=== PATIENT | male | born 1970 | race Caucasian/White ===

== ENCOUNTER 2018-01-16 14:44 | Inpatient (IN) | payer MEDICARE, OTHER ==
[~2018-01-16] VITALS: Ht 170.2 cm; Wt 56.7 kg
--- NOTE | 2018-01-16 14:47 | Emergency Room Report ---
History of Present Illness General Chief Complaint: Fever Source: EMS Present Illness HPI Patient is a 47-year-old male brought in by EMS after increased fever and generalized weakness. Patient had gradual onset of symptoms. Patient had diminished oral intake. Patient prior history of COPD as well as [place]'s chorea and paranoid schizophrenia. The patient was noted a temperature up to 101. History is markedly limited by patient's mental status. Patient is nonverbal at baseline per EMS Allergies: Coded Allergies: No Known Allergies (Unverified , 01/16/18) Patient History Past Medical History: see triage record Reviewed Nursing Documentation: PMH: Agreed; PSxH: Agreed Review of Systems All Other Systems: limited - by mental status Physical Exam Vital Signs Date Time Temp Pulse Resp B/P (MAP) Pulse Ox O2 Delivery O2 Flow Rate FiO2 01/16/18 14:38 101.0 106 16 163/84 96 Room Air 100.9 Sp02 EP Interpretation: reviewed, normal General Appearance: normal inspection, alert, Chronically Ill Head: atraumatic ENT: normal ENT inspection, hearing grossly normal, normal voice Neck: normal inspection, full range of motion, supple, no bony tend Respiratory: normal inspection, lungs clear, normal breath sounds, no respiratory distress, no retraction, no wheezing Cardiovascular #1: regular rate, rhythm, no edema Gastrointestinal: normal inspection, normal bowel sounds, non tender, soft, no guarding, no hernia Genitourinary: no CVA tenderness Musculoskeletal: normal inspection, back normal, normal range of motion Neurologic: normal inspection, alert, responsive, motor weakness, other - choreaform movements Psychiatric: normal inspection, judgement/insight normal, mood/affect normal Skin: normal inspection, normal color, no rash Medical Decision Making Diagnostic Impression: Primary Impression: Sepsis Additional Impression: Rhabdomyolysis ER Course Patient presented for fever. Differential diagnosis included wasn't limited to pneumonia, urinary tract infection, drug fever, allergic reaction, sepsis, cholecystitis, among others.Because of complexity of patient's case laboratory testing and imaging studies were ordered.The white blood count was noted be mildly elevated. Patient was noted to be febrile with temperature greater than 101. A coud catheter was placed.Dr. Shaheed Vazquez was contacted for inpatient management due to complexity of medical condition. Labs Test 01/16/18 15:15 01/16/18 16:00 01/16/18 16:45 White Blood Count 12.6 K/UL (4.8-10.8) Red Blood Count 4.87 M/UL (4.70-6.10) Hemoglobin 14.6 G/DL (14.2-18.0) Hematocrit 43.7 % (42.0-52.0) Mean Corpuscular Volume 90 FL (80-99) Mean Corpuscular Hemoglobin 29.9 PG (27.0-31.0) Mean Corpuscular Hemoglobin Concent 33.4 G/DL (32.0-36.0) Red Cell Distribution Width 11.0 % (11.6-14.8) Platelet Count 181 K/UL (150-450) Mean Platelet Volume 7.4 FL (6.5-10.1) Neutrophils (%) (Auto) % (45.0-75.0) Lymphocytes (%) (Auto) % (20.0-45.0) Monocytes (%) (Auto) % (1.0-10.0) Eosinophils (%) (Auto) % (0.0-3.0) Basophils (%) (Auto) % (0.0-2.0) Differential Total Cells Counted 100 Neutrophils % (Manual) 77 % (45-75) Lymphocytes % (Manual) 4 % (20-45) Monocytes % (Manual) 3 % (1-10) Eosinophils % (Manual) 0 % (0-3) Basophils % (Manual) 0 % (0-2) Band Neutrophils 16 % (0-8) Platelet Estimate Adequate Platelet Morphology Normal Red Blood Cell Morphology Normal Sodium Level 143 MMOL/L (136-145) Potassium Level 3.7 MMOL/L (3.5-5.1) Chloride Level 107 MMOL/L (98-107) Carbon Dioxide Level 27 MMOL/L (21-32) Anion Gap 10 mmol/L (5-15) Blood Urea Nitrogen 23 mg/dL (7-18) Creatinine 1.0 MG/DL (0.55-1.30) Estimat Glomerular Filtration Rate > 60 mL/min (>60) Glucose Level 183 MG/DL (74-106) Calcium Level 9.2 MG/DL (8.5-10.1) Phosphorus Level 2.4 MG/DL (2.5-4.9) Magnesium Level 1.9 MG/DL (1.8-2.4) Total Bilirubin 1.5 MG/DL (0.2-1.0) Direct Bilirubin 0.3 MG/DL (0.0-0.3) Aspartate Amino Transf (AST/SGOT) 345 U/L (15-37) Alanine Aminotransferase (ALT/SGPT) 141 U/L (12-78) Alkaline Phosphatase 80 U/L (46-116) Total Creatine Kinase 57880 U/L (26-308) Creatine Kinase MB 79.9 NG/ML (0.0-3.6) Creatine Kinase MB Relative Index 0.6 Troponin I 0.014 ng/mL (0.000-0.056) Total Protein 8.0 G/DL (6.4-8.2) Albumin 3.8 G/DL (3.4-5.0) Globulin 4.2 g/dL Albumin/Globulin Ratio 0.9 (1.0-2.7) Urine Color Yellow Urine Appearance Clear Urine pH 5 (4.5-8.0) Urine Specific [place] 1.025 (1.005-1.035) Urine Protein 3+ (NEGATIVE) Urine Glucose (UA) 2+ (NEGATIVE) Urine Ketones 1+ (NEGATIVE) Urine Occult Blood 5+ (NEGATIVE) Urine Nitrite Negative (NEGATIVE) Urine Bilirubin Negative (NEGATIVE) Urine Urobilinogen 4 MG/DL (0.0-1.0) Urine Leukocyte Esterase 1+ (NEGATIVE) Urine RBC 5-10 /HPF (0 - 0) Urine WBC 2-4 /HPF (0 - 0) Urine Squamous Epithelial Cells None /LPF (NONE/OCC) Urine Amorphous Sediment Few /LPF (NONE) Urine Bacteria Few /HPF (NONE) Lactic Acid Level 1.50 mmol/L (0.66-2.22) EKG Diagnostic Results Rate: normal - 99 Rhythm: NSR ST Segments: no acute changes Last Vital Signs Date Time Temp Pulse Resp B/P (MAP) Pulse Ox O2 Delivery O2 Flow Rate FiO2 01/16/18 14:38 101.0 106 16 163/84 96 Room Air 100.9 Status: unchanged Disposition: ADMITTED INPATIENT Condition: Serious Gautam Monzon MD January 16, 2018 14:47
[2018-01-16 14:48] VITALS: BP 163/84
[2018-01-16] MEDS ORDERED: Ampicillin/Sulbactam Sod 3 GM in NS 110 ML IV SCH (15:00)
[2018-01-16 15:52] LABS: HEMATOCRIT 43.7 % (42.0-52.0); HEMOGLOBIN 14.6 G/DL (14.2-18.0); MEAN CORPUSCULAR VOLUME 90 FL (80-99); PLATELET COUNT 181 K/UL (150-450); RED BLOOD COUNT 4.87 M/UL (4.70-6.10); WHITE BLOOD COUNT 12.6 K/UL (4.8-10.8)
[2018-01-16] MEDS ORDERED: mylanta (15:56)
[2018-01-16] MEDS ORDERED: NOVOLOG100 UNITS1 (15:56)
[2018-01-16] MEDS ORDERED: MILK OF MA400 MG/51 ORAL (15:56)
[2018-01-16] MEDS ORDERED: LAMICTAL150 MG ORAL (15:56)
[2018-01-16] MEDS ORDERED: SEROQUEL25 MG ORAL (15:56)
[2018-01-16] MEDS ORDERED: KLONOPIN1 MG ORAL (15:56)
[2018-01-16] MEDS ORDERED: AMANTADINE100 MG ORAL (15:56)
[2018-01-16] MEDS ORDERED: ACETAMINOPHEN120 MG PO (15:56)
[2018-01-16 16:03] LABS: ANION GAP 10 mmol/L (5-15); BLOOD UREA NITROGEN 23 mg/dL (7-18); CALCIUM 9.2 MG/DL (8.5-10.1); CARBON DIOXIDE 27 MMOL/L (21-32); CHLORIDE 107 MMOL/L (98-107); POTASSIUM 3.7 MMOL/L (3.5-5.1); SODIUM 143 MMOL/L (136-145)
[2018-01-16] MEDS ORDERED: Acetaminophen 650 MG SUPP RECTAL ONE (16:15)
[2018-01-16 16:20] LABS: ALANINE AMINOTRANSFERASE 141 U/L (12-78); ALBUMIN 3.8 G/DL (3.4-5.0); ALBUMIN/GLOBULIN RATIO 0.9 (1.0-2.7); ALKALINE PHOSPHATASE 80 U/L (46-116); ASPARTATE AMINO TRANSFERASE 345 U/L (15-37); BILIRUBIN,TOTAL 1.5 MG/DL (0.2-1.0); CKMB 79.9 NG/ML (0.0-3.6); CREATINE KINASE 11712 U/L (26-308); PHOSPHORUS 2.4 MG/DL (2.5-4.9)
[2018-01-16 16:25] LABS: BILIRUBIN,DIRECT 0.3 MG/DL (0.0-0.3)
--- NOTE | 2018-01-16 16:36 | Diagnostic Imaging Report ---
Indication: Dyspnea Technique: XRAY Chest 1v Comparison: None Findings: Rotated to the left. Heart size and mediastinal contours are within normal limits given technique. There is no focal consolidation, pneumothorax or pleural effusion. Osseous structures demonstrate no acute abnormality. Prominent nonspecific colonic gas. IMPRESSION: No radiographic evidence of acute cardiopulmonary disease. Prominent nonspecific colonic gas.
[2018-01-16 16:51] LABS: APPEARANCE,URINE CLEAR; BILIRUBIN, URINE NEGATIVE (NEGATIVE); GLUCOSE, URINE (UA) 2+ (NEGATIVE); KETONES,URINE 1+ (NEGATIVE); LEUKOCYTE ESTERASE ,URINE 1+ (NEGATIVE); NITRITE,URINE NEGATIVE (NEGATIVE); PH,URINE 5 (4.5-8.0); PROTEIN,URINE 3+ (NEGATIVE); UROBILINOGEN,URINE 4 MG/DL (0.0-1.0)
[2018-01-16 16:56] LABS: COLOR,URINE YELLOW
[2018-01-16 16:58] VITALS: BP 110/66
[2018-01-16 19:04] VITALS: BP 124/108
[2018-01-16 19:45] VITALS: BP 107/69
[2018-01-16] MEDS ORDERED: CLONAZEPAM1 MG PO (20:40)
[2018-01-16] MEDS ORDERED: [UNRECOGNIZED DRUG - OTHER] PO (20:40)
[2018-01-16] MEDS ORDERED: mylanta PO (20:42)
[2018-01-16] MEDS ORDERED: MOM30 ML ORAL (20:43)
[2018-01-17] VITALS (8 sets, daily range): BP systolic 97–156; BP diastolic 52–73
[2018-01-17] MEDS ORDERED: Nitroglycerin Subl 0.4mg tab SL PRN ×2 (01:30→13:30)
[2018-01-17] MEDS ORDERED: Albuterol/Ipratropium 3ml neb HHN PRN ×2 (01:30→13:30)
[2018-01-17] MEDS ORDERED: Miralax 17gm pkt ORAL PRN ×2 (01:30→13:30)
[2018-01-17] MEDS ORDERED: Vancomycin 1 GM in D5W 275 ML IVPB SCH (02:00)
[2018-01-17] MEDS ORDERED: Acetaminophen 650 MG SUPP RECTAL PRN ×2 (06:45→14:00)
--- NOTE | 2018-01-17 08:12 | General Progress Note ---
Progress Note Progress Note [id number] full consult dictated Sary Acuña MD January 17, 2018 08:11
[2018-01-17] MEDS ORDERED: Heparin 5000 units/ml inj SUBQ SCH (09:00)
[2018-01-17] MEDS ORDERED: Cefepime HCl 2 GM in D5W 110 ML IV SCH ×2 (09:00→21:00)
[2018-01-17] MEDS ORDERED: Amantadine 100mg cap ORAL SCH (09:00)
--- NOTE | 2018-01-17 09:13 | Diagnostic Imaging Report ---
Indication: Cough Technique: One view of the chest Comparison: 01/16/2018 Findings: Lungs and pleural spaces are clear. Heart size is normal. No significant interim change Impression: No acute process
--- NOTE | 2018-01-17 10:00 | Consultation ---
DATE OF CONSULTATION: 01/17/2018 NEPHROLOGY CONSULTATION CONSULTING PHYSICIAN: Sary Acuña M.D. REFERRING PHYSICIAN: Shaheed Vazquez D.O. REASON FOR CONSULTATION: Acute rhabdomyolysis. HISTORY OF PRESENT ILLNESS: The patient is a 47-year-old unfortunate male with multiple medical history including chronic obstructive pulmonary disease, [place] chorea, and history of paranoid schizophrenia, apparently was found to have failure to thrive and decreased oral intake and also [facility], the patient was found to have a temperature of 101. The patient's mental status was changed and consequently was brought in to [facility]. Upon arrival in the ER, the patient was found to have a temperature of 101, although his blood pressure was maintaining at 163/84. The patient was started on boluses of intravenous fluids. Upon initial workup in the ER, the patient was found to have a rhabdomyolysis and found to be severely dehydrated and was started on broad-spectrum antibiotic and admitted in the hospital. I was called for management of renal disease and electrolyte imbalance. Unfortunately, the patient is not able to provide meaningful history for me. Most of my history is obtained through the information obtained from the chart and emergency room. The patient currently is in his bed and seems to be confused. PAST MEDICAL HISTORY: 1. History of schizophrenia. 2. [place] chorea. 3. Chronic obstructive pulmonary disease. 4. Failure to thrive. PAST SURGICAL HISTORY: None. MEDICATIONS: 1. Tylenol 120 suppository p.r.n. fever. 2. Amantadine 100 mg p.o. daily. 3. Clonazepam mg daily. 4. Lamictal 150 mg p.o. b.i.d. 5. Milk of magnesia 400 mg p.r.n. 6. Seroquel 25 mg p.o. daily. 7. Benztropine 1 mg p.o. q.i.d. 8. Mylanta p.r.n. ALLERGIES: He has no known drug allergies. FAMILY HISTORY: Noncontributory. REVIEW OF SYSTEMS: Unable to obtain due to the patient's condition and mental status. PHYSICAL EXAMINATION: VITAL SIGNS: The patient has a temperature of a 100.6, dropped down from 103, blood pressure is 121/52, pulse rate of 84, and respiratory rate of 18. HEAD AND NECK: He has multiple lesions on his forehead on the right side, which seems to be scratches, but also may represent possible herpes infection. Mucous membrane are dry. The patient has bitemporal wasting. Sclerae are icteric. Head is normocephalic and atraumatic. LUNGS: Clear to auscultation. CARDIAC: Regular rate and rhythm. S1 and S2. No murmur. No rub. ABDOMEN: Soft, nontender, and nondistended. EXTREMITIES: Has on his right knee. Otherwise, no edema, no clubbing, and no cyanosis. GENITOURINARY: Mckeon catheter is draining a dark color urine, otherwise negative. LABORATORY AND DIAGNOSTIC DATA: Based on the labs from last night, the patient has sodium of 143, potassium 3.7, chloride 107, bicarb 27, BUN is 23, creatinine is 1, and glucose of 183. Calcium of 9.2, phosphorus 2.4, and magnesium 1.9. Total bilirubin of 1.7. AST of 345 and ALT of 141. CPK is 11,712. CK-MB is 79. CBC revealed WBC count of 12.6, hemoglobin of 14.6, hematocrit of 43, and platelet count of 181,000 . UA revealed specific gravity of 1.025, protein 3+, glucose 2+, ketones 1+, blood 5+, and rbc of 5 to 10 . The patient had a chest x-ray, which revealed no evidence of cardiopulmonary disease. ASSESSMENT: 1. Acute rhabdomyolysis based on the elevated CK-MB and urine studies. 2. Possible diabetes with elevated blood sugar and ketone and glucose in the urine. 3. Proteinuria with 3+ and need to rule out causes of nephrotic range proteinuria. 4. Fever. 5. Altered mental status. PLAN: Check the random urine protein-creatinine ratio to calculate the proteinuria based on the 4+ protein in the urine. Check the urine sodium and creatinine to calculate fractional excretion of sodium. I agree with the half normal saline at 100 mL/hour. I would start the patient on broad-spectrum antibiotics for possible urinary tract infection. I would also ultrasound the kidney to evaluate for possible pyelonephritis. I would check the pre-albumin level for evaluation of nutritional status. Again, I would like to thank, Dr. Shaheed Vazquez, for allowing me to participate in the care of this patient. [facility] Serina Acuña DR: KARRIE JOB#: [id number] CC:
--- NOTE | 2018-01-17 10:59 | Consultation ---
History of Present Illness General Date patient seen: January 17, 2018 Chief Complaint: Fever Reason for Consultation: COPD Present Illness HPI 47-year-old male with hx of [place] chorea disease, COPD, cachexia, paranoid schizophrenia brought in by EMS after increased fever and generalized weakness with gradual onset of symptoms. Patient had diminished oral intake. The patient was noted a temperature up to 101. He is admitted for further evaluation. Allergies: Coded Allergies: No Known Allergies (Unverified , 01/16/18) Medication History Scheduled Amantadine Hcl* (Symmetrel*), 100 MG ORAL TWICE A DAY, (Reported) Clonazepam (Clonazepam), 1 MG PO DAILY, (Reported) Lamotrigine* (Lamictal*), 100 MG ORAL TWICE A DAY, (Reported) Magnesium Hydroxide* (Milk Of Magnesia*), 30 ML ORAL DAILY, (Reported) Quetiapine Fumarate* (Seroquel*), 50 MG ORAL TWICE A DAY, (Reported) [benzotropics], 1 MG PO QID, (Reported) Scheduled PRN Acetaminophen* (Tylenol*), 650 MG PO Q4H PRN for Mild Pain/Temp > 100.5, ( Reported) Magnesium Hydroxide (Milk of Magnesia), 30 ML ORAL Q6HR PRN for Constipation, ( Reported) [mylanta], 30 ML PO Q4HR PRN for To Patient Comfort, (Reported) Miscellaneous Medications Insulin Aspart (Novolog Flexpen), (Reported) Discontinued Medications Clonazepam* (Klonopin*), 1 MG ORAL Q6H, (Reported) Discontinued Reason: discontinued med [mylanta], 30, (Reported) Discontinued Reason: Medication dose changed Patient History Healthcare decision maker N Resuscitation status Full Code Advanced Directive on File Past Medical/Surgical History Past Medical/Surgical History: (1) [place] chorea (2) COPD (chronic obstructive pulmonary disease) (3) Schizophrenia Review of Systems All Other Systems: negative except mentioned in HPI Physical Exam General Appearance: cachetic Lines, tubes and drains: peripheral HEENT: normocephalic, atraumatic Neck: non-tender, normal alignment Respiratory/Chest: chest wall non-tender, lungs clear Breasts: no masses Cardiovascular/Chest: normal peripheral pulses Abdomen: normal bowel sounds Genitourinary/Rectal: normal genital exam Extremities: normal range of motion Skin Exam: normal pigmentation Last 24 Hour Vital Signs Date Time Temp Pulse Resp B/P (MAP) Pulse Ox O2 Delivery O2 Flow Rate FiO2 01/17/18 08:00 97.7 86 20 123/57 95 97.7 01/17/18 08:00 93 01/17/18 07:19 97.9 01/17/18 06:49 100.8 01/17/18 04:00 88 01/17/18 04:00 100.6 84 22 121/52 96 Room Air 100.6 01/17/18 00:00 97.7 96 20 97/57 94 Room Air 97.7 01/17/18 00:00 108 01/16/18 21:10 108 01/16/18 20:04 103.3 107 24 124/108 96 Room Air 103.3 01/16/18 19:45 101.1 106 22 107/69 94 Room Air 101.1 01/16/18 19:04 103.3 107 24 124/108 96 Room Air 103.3 01/16/18 17:54 103.3 01/16/18 17:24 102.7 01/16/18 16:58 102.7 106 25 110/66 96 Room Air 102.7 01/16/18 14:48 103.1 105 16 163/84 96 Room Air 103.1 01/16/18 14:38 101.0 106 16 163/84 96 Room Air 100.9 Intake and Output 01/16/18 01/17/18 19:00 07:00 Intake Total 1100 ml 725.0 ml Output Total 1000 ml Balance 1100 ml -275.0 ml Intake IV Total 1100 ml 725.0 ml Output Urine Total 1000 ml # Voids 1 # Bowel Movements 1 Laboratory Tests Test 01/16/18 15:15 01/16/18 16:00 01/16/18 16:45 White Blood Count 12.6 K/UL (4.8-10.8) H Red Blood Count 4.87 M/UL (4.70-6.10) Hemoglobin 14.6 G/DL (14.2-18.0) Hematocrit 43.7 % (42.0-52.0) Mean Corpuscular Volume 90 FL (80-99) Mean Corpuscular Hemoglobin 29.9 PG (27.0-31.0) Mean Corpuscular Hemoglobin Concent 33.4 G/DL (32.0-36.0) Red Cell Distribution Width 11.0 % (11.6-14.8) L Platelet Count 181 K/UL (150-450) Mean Platelet Volume 7.4 FL (6.5-10.1) Neutrophils (%) (Auto) % (45.0-75.0) Lymphocytes (%) (Auto) % (20.0-45.0) Monocytes (%) (Auto) % (1.0-10.0) Eosinophils (%) (Auto) % (0.0-3.0) Basophils (%) (Auto) % (0.0-2.0) Differential Total Cells Counted 100 Neutrophils % (Manual) 77 % (45-75) H Lymphocytes % (Manual) 4 % (20-45) L Monocytes % (Manual) 3 % (1-10) Eosinophils % (Manual) 0 % (0-3) Basophils % (Manual) 0 % (0-2) Band Neutrophils 16 % (0-8) H Platelet Estimate Adequate Platelet Morphology Normal Red Blood Cell Morphology Normal Sodium Level 143 MMOL/L (136-145) Potassium Level 3.7 MMOL/L (3.5-5.1) Chloride Level 107 MMOL/L (98-107) Carbon Dioxide Level 27 MMOL/L (21-32) Anion Gap 10 mmol/L (5-15) Blood Urea Nitrogen 23 mg/dL (7-18) H Creatinine 1.0 MG/DL (0.55-1.30) Estimat Glomerular Filtration Rate > 60 mL/min (>60) Glucose Level 183 MG/DL (74-106) H Lactic Acid Level 2.50 mmol/L (0.66-2.22) H 1.50 mmol/L (0.66-2.22) Calcium Level 9.2 MG/DL (8.5-10.1) Phosphorus Level 2.4 MG/DL (2.5-4.9) L Magnesium Level 1.9 MG/DL (1.8-2.4) Total Bilirubin 1.5 MG/DL (0.2-1.0) H Direct Bilirubin 0.3 MG/DL (0.0-0.3) Aspartate Amino Transf (AST/SGOT) 345 U/L (15-37) H Alanine Aminotransferase (ALT/SGPT) 141 U/L (12-78) H Alkaline Phosphatase 80 U/L (46-116) Total Creatine Kinase 58034 U/L (26-308) H Creatine Kinase MB 79.9 NG/ML (0.0-3.6) H Creatine Kinase MB Relative Index 0.6 Troponin I 0.014 ng/mL (0.000-0.056) Total Protein 8.0 G/DL (6.4-8.2) Albumin 3.8 G/DL (3.4-5.0) Globulin 4.2 g/dL Albumin/Globulin Ratio 0.9 (1.0-2.7) L Urine Color Yellow Urine Appearance Clear Urine pH 5 (4.5-8.0) Urine Specific [place] 1.025 (1.005-1.035) Urine Protein 3+ (NEGATIVE) H Urine Glucose (UA) 2+ (NEGATIVE) H Urine Ketones 1+ (NEGATIVE) H Urine Occult Blood 5+ (NEGATIVE) H Urine Nitrite Negative (NEGATIVE) Urine Bilirubin Negative (NEGATIVE) Urine Urobilinogen 4 MG/DL (0.0-1.0) H Urine Leukocyte Esterase 1+ (NEGATIVE) H Urine RBC 5-10 /HPF (0 - 0) H Urine WBC 2-4 /HPF (0 - 0) Urine Squamous Epithelial Cells None /LPF (NONE/OCC) Urine Amorphous Sediment Few /LPF (NONE) H Urine Bacteria Few /HPF (NONE) Height (Feet): 5 Height (Inches): 7.00 Weight (Pounds): 123 Medications Current Medications Medications (Trade) Dose Ordered Sig/Javi Route PRN Reason Start Time Stop Time Status Last Admin Dose Admin Acetaminophen (Tylenol) 650 mg Q4H PRN RECTAL Mild Pain/Temp > 100.5 01/17/18 06:45 02/16/18 06:44 01/17/18 06:49 Albuterol/ Ipratropium (Albuterol/ Ipratropium) 3 ml Q4H PRN HHN Shortness of Breath 01/17/18 01:30 01/22/18 01:29 Amantadine HCl (Symmetrel) 100 mg TWICE A DAY ORAL 01/17/18 09:00 02/16/18 08:59 Cefepime HCl 2 gm/ Dextrose 110 ml @ 220 mls/hr EVERY 12 HOURS IV 01/17/18 09:00 01/24/18 08:59 01/17/18 09:45 Clonazepam (KlonoPIN) 1 mg DAILY ORAL 01/17/18 09:00 01/24/18 08:59 Dextrose (Dextrose 50%) 25 ml STAT PRN IV Hypoglycemia 01/17/18 07:45 02/16/18 07:44 Dextrose (Dextrose 50%) 50 ml STAT PRN IV Hypoglycemia 01/17/18 07:45 02/16/18 07:44 Heparin Sodium (Porcine) (Heparin 5000 units/ml) 5,000 units EVERY 12 HOURS SUBQ 01/17/18 09:00 02/16/18 08:59 Insulin Aspart (NovoLOG) BEFORE MEALS AND HS SUBQ 01/17/18 11:30 02/16/18 11:29 Lamotrigine (LaMICtal) 100 mg TWICE A DAY ORAL 01/17/18 09:00 02/16/18 08:59 Nitroglycerin (Ntg) 0.4 mg Q5M PRN SL Prn Chest Pain 01/17/18 01:30 02/16/18 01:29 Ondansetron HCl (Zofran) 4 mg Q6H PRN IVP Nausea & Vomiting 01/17/18 01:30 02/16/18 01:29 Polyethylene Glycol (Miralax) 17 gm DAILYPRN PRN ORAL Constipation 01/17/18 01:30 02/16/18 01:29 Quetiapine Fumarate (SEROquel) 50 mg TWICE A DAY ORAL 01/17/18 09:00 02/16/18 08:59 Sodium Chloride 1,000 ml @ 150 mls/hr Q6H40M IV 01/17/18 01:21 02/16/18 01:20 01/17/18 08:01 Temazepam (Restoril) 15 mg HSPRN PRN ORAL Insomnia 01/17/18 01:30 01/24/18 01:29 Vancomycin HCl 1 gm/Dextrose 275 ml @ 183.3 mls/ hr Q12H IVPB 01/17/18 02:00 01/22/18 01:59 01/17/18 02:16 Assessment/Plan Problem List: (1) Sepsis ICD Codes: A41.9 - Sepsis, unspecified organism SNOMED: 85342946 (2) COPD (chronic obstructive pulmonary disease) ICD Codes: J44.9 - Chronic obstructive pulmonary disease, unspecified SNOMED: 60130955 (3) [place] chorea ICD Codes: G10 - [place]'s disease SNOMED: 18857674 (4) Schizophrenia ICD Codes: F20.9 - Schizophrenia, unspecified SNOMED: 68259003 (5) Protein-calorie malnutrition, severe ICD Codes: E43 - Unspecified severe protein-calorie malnutrition SNOMED: 739467995 (6) Failure to thrive SNOMED: 86396588 Assessment/Plan martel cultures iv abx check wbc psychiatry evaluation calorie count swallow evaluation. Annie Bryant MD January 17, 2018 10:59
[2018-01-17] MEDS ORDERED: NovoLOG Insulin Flexpen SUBQ SCH (11:30)
[2018-01-17 11:33] LABS: APPEARANCE,URINE SLIGHTLY CLOUDY; BILIRUBIN, URINE 1+ (NEGATIVE); GLUCOSE, URINE (UA) NEGATIVE (NEGATIVE); KETONES,URINE 1+ (NEGATIVE); LEUKOCYTE ESTERASE ,URINE 2+ (NEGATIVE); NITRITE,URINE NEGATIVE (NEGATIVE); PH,URINE 5 (4.5-8.0); PROTEIN,URINE 3+ (NEGATIVE); UROBILINOGEN,URINE 1 MG/DL (0.0-1.0)
[2018-01-17 11:56] LABS: COLOR,URINE YELLOW
[2018-01-17] MEDS ORDERED: Haloperidol 5mg/ml Inj IM PRN (13:00)
--- NOTE | 2018-01-17 13:45 | Consultation ---
History of Present Illness General Date patient seen: January 17, 2018 Chief Complaint: Fever Reason for Consultation: COPD Present Illness HPI 47-year-old male with hx of MDD, Betzy chorea disease, COPD, cachexia, paranoid schizophrenia brought in by EMS after increased fever and generalized weakness and decrease po intake. The pt has been combative and agitated during the admission. the pt was calm without behavior. No si/hi. Sitter next to bed Allergies: Coded Allergies: No Known Allergies (Unverified , 01/16/18) Medication History Scheduled Amantadine Hcl* (Symmetrel*), 100 MG ORAL TWICE A DAY, (Reported) Clonazepam (Clonazepam), 1 MG PO DAILY, (Reported) Lamotrigine* (Lamictal*), 100 MG ORAL TWICE A DAY, (Reported) Magnesium Hydroxide* (Milk Of Magnesia*), 30 ML ORAL DAILY, (Reported) Quetiapine Fumarate* (Seroquel*), 50 MG ORAL TWICE A DAY, (Reported) [benzotropics], 1 MG PO QID, (Reported) Scheduled PRN Acetaminophen* (Tylenol*), 650 MG PO Q4H PRN for Mild Pain/Temp > 100.5, ( Reported) Magnesium Hydroxide (Milk of Magnesia), 30 ML ORAL Q6HR PRN for Constipation, ( Reported) [mylanta], 30 ML PO Q4HR PRN for To Patient Comfort, (Reported) Miscellaneous Medications Insulin Aspart (Novolog Flexpen), (Reported) Discontinued Medications Clonazepam* (Klonopin*), 1 MG ORAL Q6H, (Reported) Discontinued Reason: discontinued med [mylanta], 30, (Reported) Discontinued Reason: Medication dose changed Patient History History Provided By: Patient, Medical Record, PMD Healthcare decision maker N Resuscitation status Full Code Advanced Directive on File Past Medical/Surgical History Past Medical/Surgical History: (1) Rhabdomyolysis (2) COPD (chronic obstructive pulmonary disease) (3) Crandall chorea (4) Schizophrenia (5) Failure to thrive (6) Sepsis (7) Protein-calorie malnutrition, severe Review of Systems Psychiatric: Reports: prior hx, anxiety, depressed feelings, emotional problems Physical Exam General Appearance: WD/WN, no apparent distress, lethargic, confused Last 24 Hour Vital Signs Date Time Temp Pulse Resp B/P (MAP) Pulse Ox O2 Delivery O2 Flow Rate FiO2 01/17/18 12:10 97.3 79 20 156/73 95 97.3 01/17/18 12:00 81 01/17/18 12:00 97.3 79 20 156/73 95 97.3 01/17/18 08:00 97.7 86 20 123/57 95 97.7 01/17/18 08:00 93 01/17/18 07:19 97.9 01/17/18 06:49 100.8 01/17/18 04:00 88 01/17/18 04:00 100.6 84 22 121/52 96 Room Air 100.6 01/17/18 00:00 97.7 96 20 97/57 94 Room Air 97.7 01/17/18 00:00 108 01/16/18 21:10 108 01/16/18 20:04 103.3 107 24 124/108 96 Room Air 103.3 01/16/18 19:45 101.1 106 22 107/69 94 Room Air 101.1 01/16/18 19:04 103.3 107 24 124/108 96 Room Air 103.3 01/16/18 17:54 103.3 01/16/18 17:24 102.7 01/16/18 16:58 102.7 106 25 110/66 96 Room Air 102.7 01/16/18 14:48 103.1 105 16 163/84 96 Room Air 103.1 01/16/18 14:38 101.0 106 16 163/84 96 Room Air 100.9 Intake and Output 01/16/18 01/17/18 19:00 07:00 Intake Total 1100 ml 725.0 ml Output Total 1000 ml Balance 1100 ml -275.0 ml Intake IV Total 1100 ml 725.0 ml Output Urine Total 1000 ml # Voids 1 # Bowel Movements 1 Laboratory Tests Test 01/16/18 15:15 01/16/18 16:00 01/16/18 16:45 01/17/18 11:00 White Blood Count 12.6 K/UL (4.8-10.8) H Red Blood Count 4.87 M/UL (4.70-6.10) Hemoglobin 14.6 G/DL (14.2-18.0) Hematocrit 43.7 % (42.0-52.0) Mean Corpuscular Volume 90 FL (80-99) Mean Corpuscular Hemoglobin 29.9 PG (27.0-31.0) Mean Corpuscular Hemoglobin Concent 33.4 G/DL (32.0-36.0) Red Cell Distribution Width 11.0 % (11.6-14.8) L Platelet Count 181 K/UL (150-450) Mean Platelet Volume 7.4 FL (6.5-10.1) Neutrophils (%) (Auto) % (45.0-75.0) Lymphocytes (%) (Auto) % (20.0-45.0) Monocytes (%) (Auto) % (1.0-10.0) Eosinophils (%) (Auto) % (0.0-3.0) Basophils (%) (Auto) % (0.0-2.0) Differential Total Cells Counted 100 Neutrophils % (Manual) 77 % (45-75) H Lymphocytes % (Manual) 4 % (20-45) L Monocytes % (Manual) 3 % (1-10) Eosinophils % (Manual) 0 % (0-3) Basophils % (Manual) 0 % (0-2) Band Neutrophils 16 % (0-8) H Platelet Estimate Adequate Platelet Morphology Normal Red Blood Cell Morphology Normal Sodium Level 143 MMOL/L (136-145) Potassium Level 3.7 MMOL/L (3.5-5.1) Chloride Level 107 MMOL/L (98-107) Carbon Dioxide Level 27 MMOL/L (21-32) Anion Gap 10 mmol/L (5-15) Blood Urea Nitrogen 23 mg/dL (7-18) H Creatinine 1.0 MG/DL (0.55-1.30) Estimat Glomerular Filtration Rate > 60 mL/min (>60) Glucose Level 183 MG/DL (74-106) H Lactic Acid Level 2.50 mmol/L (0.66-2.22) H 1.50 mmol/L (0.66-2.22) Calcium Level 9.2 MG/DL (8.5-10.1) Phosphorus Level 2.4 MG/DL (2.5-4.9) L Magnesium Level 1.9 MG/DL (1.8-2.4) Total Bilirubin 1.5 MG/DL (0.2-1.0) H Direct Bilirubin 0.3 MG/DL (0.0-0.3) Aspartate Amino Transf (AST/SGOT) 345 U/L (15-37) H Alanine Aminotransferase (ALT/SGPT) 141 U/L (12-78) H Alkaline Phosphatase 80 U/L (46-116) Total Creatine Kinase 93707 U/L (26-308) H Creatine Kinase MB 79.9 NG/ML (0.0-3.6) H Creatine Kinase MB Relative Index 0.6 Troponin I 0.014 ng/mL (0.000-0.056) Total Protein 8.0 G/DL (6.4-8.2) Albumin 3.8 G/DL (3.4-5.0) Globulin 4.2 g/dL Albumin/Globulin Ratio 0.9 (1.0-2.7) L Urine Color Yellow Yellow Urine Appearance Clear Slightly cloudy Urine pH 5 (4.5-8.0) 5 (4.5-8.0) Urine Specific [place] 1.025 (1.005-1.035) 1.025 (1.005-1.035) Urine Protein 3+ (NEGATIVE) H 3+ (NEGATIVE) H Urine Glucose (UA) 2+ (NEGATIVE) H Negative (NEGATIVE) Urine Ketones 1+ (NEGATIVE) H 1+ (NEGATIVE) H Urine Occult Blood 5+ (NEGATIVE) H 5+ (NEGATIVE) H Urine Nitrite Negative (NEGATIVE) Negative (NEGATIVE) Urine Bilirubin Negative (NEGATIVE) 1+ (NEGATIVE) H Urine Urobilinogen 4 MG/DL (0.0-1.0) H 1 MG/DL (0.0-1.0) H Urine Leukocyte Esterase 1+ (NEGATIVE) H 2+ (NEGATIVE) H Urine RBC 5-10 /HPF (0 - 0) H 60-80 /HPF (0 - 0) H Urine WBC 2-4 /HPF (0 - 0) 5-10 /HPF (0 - 0) H Urine Squamous Epithelial Cells None /LPF (NONE/OCC) Occasional /LPF Urine Amorphous Sediment Few /LPF (NONE) H Few /LPF (NONE) H Urine Bacteria Few /HPF (NONE) Few /HPF (NONE) Urine Ictotest Negative Urine Random Total Protein 151 MG/DL (< 11.9) H Urine Random Sodium 20 mmol/L (20-110) Urine Creatinine 213.0 MG/DL (30.0-125.0) H Microbiology Date/Time Source Procedure Growth Status 01/16/18 15:20 Blood Blood Culture - Preliminary Resulted 01/16/18 15:15 Blood Blood Culture - Preliminary Resulted Height (Feet): 5 Height (Inches): 7.00 Weight (Pounds): 123 Medications Current Medications Medications (Trade) Dose Ordered Sig/Javi Route PRN Reason Start Time Stop Time Status Last Admin Dose Admin Acetaminophen (Tylenol) 650 mg Q4H PRN RECTAL Mild Pain/Temp > 100.5 01/17/18 14:00 02/16/18 13:59 Albuterol/ Ipratropium (Albuterol/ Ipratropium) 3 ml Q4H PRN HHN Shortness of Breath 01/17/18 13:30 01/22/18 13:29 Amantadine HCl (Symmetrel) 100 mg TWICE A DAY ORAL 01/17/18 18:00 02/16/18 08:59 Cefepime HCl 2 gm/ Dextrose 110 ml @ 220 mls/hr EVERY 12 HOURS IV 01/17/18 21:00 01/24/18 08:59 Clonazepam (KlonoPIN) 1 mg DAILY ORAL 01/18/18 09:00 01/24/18 08:59 Dextrose (Dextrose 50%) 25 ml STAT PRN IV Hypoglycemia 01/17/18 14:30 02/16/18 14:29 Dextrose (Dextrose 50%) 50 ml STAT PRN IV Hypoglycemia 01/17/18 14:30 02/16/18 14:29 Haloperidol Lactate (Haldol) 5 mg Q6H PRN IM Agitation 01/17/18 14:30 02/16/18 14:29 Heparin Sodium (Porcine) (Heparin 5000 units/ml) 5,000 units EVERY 12 HOURS SUBQ 01/17/18 21:00 02/16/18 08:59 Insulin Aspart (NovoLOG) BEFORE MEALS AND HS SUBQ 01/17/18 16:30 02/16/18 11:29 Lamotrigine (LaMICtal) 100 mg TWICE A DAY ORAL 01/17/18 18:00 02/16/18 08:59 Nitroglycerin (Ntg) 0.4 mg Q5M PRN SL Prn Chest Pain 01/17/18 13:30 02/16/18 01:29 Ondansetron HCl (Zofran) 4 mg Q6H PRN IVP Nausea & Vomiting 01/17/18 13:30 02/16/18 01:29 Polyethylene Glycol (Miralax) 17 gm DAILYPRN PRN ORAL Constipation 01/17/18 13:30 02/16/18 13:29 Quetiapine Fumarate (SEROquel) 50 mg TWICE A DAY ORAL 01/17/18 18:00 02/16/18 08:59 Sodium Chloride 1,000 ml @ 150 mls/hr Q6H40M IV 01/17/18 13:30 02/16/18 01:20 Temazepam (Restoril) 15 mg HSPRN PRN ORAL Insomnia 01/17/18 21:00 01/24/18 20:59 Vancomycin HCl (Vanco rx to dose) 1 ea DAILY PRN MISC . 01/17/18 13:45 02/16/18 13:44 Vancomycin HCl 1 gm/Dextrose 275 ml @ 183.3 mls/ hr Q12H IVPB 01/17/18 14:00 01/22/18 01:59 Assessment/Plan Status: stable Assessment/Plan Chiara dx mdd psychosis -haldol im -seroquel po he refused -Rosalinda Vasquez M.D. January 17, 2018 13:45
--- NOTE | 2018-01-17 14:16 | Consultation ---
Consult Note Consult Note v [id number] Jamal Mcghee MD January 17, 2018 14:16
--- NOTE | 2018-01-17 14:36 | Cardiology Report ---
APPROVED REPORT EKG Measurement Heart [id number] Normal sinus rhythm Abnormal ECG
[2018-01-17] MEDS: Vancomycin 1 GM in D5W 275 ML IVPB SCH (14:44)
--- NOTE | 2018-01-17 15:42 | GI Initial Consult Note ---
History of Present Illness General Date patient seen: January 17, 2018 Time patient seen: 16:47 Reason for Hospitalization: Fever Referring physician: FERNANDA Reason for Consultation: FTT Present Illness HPI Patient is a 47-year-old male brought in by EMS after increased fever and generalized weakness. Patient had gradual onset of symptoms. Patient had diminished oral intake. Patient prior history of COPD as well as Ely's chorea and paranoid schizophrenia. The patient was noted a temperature up to 101. History is markedly limited by patient's mental status. Patient is nonverbal at baseline per EMS GI consulted for diminished oral intake, FTT. ROS limited, hx of Betzy disease. Pt seen, awake NAD with no active s/sx of N/V/D with mild agitation. Labs reviewed show mild leukocytosis and transaminitis. No anemia. Unknown history of endoscopy / colonoscopies. Home Meds Reported Medications Magnesium Hydroxide (Milk of Magnesia) 400 Mg/5 Ml Oral.susp, 30 ML ORAL Q6HR PRN for Constipation, ML 01/16/18 [mylanta] No Conflict Check, 30 ML PO Q4HR PRN for To Patient Comfort 01/16/18 [benzotropics] No Conflict Check, 1 MG PO QID 01/16/18 Clonazepam (CLONAZEPAM) 1 Mg Tablet, 1 MG PO DAILY, TAB 01/16/18 Insulin Aspart (Novolog Flexpen) 100 Unit/1 Ml Insuln.pen 01/16/18 Magnesium Hydroxide* (MILK OF MAGNESIA*) 400 Mg/5 Ml Oral.susp, 30 ML ORAL DAILY , ML 01/16/18 Acetaminophen* (TYLENOL*) 120 Mg Supp.rect, 650 MG PO Q4H PRN for Mild Pain/ Temp > 100.5, SUPP 01/16/18 Amantadine Hcl* (SYMMETREL*) 100 Mg Capsule, 100 MG ORAL TWICE A DAY, CAP 01/16/18 Lamotrigine* (LAMICTAL*) 150 Mg Tablet, 100 MG ORAL TWICE A DAY, #60 TAB 0 Refills 01/16/18 Quetiapine Fumarate* (SEROQUEL*) 25 Mg Tablet, 50 MG ORAL TWICE A DAY, TAB 01/16/18 Discontinued Reported Medications [mylanta] No Conflict Check, 30 01/16/18 Clonazepam* (KLONOPIN*) 1 Mg Tablet, 1 MG ORAL Q6H, #15 TAB 0 Refills 01/16/18 Med list reviewed/reconciled: Yes Allergies: Coded Allergies: No Known Allergies (Unverified , 01/16/18) Patient History Limited by: medical condition History Provided By: Medical Record PMH Narrative Past Medical History: see triage record Reviewed Nursing Documentation: PMH: Agreed; PSxH: Agreed Review of Systems All Other Systems: limited Physical Exam Vital Signs Date Time Temp Pulse Resp B/P (MAP) Pulse Ox O2 Delivery O2 Flow Rate FiO2 01/16/18 14:38 101.0 106 16 163/84 96 Room Air 100.9 Sp02 EP Interpretation: reviewed, normal Labs Laboratory Tests Test 01/16/18 16:00 01/16/18 16:45 01/17/18 11:00 Urine Color Yellow Yellow Urine Appearance Clear Slightly cloudy Urine pH 5 (4.5-8.0) 5 (4.5-8.0) Urine Specific [place] 1.025 (1.005-1.035) 1.025 (1.005-1.035) Urine Protein 3+ (NEGATIVE) H 3+ (NEGATIVE) H Urine Glucose (UA) 2+ (NEGATIVE) H Negative (NEGATIVE) Urine Ketones 1+ (NEGATIVE) H 1+ (NEGATIVE) H Urine Occult Blood 5+ (NEGATIVE) H 5+ (NEGATIVE) H Urine Nitrite Negative (NEGATIVE) Negative (NEGATIVE) Urine Bilirubin Negative (NEGATIVE) 1+ (NEGATIVE) H Urine Urobilinogen 4 MG/DL (0.0-1.0) H 1 MG/DL (0.0-1.0) H Urine Leukocyte Esterase 1+ (NEGATIVE) H 2+ (NEGATIVE) H Urine RBC 5-10 /HPF (0 - 0) H 60-80 /HPF (0 - 0) H Urine WBC 2-4 /HPF (0 - 0) 5-10 /HPF (0 - 0) H Urine Squamous Epithelial Cells None /LPF (NONE/OCC) Occasional /LPF Urine Amorphous Sediment Few /LPF (NONE) H Few /LPF (NONE) H Urine Bacteria Few /HPF (NONE) Few /HPF (NONE) Lactic Acid Level 1.50 mmol/L (0.66-2.22) Urine Ictotest Negative Urine Random Total Protein 151 MG/DL (< 11.9) H Urine Random Sodium 20 mmol/L (20-110) Urine Creatinine 213.0 MG/DL (30.0-125.0) H General Appearance: well appearing, no apparent distress, alert, thin Head: normocephalic EENT: PERRL/EOMI, normal ENT inspection Neck: supple Respiratory: normal breath sounds, no respiratory distress Cardiovascular: normal rate Gastrointestinal: normal inspection, non tender, soft, normal bowel sounds, non -distended Rectal: deferred Genitourinary: deferred Psychiatric: normal inspection, judgement/insight normal, memory normal Skin: normal inspection, normal color, no rash, warm/dry, palpation normal, well hydrated Lymphatic: normal inspection, no adenopathy Current Medications Current Medications Medications (Trade) Dose Ordered Sig/Javi Route PRN Reason Start Time Stop Time Status Last Admin Dose Admin Acetaminophen (Tylenol) 650 mg Q4H PRN RECTAL Mild Pain/Temp > 100.5 01/17/18 14:00 02/16/18 13:59 Albuterol/ Ipratropium (Albuterol/ Ipratropium) 3 ml Q4H PRN HHN Shortness of Breath 01/17/18 13:30 01/22/18 13:29 Amantadine HCl (Symmetrel) 100 mg TWICE A DAY ORAL 01/17/18 18:00 02/16/18 08:59 Clonazepam (KlonoPIN) 1 mg DAILY ORAL 01/18/18 09:00 01/24/18 08:59 Dextrose (Dextrose 50%) 25 ml STAT PRN IV Hypoglycemia 01/17/18 14:30 02/16/18 14:29 Dextrose (Dextrose 50%) 50 ml STAT PRN IV Hypoglycemia 01/17/18 14:30 02/16/18 14:29 Haloperidol Lactate (Haldol) 5 mg Q6H PRN IM Agitation 01/17/18 14:30 02/16/18 14:29 Heparin Sodium (Porcine) (Heparin 5000 units/ml) 5,000 units EVERY 12 HOURS SUBQ 01/17/18 21:00 02/16/18 08:59 Insulin Aspart (NovoLOG) BEFORE MEALS AND HS SUBQ 01/17/18 16:30 02/16/18 11:29 Lamotrigine (LaMICtal) 100 mg TWICE A DAY ORAL 01/17/18 18:00 02/16/18 08:59 Nitroglycerin (Ntg) 0.4 mg Q5M PRN SL Prn Chest Pain 01/17/18 13:30 02/16/18 01:29 Ondansetron HCl (Zofran) 4 mg Q6H PRN IVP Nausea & Vomiting 01/17/18 13:30 02/16/18 01:29 Polyethylene Glycol (Miralax) 17 gm DAILYPRN PRN ORAL Constipation 01/17/18 13:30 02/16/18 13:29 Quetiapine Fumarate (SEROquel) 50 mg TWICE A DAY ORAL 01/17/18 18:00 02/16/18 08:59 Sodium Chloride 1,000 ml @ 150 mls/hr Q6H40M IV 01/17/18 13:30 02/16/18 01:20 01/17/18 14:35 Temazepam (Restoril) 15 mg HSPRN PRN ORAL Insomnia 01/17/18 21:00 01/24/18 20:59 Vancomycin HCl (Vanco rx to dose) 1 ea DAILY PRN MISC . 01/17/18 13:45 02/16/18 13:44 Vancomycin HCl 1 gm/Dextrose 275 ml @ 183.3 mls/ hr Q12H IVPB 01/17/18 14:00 01/22/18 01:59 01/17/18 14:44 GI: Plan Problems: (1) Protein-calorie malnutrition, severe (2) Sepsis (3) Failure to thrive (4) Schizophrenia (5) Ely chorea Plan FTT transaminitis on diet ST evaluation >> PEG if needed calorie count avoid statins hepatitis panel fu abdominal U/S fu labs, trend LFTs Discussed with Dr. Rodriguez. Thank you for this patient referral, we will follow. The patient was seen and examined at bedside and all new and available data was reviewed in the patients chart. I agree with the above findings, impression and plan. (Patient seen earlier today. Signature stamp does not reflect patient encounter time.). - MD Indira Shoemaker,[facility] January 17, 2018 15:42
[2018-01-17] MEDS: NovoLOG Insulin Flexpen SUBQ SCH ×2 (16:30→21:00)
[2018-01-17] MEDS ORDERED: Tubing IV Secondary IV ONE (17:37)
[2018-01-17] MEDS ORDERED: D5W 275ml ONE (17:37)
[2018-01-17] MEDS ORDERED: 1/2 NS 1000ml IV ONE (17:37)
[2018-01-17] MEDS: Amantadine 100mg cap ORAL SCH (18:00)
--- NOTE | 2018-01-17 19:45 | History and Physical Report ---
DATE OF ADMISSION: 01/16/2018 CONSULTANTS: 1. Annie Bryant M.D. 2. Sary Acuña M.D. 3. Jamal Mcghee M.D. 4. Rosalinda Chew M.D. 5. Joe Jarvis M.D. 6. Jabier Rodriguez M.D. CHIEF COMPLAINT: Failure to thrive, weakness, lethargy, and also agitation. BRIEF HISTORY: This is a 47-year-old male from [facility], presents to [place] ER last night with history of increased alternating lethargy and agitation, was very weak, not eating well. The patient came to [place], diagnosed with the above, also rhabdomyolysis, COPD, and Bradford's chorea, failure to thrive, and sepsis and admitted to medical floor for further treatment. Currently, confused in bed, not responding to questions. PAST MEDICAL HISTORY: COPD, Bradford's chorea, schizophrenia, failure to thrive, and protein malnutrition. PAST SURGICAL HISTORY: Unknown. MEDICATIONS: Klonopin, heparin, Restoril, Symmetrel, Lamictal, vancomycin, Tylenol, nitroglycerin, and Zofran. ALLERGIES: Denies. SOCIAL HISTORY: Unable to obtain secondary to the patient's condition. REVIEW OF SYSTEMS: Unavailable. PHYSICAL EXAMINATION: GENERAL: The patient is lethargic in bed, refusing to answer questions. VITAL SIGNS: Temperature is 97 degrees, pulse 89, respirations 20, and blood pressure 156/73. CARDIOVASCULAR: No murmur. LUNGS: Poor air exchange. ABDOMEN: Bowel sounds positive. Nontender. Nondistended. EXTREMITIES: No cyanosis, clubbing, or edema. NEUROLOGIC: The patient moves all extremities, some writhing movement, not following directions. LABORATORY AND DIAGNOSTIC DATA: Labs at this time show white count of 12.6, otherwise CBC is normal. BMP shows BUN 23 and glucose 183. Lactic acid 2.5. Alkaline phosphatase is 2.4. AST and ALT 345/141. Troponin 0.014. Urinalysis, 2+ leukocyte esterase. ASSESSMENT: 1. Urinary tract infection. 2. Sepsis. 3. Rhabdomyolysis. 4. Malnutrition. 5. Schizophrenia. 6. Diabetes. 7. Chronic obstructive pulmonary disease. 8. Betzy's chorea. 9. Failure to thrive. PLAN: 1. Continue previous medications. 2. Antibiotics per Infectious Disease. 3. OT, PT, and dietary evaluation. 4. Blood pressure and blood sugar control. 5. CBC and BMP in the morning. 6. Dr. Bryant, Dr. Acuña, Dr. Mcghee, Dr. Chew, Dr. Jarvis, Dr. Rodriguez, and Dr. Costa to consult. We will continue to follow this patient. Shaheed Vazquez D.O. DR: ANIKA JOB#: [id number] CC:
--- NOTE | 2018-01-17 20:02 | Cardiology Progress Note ---
Assessment/Plan Assessment/Plan The patient is seen and examined, full consult note is dictated. Objective Last 24 Hour Vital Signs Date Time Temp Pulse Resp B/P (MAP) Pulse Ox O2 Delivery O2 Flow Rate FiO2 01/17/18 16:00 97.6 71 20 128/71 96 97.6 01/17/18 13:30 97.8 83 20 106/61 95 97.8 01/17/18 12:10 97.3 79 20 156/73 95 97.3 01/17/18 12:00 81 01/17/18 12:00 97.3 79 20 156/73 95 97.3 01/17/18 08:00 97.7 86 20 123/57 95 97.7 01/17/18 08:00 93 01/17/18 07:19 97.9 01/17/18 06:49 100.8 01/17/18 04:00 88 01/17/18 04:00 100.6 84 22 121/52 96 Room Air 100.6 01/17/18 00:00 97.7 96 20 97/57 94 Room Air 97.7 01/17/18 00:00 108 01/16/18 21:10 108 01/16/18 20:04 103.3 107 24 124/108 96 Room Air 103.3 Intake and Output 01/16/18 01/17/18 19:00 07:00 Intake Total 1100 ml 725.0 ml Output Total 1000 ml Balance 1100 ml -275.0 ml IV Total 1100 ml 725.0 ml Output Urine Total 1000 ml # Voids 1 # Bowel Movements 1 Laboratory Tests Test 01/17/18 11:00 01/17/18 16:45 Urine Color Yellow Urine Appearance Slightly cloudy Urine pH 5 (4.5-8.0) Urine Specific [place] 1.025 (1.005-1.035) Urine Protein 3+ (NEGATIVE) H Urine Glucose (UA) Negative (NEGATIVE) Urine Ketones 1+ (NEGATIVE) H Urine Occult Blood 5+ (NEGATIVE) H Urine Nitrite Negative (NEGATIVE) Urine Bilirubin 1+ (NEGATIVE) H Urine Ictotest Negative Urine Urobilinogen 1 MG/DL (0.0-1.0) H Urine Leukocyte Esterase 2+ (NEGATIVE) H Urine RBC 60-80 /HPF (0 - 0) H Urine WBC 5-10 /HPF (0 - 0) H Urine Squamous Epithelial Cells Occasional /LPF Urine Amorphous Sediment Few /LPF (NONE) H Urine Bacteria Few /HPF (NONE) Urine Random Total Protein 151 MG/DL (< 11.9) H Urine Random Sodium 20 mmol/L (20-110) Urine Creatinine 213.0 MG/DL (30.0-125.0) H Hepatitis A IgM Antibody Pending Hepatitis B Surface Antigen Pending Hepatitis B Core IgM Antibody Pending Hepatitis C Antibody Pending Microbiology Date/Time Source Procedure Growth Status 01/16/18 15:20 Blood Blood Culture - Preliminary Resulted 01/16/18 15:15 Blood Blood Culture - Preliminary Resulted José Luis Costa MD January 17, 2018 20:02
--- NOTE | 2018-01-17 20:45 | Consultation ---
DATE OF CONSULTATION: 01/17/2018 INFECTIOUS DISEASE CONSULTATION CONSULTING PHYSICIAN: Jamal Mcghee M.D. REFERRING PHYSICIAN: Shaheed Root D.O. REASON FOR CONSULTATION: Evaluation of the patient for bacteremia, fever, leukocytosis, antibiotic management. HISTORY OF PRESENT ILLNESS: The patient is a 47-year-old male with multiple medical problems as listed below, who was brought to this hospital because of increasing weakness and fever. The patient was found to have positive blood culture for gram-positive cocci in pair and chain. The patient is unable to provide detailed information due to the patient's mental status. Infectious Disease consultation has been requested for further evaluation of the patient and antibiotic management. PAST MEDICAL HISTORY: 1. Divide disease. 2. Schizophrenia. 3. Diabetes. 4. COPD. 5. Failure to thrive. 6. Anxiety. 7. Anemia. ALLERGIES: No known drug allergies. MEDICATIONS: Cefepime and vancomycin. SOCIAL HISTORY: The patient lives in a skilled nursing. FAMILY HISTORY: Not available. REVIEW OF SYSTEMS: Unobtainable. PHYSICAL EXAMINATION: VITAL SIGNS: Temperature 97, blood pressure 136/73, pulse 86, respiratory rate 18. T-max 103.1. HEENT: Poor oral hygiene and dental condition. CHEST: Coarse breathing sounds. HEART: S1, S2. ABDOMEN: Soft. Nontender. EXTREMITIES: No cyanosis at this time. NEUROLOGIC: Awake and not following commands. SKIN: No rash. LABORATORY AND DIAGNOSTIC DATA: White blood cells 12, hemoglobin 14, platelets 181,000. UA unremarkable. BUN 23, creatinine 1. AST 345, ALT 141, alkaline phosphatase 80. Blood culture 2/2 is growing gram-positive cocci in chains. Chest x-ray, no acute process. ASSESSMENT: The patient is a 47-year-old male with: 1. Fever. 2. Leukocytosis. 3. Positive blood culture, gram-positive cocci (rule out endocarditis possibly due to poor oral hygiene). 4. Transaminitis, rule out hepatitis B/C. PLAN: 1. We will continue the patient on IV vancomycin. Hold IV cefepime. 2. Monitor CBC. 3. Monitor BMP. 4. Hepatitis panel. 5. Ultrasound of the liver. 6. A 2D echo. 7. Monitor chest x-ray. 8. Based on the patient's clinical course and labs, we will do further recommendations. Thank you, Dr. Shaheed Vazquez, for allowing me to participate in the care of this patient. I will follow this patient with you during this hospitalization. Jamal Mcghee M.D. DR: Isael JOB#: [id number] CC:
[2018-01-17] MEDS: Heparin 5000 units/ml inj SUBQ SCH (21:04)
[2018-01-18 00:02] VITALS: BP 109/59
--- NOTE | 2018-01-18 01:30 | Consultation ---
DATE OF CONSULTATION: 01/17/2018 CARDIOLOGY CONSULTATION CONSULTING PHYSICIAN: José Luis Costa M.D. REFERRING PHYSICIAN: Shaheed Vazquez D.O. REASON FOR CONSULTATION: Management of tachycardia. HISTORY OF PRESENT ILLNESS: The patient is a very unfortunate 47-year-old gentleman, who brought in by EMS after fever, generalized weakness and diminished oral intake. The patient has history of Betzy chorea and paranoid schizophrenia and is currently nonverbal and not capable of providing any history. At the time of arrival to the hospital, he was noted to have a temperature 101 degrees Fahrenheit. He was admitted to Medical/Surgical for further evaluation and management. Cardiology consultation was made at the request of Dr. Vazquez for evaluation and management of tachycardia. His vital signs at the time of arrival to the hospital was 163/84 mmHg and heart rate of 106. A 12-lead electrocardiogram done in the emergency department showed heart rate of 99, no acute ST and T-wave abnormalities. PAST MEDICAL HISTORY: 1. Schizophrenia. 2. Bryan chorea. 3. Chronic obstructive pulmonary disease. 4. Failure to thrive. PAST SURGICAL HISTORY: None. MEDICATIONS: List of medications at the nursing facility include acetaminophen 650 mg p.o. q.4 h. p.r.n. pain and temperature over 100.5 degrees Fahrenheit, amantadine, hydrochloride 100 mg p.o. twice daily, clonazepam 1 mg p.o. daily, insulin Aspart sliding scale, Lamictal 100 mg p.o. twice daily, magnesium hydroxide 30 mL p.o. q.6 h. p.r.n. constipation, Seroquel 50 mg p.o. twice daily, benztropine 1 mg p.o. q.i.d., and Mylanta 30 mL p.o. q.4 h. p.r.n. constipation. ALLERGIES: No known drug allergies. FAMILY HISTORY: No premature coronary artery disease or in the first-degree relatives according to the records. REVIEW OF SYSTEMS: Unable to obtain as the patient is nonverbal. PHYSICAL EXAMINATION: GENERAL: The patient is a very unfortunate 47-year-old gentleman, in no apparent respiratory distress. Appears to be lethargic, chronically ill, not verbally communicating. VITAL SIGNS: Blood pressure was 163/84, pulse of 106, respiration of 16, temperature 101.0 degrees Fahrenheit, and O2 saturation 96% on room air. HEENT: Atraumatic and normocephalic. Anicteric. Bitemporal wasting. There is dry mucosal membrane. Pupils are equal, round, and reactive to light and accommodation. Extraocular muscles intact. NECK: JVP less than 5 cm. No carotid bruit. Carotid upstrokes 2+ bilaterally. CARDIOVASCULAR: Normal S1 and S2. Regular rate and rhythm. Tachycardic. No murmurs, gallops, or rubs. PMI is at fourth intercostal space in the midclavicular line. LUNGS: Clear to auscultation bilaterally. ABDOMEN: Soft, nontender, and nondistended. No hepatosplenomegaly. Positive bowel sounds. EXTREMITIES: No evidence of edema, clubbing, or cyanosis. LABORATORY AND DIAGNOSTIC DATA: WBC is 12.6, hemoglobin 14.6, hematocrit of 43.7, and platelet count is 181. Sodium is 143, potassium is 3.7, chloride is 107, bicarbonate 27, BUN of 23, creatinine 1.0 and glucose is 183. Calcium is 9.2. Magnesium is 1.9. AST was 345 and ALT of 141. Total CK was 11,712. CK-MB was 79.9. Troponin I was 0.014. Chest x-ray shows no acute cardiopulmonary disease with normal cardiac silhouette. ASSESSMENT AND PLAN: The patient is a very unfortunate 47-year-old gentleman, who was seen in Cardiology consultation at the request of Dr. Vazquez. 1. Sinus tachycardia, likely secondary to severe hypovolemia, as the patient has acute rhabdomyolysis with severely elevated CK level. The patient is currently receiving IV hydration with bicarbonate drip for alkalinization of urine. Treatment of the sinus tachycardia is the treatment of underlying disorder. At this time, he does not require any AV chastity agents. 2. History of COPD. Chest x-ray shows normal cardiac silhouette with no acute cardiopulmonary disease. 3. History of paranoid schizophrenia. 4. History of Betzy chorea. 5. Prerenal azotemia with contraction alkalosis likely due to intravascular volume depletion. 6. Acute transaminitis. I would like to thank, Dr. Vazquez, for allowing me to participate in care of this patient. José Luis Costa M.D. DR: ALICIA JOB#: [id number] CC:
[2018-01-18] MEDS: Vancomycin 1 GM in D5W 275 ML IVPB SCH ×2 (02:00→14:00)
[2018-01-18 03:49] VITALS: BP 101/62
[2018-01-18] MEDS: NovoLOG Insulin Flexpen SUBQ SCH ×4 (06:30→21:23)
[2018-01-18 07:28] LABS: HEMATOCRIT 36.1 % (42.0-52.0); HEMOGLOBIN 12.7 G/DL (14.2-18.0); MEAN CORPUSCULAR VOLUME 87 FL (80-99); PLATELET COUNT 92 K/UL (150-450); RED BLOOD COUNT 4.14 M/UL (4.70-6.10); RED CELL DISTRIBUTION WIDTH 10.8 % (11.6-14.8); WHITE BLOOD COUNT 9.7 K/UL (4.8-10.8)
[2018-01-18 07:51] LABS: ALANINE AMINOTRANSFERASE 158 U/L (12-78); ALBUMIN 2.9 G/DL (3.4-5.0); ALBUMIN/GLOBULIN RATIO 0.8 (1.0-2.7); ALKALINE PHOSPHATASE 54 U/L (46-116); ANION GAP 8 mmol/L (5-15); ASPARTATE AMINO TRANSFERASE 271 U/L (15-37); BILIRUBIN,TOTAL 0.9 MG/DL (0.2-1.0); BLOOD UREA NITROGEN 21 mg/dL (7-18); CALCIUM 8.8 MG/DL (8.5-10.1); CARBON DIOXIDE 26 MMOL/L (21-32); CHLORIDE 108 MMOL/L (98-107); CREATININE 0.6 MG/DL (0.55-1.30); POTASSIUM 3.9 MMOL/L (3.5-5.1); SODIUM 142 MMOL/L (136-145)
[2018-01-18 08:00] VITALS: BP 100/64
[2018-01-18 08:10] LABS: PHOSPHORUS 1.5 MG/DL (2.5-4.9)
[2018-01-18] MEDS: Heparin 5000 units/ml inj SUBQ SCH ×2 (09:00→21:00)
[2018-01-18] MEDS: Amantadine 100mg cap ORAL SCH ×2 (10:05→17:18)
--- NOTE | 2018-01-18 11:41 | GI Progress Note ---
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 Rodriguez. Assessment/Plan patient passed ST evaluation, now on diet fu calorie count to see if nutritional needs are met >> PEG if necessary avoid statins hepatitis panel fu abdominal U/S fu labs, trend LFTs The patient was seen and examined at bedside and all new and available data was reviewed in the patients chart. I agree with the above findings, impression and plan. (Patient seen earlier today. Signature stamp does not reflect patient encounter time.). - Jabier Rodriguez MD Subjective Subjective limited Objective Last 24 Hour Vital Signs Date Time Temp Pulse Resp B/P (MAP) Pulse Ox O2 Delivery O2 Flow Rate FiO2 01/18/18 08:05 92 20 Room Air 01/18/18 08:00 97.0 78 16 100/64 97 97.0 01/18/18 03:49 98.2 71 17 101/62 97 98.2 01/18/18 00:02 98.4 76 18 109/59 97 98.4 01/17/18 20:00 98.6 81 19 134/66 100 98.6 01/17/18 16:00 97.6 71 20 128/71 96 97.6 01/17/18 13:30 97.8 83 20 106/61 95 97.8 01/17/18 12:10 97.3 79 20 156/73 95 97.3 01/17/18 12:00 81 01/17/18 12:00 97.3 79 20 156/73 95 97.3 Intake and Output 01/17/18 01/18/18 19:00 07:00 Intake Total 1135.0 ml 1650 ml Output Total 100 ml 400 ml Balance 1035.0 ml 1250 ml Intake Oral 0 ml IV Total 1135.0 ml 1650 ml Output Urine Total 100 ml 400 ml # Voids 1 Laboratory Tests Test 01/17/18 16:45 01/18/18 06:10 Hepatitis A IgM Antibody Pending Hepatitis B Surface Antigen Pending Hepatitis B Core IgM Antibody Pending Hepatitis C Antibody Pending White Blood Count 9.7 K/UL (4.8-10.8) Red Blood Count 4.14 M/UL (4.70-6.10) L Hemoglobin 12.7 G/DL (14.2-18.0) L Hematocrit 36.1 % (42.0-52.0) L Mean Corpuscular Volume 87 FL (80-99) Mean Corpuscular Hemoglobin 30.7 PG (27.0-31.0) Mean Corpuscular Hemoglobin Concent 35.1 G/DL (32.0-36.0) Red Cell Distribution Width 10.8 % (11.6-14.8) L Platelet Count 92 K/UL (150-450) L Mean Platelet Volume 9.2 FL (6.5-10.1) Neutrophils (%) (Auto) % (45.0-75.0) Lymphocytes (%) (Auto) % (20.0-45.0) Monocytes (%) (Auto) % (1.0-10.0) Eosinophils (%) (Auto) % (0.0-3.0) Basophils (%) (Auto) % (0.0-2.0) Differential Total Cells Counted 100 Neutrophils % (Manual) 84 % (45-75) H Lymphocytes % (Manual) 3 % (20-45) L Monocytes % (Manual) 3 % (1-10) Eosinophils % (Manual) 0 % (0-3) Basophils % (Manual) 0 % (0-2) Band Neutrophils 10 % (0-8) H Platelet Estimate Decreased L Platelet Morphology Normal Red Blood Cell Morphology Normal Sodium Level 142 MMOL/L (136-145) Potassium Level 3.9 MMOL/L (3.5-5.1) Chloride Level 108 MMOL/L (98-107) H Carbon Dioxide Level 26 MMOL/L (21-32) Anion Gap 8 mmol/L (5-15) Blood Urea Nitrogen 21 mg/dL (7-18) H Creatinine 0.6 MG/DL (0.55-1.30) Estimat Glomerular Filtration Rate > 60 mL/min (>60) Glucose Level 86 MG/DL (74-106) Calcium Level 8.8 MG/DL (8.5-10.1) Phosphorus Level 1.5 MG/DL (2.5-4.9) L Magnesium Level 2.0 MG/DL (1.8-2.4) Total Bilirubin 0.9 MG/DL (0.2-1.0) Aspartate Amino Transf (AST/SGOT) 271 U/L (15-37) H Alanine Aminotransferase (ALT/SGPT) 158 U/L (12-78) H Alkaline Phosphatase 54 U/L (46-116) Total Protein 6.6 G/DL (6.4-8.2) Albumin 2.9 G/DL (3.4-5.0) L Globulin 3.7 g/dL Albumin/Globulin Ratio 0.8 (1.0-2.7) L Height (Feet): 5 Height (Inches): 7.00 Weight (Pounds): 132 General Appearance: WD/WN, no apparent distress, alert Cardiovascular: normal rate Respiratory/Chest: normal breath sounds, no respiratory distress Abdominal Exam: normal bowel sounds, non tender, soft Extremities: non-tender Nicol Jacobson NP January 18, 2018 11:41
[2018-01-18 12:00] VITALS: BP 100/65
--- NOTE | 2018-01-18 14:28 | General Progress Note ---
Assessment/Plan Problem List: (1) Diabetes ICD Codes: E11.9 - Type 2 diabetes mellitus without complications SNOMED: 27429522 (2) Rhabdomyolysis ICD Codes: M62.82 - Rhabdomyolysis SNOMED: 125570067 (3) COPD (chronic obstructive pulmonary disease) ICD Codes: J44.9 - Chronic obstructive pulmonary disease, unspecified SNOMED: 10942377 (4) Betzy chorea ICD Codes: G10 - Cidra's disease SNOMED: 83971096 (5) Sepsis ICD Codes: A41.9 - Sepsis, unspecified organism SNOMED: 15478584 (6) Failure to thrive SNOMED: 47686649 (7) Schizophrenia ICD Codes: F20.9 - Schizophrenia, unspecified SNOMED: 20088812 (8) Protein-calorie malnutrition, severe ICD Codes: E43 - Unspecified severe protein-calorie malnutrition SNOMED: 821897631 Status: unchanged Assessment/Plan otpt diet abx heme eval cbc bmp am Subjective Constitutional: Reports: weakness Allergies: Coded Allergies: No Known Allergies (Unverified , 01/16/18) Subjective confused in bed Objective Last 24 Hour Vital Signs Date Time Temp Pulse Resp B/P (MAP) Pulse Ox O2 Delivery O2 Flow Rate FiO2 01/18/18 12:00 97.5 74 18 100/65 96 97.5 01/18/18 08:05 92 20 Room Air 01/18/18 08:00 97.0 78 16 100/64 97 97.0 01/18/18 03:49 98.2 71 17 101/62 97 98.2 01/18/18 00:02 98.4 76 18 109/59 97 98.4 01/17/18 20:00 98.6 81 19 134/66 100 98.6 01/17/18 16:00 97.6 71 20 128/71 96 97.6 Intake and Output 01/17/18 01/18/18 19:00 07:00 Intake Total 1135.0 ml 1650 ml Output Total 100 ml 400 ml Balance 1035.0 ml 1250 ml Intake Oral 0 ml IV Total 1135.0 ml 1650 ml Output Urine Total 100 ml 400 ml # Voids 1 Laboratory Tests 01/17/18 16:45: Hepatitis A IgM Antibody [Pending], Hepatitis B Surface Antigen [Pending], Hepatitis B Core IgM Antibody [Pending], Hepatitis C Antibody [Pending] 01/18/18 06:10: White Blood Count 9.7, Red Blood Count 4.14L, Hemoglobin 12.7L, Hematocrit 36.1L , Mean Corpuscular Volume 87, Mean Corpuscular Hemoglobin 30.7, Mean Corpuscular Hemoglobin Concent 35.1, Red Cell Distribution Width 10.8L, Platelet Count 92L, Mean Platelet Volume 9.2, Neutrophils (%) (Auto) , Lymphocytes (%) (Auto) , Monocytes (%) (Auto) , Eosinophils (%) (Auto) , Basophils (%) (Auto) , Differential Total Cells Counted 100, Neutrophils % ( Manual) 84H, Lymphocytes % (Manual) 3L, Monocytes % (Manual) 3, Eosinophils % ( Manual) 0, Basophils % (Manual) 0, Band Neutrophils 10H, Platelet Estimate DecreasedL, Platelet Morphology Normal, Red Blood Cell Morphology Normal, Sodium Level 142, Potassium Level 3.9, Chloride Level 108H, Carbon Dioxide Level 26, Anion Gap 8, Blood Urea Nitrogen 21H, Creatinine 0.6, Estimat Glomerular Filtration Rate > 60, Glucose Level 86, Calcium Level 8.8, Phosphorus Level 1.5L, Magnesium Level 2.0, Total Bilirubin 0.9, Aspartate Amino Transf (AST/SGOT) 271H, Alanine Aminotransferase (ALT/SGPT) 158H, Alkaline Phosphatase 54, Total Protein 6.6, Albumin 2.9L, Globulin 3.7, Albumin/ Globulin Ratio 0.8L 01/18/18 14:15: Vancomycin Level Trough [Pending] Height (Feet): 5 Height (Inches): 7.00 Weight (Pounds): 132 General Appearance: lethargic, confused EENT: normal ENT inspection Neck: normal alignment Cardiovascular: normal peripheral pulses, normal rate, regular rhythm Respiratory/Chest: chest wall non-tender, lungs clear, normal breath sounds Abdomen: normal bowel sounds, soft Extremities: normal inspection Edema: no edema noted Arm (L), no edema noted Arm (R), no edema noted Leg (L), no edema noted Leg (R), no edema noted Pedal (L), no edema noted Pedal (R), no edema noted Generalized Neurologic: motor weakness Skin: normal pigmentation, warm/dry Shaheed Vazquez ChiKeith DO January 18, 2018 14:28
[2018-01-18] MEDS: Haloperidol 5mg/ml Inj IM PRN (15:16)
--- NOTE | 2018-01-18 15:18 | Pulmonology Progress Note ---
Assessment/Plan Problems: (1) Sepsis (2) COPD (chronic obstructive pulmonary disease) (3) Betzy chorea (4) Schizophrenia (5) Protein-calorie malnutrition, severe (6) Failure to thrive Assessment/Plan continue abx check cultures titrate fio2 to sat or 92% f/u with social workers effort to locate family Subjective ROS Limited/Unobtainable: No Constitutional: Reports: no symptoms HEENT: Repors: no symptoms Allergies: Coded Allergies: No Known Allergies (Unverified , 01/16/18) Objective Last 24 Hour Vital Signs Date Time Temp Pulse Resp B/P (MAP) Pulse Ox O2 Delivery O2 Flow Rate FiO2 01/18/18 12:00 97.5 74 18 100/65 96 97.5 01/18/18 08:05 92 20 Room Air 01/18/18 08:00 97.0 78 16 100/64 97 97.0 01/18/18 03:49 98.2 71 17 101/62 97 98.2 01/18/18 00:02 98.4 76 18 109/59 97 98.4 01/17/18 20:00 98.6 81 19 134/66 100 98.6 01/17/18 16:00 97.6 71 20 128/71 96 97.6 Intake and Output 01/17/18 01/18/18 19:00 07:00 Intake Total 1135.0 ml 1650 ml Output Total 100 ml 400 ml Balance 1035.0 ml 1250 ml Intake Oral 0 ml IV Total 1135.0 ml 1650 ml Output Urine Total 100 ml 400 ml # Voids 1 General Appearance: cachetic HEENT: normocephalic, atraumatic Respiratory/Chest: chest wall non-tender, lungs clear Cardiovascular: normal peripheral pulses, normal rate Abdomen: normal bowel sounds, no organomegaly Extremities: no cyanosis Microbiology Date/Time Source Procedure Growth Status 01/16/18 15:20 Blood Blood Culture - Preliminary Streptococcus Species Resulted 01/16/18 15:15 Blood Blood Culture - Preliminary Streptococcus Species Resulted 01/16/18 16:45 Nasal Nares MRSA Culture - Final Staphylococcus Aureus - Mrsa Complete 01/17/18 05:00 Back Gram Stain - Final Resulted 01/17/18 05:00 Wound Culture - Preliminary Staphylococcus Aureus Resulted 01/16/18 16:30 Rectum VRE Culture - Final NO VANCOMYCIN RESISTANT ENTEROCOCCUS ... Complete Laboratory Tests 01/17/18 16:45: Hepatitis A IgM Antibody [Pending], Hepatitis B Surface Antigen [Pending], Hepatitis B Core IgM Antibody [Pending], Hepatitis C Antibody [Pending] 01/18/18 06:10: White Blood Count 9.7, Red Blood Count 4.14L, Hemoglobin 12.7L, Hematocrit 36.1L , Mean Corpuscular Volume 87, Mean Corpuscular Hemoglobin 30.7, Mean Corpuscular Hemoglobin Concent 35.1, Red Cell Distribution Width 10.8L, Platelet Count 92L, Mean Platelet Volume 9.2, Neutrophils (%) (Auto) , Lymphocytes (%) (Auto) , Monocytes (%) (Auto) , Eosinophils (%) (Auto) , Basophils (%) (Auto) , Differential Total Cells Counted 100, Neutrophils % ( Manual) 84H, Lymphocytes % (Manual) 3L, Monocytes % (Manual) 3, Eosinophils % ( Manual) 0, Basophils % (Manual) 0, Band Neutrophils 10H, Platelet Estimate DecreasedL, Platelet Morphology Normal, Red Blood Cell Morphology Normal, Sodium Level 142, Potassium Level 3.9, Chloride Level 108H, Carbon Dioxide Level 26, Anion Gap 8, Blood Urea Nitrogen 21H, Creatinine 0.6, Estimat Glomerular Filtration Rate > 60, Glucose Level 86, Calcium Level 8.8, Phosphorus Level 1.5L, Magnesium Level 2.0, Total Bilirubin 0.9, Aspartate Amino Transf (AST/SGOT) 271H, Alanine Aminotransferase (ALT/SGPT) 158H, Alkaline Phosphatase 54, Total Protein 6.6, Albumin 2.9L, Globulin 3.7, Albumin/ Globulin Ratio 0.8L 01/18/18 14:15: Vancomycin Level Trough < 2.0L Current Medications Medications (Trade) Dose Ordered Sig/Javi Route PRN Reason Start Time Stop Time Status Last Admin Dose Admin Acetaminophen (Tylenol) 650 mg Q4H PRN RECTAL Mild Pain/Temp > 100.5 01/17/18 14:00 02/16/18 13:59 Albuterol/ Ipratropium (Albuterol/ Ipratropium) 3 ml Q4H PRN HHN Shortness of Breath 01/17/18 13:30 01/22/18 13:29 Amantadine HCl (Symmetrel) 100 mg TWICE A DAY ORAL 01/17/18 18:00 02/16/18 08:59 01/18/18 10:05 Clonazepam (KlonoPIN) 1 mg DAILY ORAL 01/18/18 09:00 01/24/18 08:59 01/18/18 10:06 Dextrose (Dextrose 50%) 25 ml STAT PRN IV Hypoglycemia 01/17/18 14:30 02/16/18 14:29 Dextrose (Dextrose 50%) 50 ml STAT PRN IV Hypoglycemia 01/17/18 14:30 02/16/18 14:29 Haloperidol Lactate (Haldol) 5 mg Q6H PRN IM Agitation 01/17/18 14:30 02/16/18 14:29 Heparin Sodium (Porcine) (Heparin 5000 units/ml) 5,000 units EVERY 12 HOURS SUBQ 01/17/18 21:00 02/16/18 08:59 01/17/18 21:04 Insulin Aspart (NovoLOG) BEFORE MEALS AND HS SUBQ 01/17/18 16:30 02/16/18 11:29 Lamotrigine (LaMICtal) 100 mg TWICE A DAY ORAL 01/17/18 18:00 02/16/18 08:59 01/18/18 10:05 Nitroglycerin (Ntg) 0.4 mg Q5M PRN SL Prn Chest Pain 01/17/18 13:30 02/16/18 01:29 Ondansetron HCl (Zofran) 4 mg Q6H PRN IVP Nausea & Vomiting 01/17/18 13:30 02/16/18 01:29 Polyethylene Glycol (Miralax) 17 gm DAILYPRN PRN ORAL Constipation 01/17/18 13:30 02/16/18 13:29 Quetiapine Fumarate (SEROquel) 50 mg TWICE A DAY ORAL 01/17/18 18:00 02/16/18 08:59 01/18/18 10:05 Sodium Chloride 1,000 ml @ 150 mls/hr Q6H40M IV 01/17/18 13:30 02/16/18 01:20 01/18/18 10:05 Temazepam (Restoril) 15 mg HSPRN PRN ORAL Insomnia 01/17/18 21:00 01/24/18 20:59 Vancomycin HCl (Vanco rx to dose) 1 ea DAILY PRN MISC . 01/17/18 13:45 6/14/18 13:44 Vancomycin HCl/ Dextrose 250 ml @ 166.667 mls/hr Q8HR@0000,0800,1600 IVPB 01/18/18 16:00 01/23/18 15:59 Annie Bryant MD January 18, 2018 15:17
[2018-01-18 16:00] VITALS: BP 110/70
--- NOTE | 2018-01-18 16:03 | General Progress Note ---
Subjective Date patient seen: January 18, 2018 Neurologic/Psychiatric: Reports: anxiety, depressed, emotional problems Allergies: Coded Allergies: No Known Allergies (Unverified , 01/16/18) Objective Last 24 Hour Vital Signs Date Time Temp Pulse Resp B/P (MAP) Pulse Ox O2 Delivery O2 Flow Rate FiO2 01/18/18 12:00 97.5 74 18 100/65 96 97.5 01/18/18 08:05 92 20 Room Air 01/18/18 08:00 97.0 78 16 100/64 97 97.0 01/18/18 03:49 98.2 71 17 101/62 97 98.2 01/18/18 00:02 98.4 76 18 109/59 97 98.4 01/17/18 20:00 98.6 81 19 134/66 100 98.6 Intake and Output 01/17/18 01/18/18 19:00 07:00 Intake Total 1135.0 ml 1650 ml Output Total 100 ml 400 ml Balance 1035.0 ml 1250 ml Intake Oral 0 ml IV Total 1135.0 ml 1650 ml Output Urine Total 100 ml 400 ml # Voids 1 Laboratory Tests 01/17/18 16:45: Hepatitis A IgM Antibody [Pending], Hepatitis B Surface Antigen [Pending], Hepatitis B Core IgM Antibody [Pending], Hepatitis C Antibody [Pending] 01/18/18 06:10: White Blood Count 9.7, Red Blood Count 4.14L, Hemoglobin 12.7L, Hematocrit 36.1L , Mean Corpuscular Volume 87, Mean Corpuscular Hemoglobin 30.7, Mean Corpuscular Hemoglobin Concent 35.1, Red Cell Distribution Width 10.8L, Platelet Count 92L, Mean Platelet Volume 9.2, Neutrophils (%) (Auto) , Lymphocytes (%) (Auto) , Monocytes (%) (Auto) , Eosinophils (%) (Auto) , Basophils (%) (Auto) , Differential Total Cells Counted 100, Neutrophils % ( Manual) 84H, Lymphocytes % (Manual) 3L, Monocytes % (Manual) 3, Eosinophils % ( Manual) 0, Basophils % (Manual) 0, Band Neutrophils 10H, Platelet Estimate DecreasedL, Platelet Morphology Normal, Red Blood Cell Morphology Normal, Sodium Level 142, Potassium Level 3.9, Chloride Level 108H, Carbon Dioxide Level 26, Anion Gap 8, Blood Urea Nitrogen 21H, Creatinine 0.6, Estimat Glomerular Filtration Rate > 60, Glucose Level 86, Calcium Level 8.8, Phosphorus Level 1.5L, Magnesium Level 2.0, Total Bilirubin 0.9, Aspartate Amino Transf (AST/SGOT) 271H, Alanine Aminotransferase (ALT/SGPT) 158H, Alkaline Phosphatase 54, Total Protein 6.6, Albumin 2.9L, Globulin 3.7, Albumin/ Globulin Ratio 0.8L, HIV (1&2) Antibody Rapid [Pending] 01/18/18 14:15: Vancomycin Level Trough < 2.0L Height (Feet): 5 Height (Inches): 7.00 Weight (Pounds): 132 General Appearance: WD/WN, no apparent distress, alert, confused, agitated Rosalinda Chew M.D. January 18, 2018 16:03
[2018-01-18] MEDS: Vancomycin 1250mg/D5W 250ml IVPB SCH ×2 (16:10→23:13)
--- NOTE | 2018-01-18 16:30 | Diagnostic Imaging Report ---
Indication: Abdominal pain, abnormal liver function tests, abnormal renal function tests Technique: Schroeder-scale and duplex images of the upper abdomen were obtained. Grayscale and duplex images of the kidneys, retroperitoneum, and bladder Comparison: none Findings: Gallbladder demonstrates sludge. No definite stones, wall thickening, nor pericholecystic fluid . Sonographic Biggs's sign could not be assessed Common bile duct measures 5 mm in diameter. No intrahepatic biliary ductal dilatation. Liver demonstrates normal echogenicity, no focal abnormality. Note, however, that the left lobe could not be well demonstrated, as liver is well above the costal margin Portal vein and hepatic veins are patent. Pancreas is unremarkable. The spleen is borderline enlarged, measuring 14.3 cm long axis dimension Left kidney measures 12 cm in length. Right kidney measures 12 cm length. Both kidneys demonstrate normal echogenicity. There is no hydronephrosis. A small amount of perinephric fluid is seen on the left. Echogenic focus in the left renal lower pole parenchyma could represent a small calyceal calculus versus artifact . The bladder wall is somewhat thickened. The calculated bladder volume is 127 mL, despite the presence of a Mckeon catheter within the bladder lumen.. Non-aneurysmal abdominal aorta . Impression: Gallbladder sludge. No definite stones. Negative for dilated ducts Borderline splenomegaly Somewhat limited exam, with nonvisualization of portions of the left hepatic lobe 120 mL of retained urine despite apparent adequate position of Mckeon catheter. Patient's nurse is been notified of this Equivocal bladder wall thickening, probably an artifact of under distention but cystitis also a possibility Possible small left renal calyceal calculus, versus artifact
--- NOTE | 2018-01-18 18:36 | Infectious Diseases Prog Note ---
Assessment/Plan Assessment/Plan ASSESSMENT: The patient is a 47-year-old male with: Fever. Leukocytosis. Bacteremia Strp (rule out endocarditis , pt has poor oral hygiene). Transaminitis, rule out hepatitis B/C US : Gallbladder sludge. No definite stones. Negative for dilated ducts, Borderline splenomegaly Chest x-ray, no acute process. [place] disease. Schizophrenia. Diabetes. COPD. Failure to thrive. Anxiety. Anemia. PLAN: continue the patient on IV vancomycin d# 2 Monitor CBC. Monitor BMP. Hepatitis panel. 2D echo. Monitor chest x-ray. Subjective Allergies: Coded Allergies: No Known Allergies (Unverified , 01/16/18) Subjective Afebrile Objective Vital Signs Last 24 Hour Vital Signs Date Time Temp Pulse Resp B/P (MAP) Pulse Ox O2 Delivery O2 Flow Rate FiO2 01/18/18 16:00 97.8 70 19 110/70 98 97.8 01/18/18 12:00 97.5 74 18 100/65 96 97.5 01/18/18 08:05 92 20 Room Air 01/18/18 08:00 97.0 78 16 100/64 97 97.0 01/18/18 03:49 98.2 71 17 101/62 97 98.2 01/18/18 00:02 98.4 76 18 109/59 97 98.4 01/17/18 20:00 98.6 81 19 134/66 100 98.6 Height (Feet): 5 Height (Inches): 7.00 Weight (Pounds): 132 Respiratory/Chest: no accessory muscle use Cardiovascular: no gallop/murmur Abdomen: no scars Microbiology Date/Time Source Procedure Growth Status 01/16/18 15:20 Blood Blood Culture - Preliminary Streptococcus Species Resulted 01/16/18 15:15 Blood Blood Culture - Preliminary Streptococcus Species Resulted 01/16/18 16:45 Nasal Nares MRSA Culture - Final Staphylococcus Aureus - Mrsa Complete 01/17/18 05:00 Back Gram Stain - Final Resulted 01/17/18 05:00 Wound Culture - Preliminary Staphylococcus Aureus Resulted 01/16/18 16:30 Rectum VRE Culture - Final NO VANCOMYCIN RESISTANT ENTEROCOCCUS ... Complete Laboratory Tests Test 01/18/18 06:10 01/18/18 14:15 White Blood Count 9.7 K/UL (4.8-10.8) Red Blood Count 4.14 M/UL (4.70-6.10) L Hemoglobin 12.7 G/DL (14.2-18.0) L Hematocrit 36.1 % (42.0-52.0) L Mean Corpuscular Volume 87 FL (80-99) Mean Corpuscular Hemoglobin 30.7 PG (27.0-31.0) Mean Corpuscular Hemoglobin Concent 35.1 G/DL (32.0-36.0) Red Cell Distribution Width 10.8 % (11.6-14.8) L Platelet Count 92 K/UL (150-450) L Mean Platelet Volume 9.2 FL (6.5-10.1) Neutrophils (%) (Auto) % (45.0-75.0) Lymphocytes (%) (Auto) % (20.0-45.0) Monocytes (%) (Auto) % (1.0-10.0) Eosinophils (%) (Auto) % (0.0-3.0) Basophils (%) (Auto) % (0.0-2.0) Differential Total Cells Counted 100 Neutrophils % (Manual) 84 % (45-75) H Lymphocytes % (Manual) 3 % (20-45) L Monocytes % (Manual) 3 % (1-10) Eosinophils % (Manual) 0 % (0-3) Basophils % (Manual) 0 % (0-2) Band Neutrophils 10 % (0-8) H Platelet Estimate Decreased L Platelet Morphology Normal Red Blood Cell Morphology Normal Sodium Level 142 MMOL/L (136-145) Potassium Level 3.9 MMOL/L (3.5-5.1) Chloride Level 108 MMOL/L (98-107) H Carbon Dioxide Level 26 MMOL/L (21-32) Anion Gap 8 mmol/L (5-15) Blood Urea Nitrogen 21 mg/dL (7-18) H Creatinine 0.6 MG/DL (0.55-1.30) Estimat Glomerular Filtration Rate > 60 mL/min (>60) Glucose Level 86 MG/DL (74-106) Calcium Level 8.8 MG/DL (8.5-10.1) Phosphorus Level 1.5 MG/DL (2.5-4.9) L Magnesium Level 2.0 MG/DL (1.8-2.4) Total Bilirubin 0.9 MG/DL (0.2-1.0) Aspartate Amino Transf (AST/SGOT) 271 U/L (15-37) H Alanine Aminotransferase (ALT/SGPT) 158 U/L (12-78) H Alkaline Phosphatase 54 U/L (46-116) Total Protein 6.6 G/DL (6.4-8.2) Albumin 2.9 G/DL (3.4-5.0) L Globulin 3.7 g/dL Albumin/Globulin Ratio 0.8 (1.0-2.7) L HIV (1&2) Antibody Rapid Negative (NEGATIVE) Vancomycin Level Trough < 2.0 ug/mL (5.0-12.0) L Current Medications Medications (Trade) Dose Ordered Sig/Javi Route PRN Reason Start Time Stop Time Status Last Admin Dose Admin Acetaminophen (Tylenol) 650 mg Q4H PRN RECTAL Mild Pain/Temp > 100.5 01/17/18 14:00 02/16/18 13:59 Albuterol/ Ipratropium (Albuterol/ Ipratropium) 3 ml Q4H PRN HHN Shortness of Breath 01/17/18 13:30 01/22/18 13:29 Amantadine HCl (Symmetrel) 100 mg TWICE A DAY ORAL 01/17/18 18:00 02/16/18 08:59 01/18/18 17:18 Clonazepam (KlonoPIN) 1 mg DAILY ORAL 01/18/18 09:00 01/24/18 08:59 01/18/18 10:06 Dextrose (Dextrose 50%) 25 ml STAT PRN IV Hypoglycemia 01/17/18 14:30 02/16/18 14:29 Dextrose (Dextrose 50%) 50 ml STAT PRN IV Hypoglycemia 01/17/18 14:30 02/16/18 14:29 Haloperidol Lactate (Haldol) 5 mg Q6H PRN IM Agitation 01/17/18 14:30 02/16/18 14:29 Heparin Sodium (Porcine) (Heparin 5000 units/ml) 5,000 units EVERY 12 HOURS SUBQ 01/17/18 21:00 02/16/18 08:59 01/17/18 21:04 Insulin Aspart (NovoLOG) BEFORE MEALS AND HS SUBQ 01/17/18 16:30 02/16/18 11:29 01/18/18 17:19 Lamotrigine (LaMICtal) 100 mg TWICE A DAY ORAL 01/17/18 18:00 02/16/18 08:59 01/18/18 17:18 Nitroglycerin (Ntg) 0.4 mg Q5M PRN SL Prn Chest Pain 01/17/18 13:30 02/16/18 01:29 Ondansetron HCl (Zofran) 4 mg Q6H PRN IVP Nausea & Vomiting 01/17/18 13:30 02/16/18 01:29 Polyethylene Glycol (Miralax) 17 gm DAILYPRN PRN ORAL Constipation 01/17/18 13:30 02/16/18 13:29 Quetiapine Fumarate (SEROquel) 50 mg TWICE A DAY ORAL 01/17/18 18:00 02/16/18 08:59 01/18/18 17:18 Sodium Chloride 1,000 ml @ 150 mls/hr Q6H40M IV 01/17/18 13:30 02/16/18 01:20 01/18/18 10:05 Temazepam (Restoril) 15 mg HSPRN PRN ORAL Insomnia 01/17/18 21:00 01/24/18 20:59 Vancomycin HCl (Vanco rx to dose) 1 ea DAILY PRN MISC . 01/17/18 13:45 02/16/18 13:44 Vancomycin HCl/ Dextrose 250 ml @ 166.667 mls/hr Q8HR@0000,0800,1600 IVPB 01/18/18 16:00 01/23/18 15:59 01/18/18 16:10 Jamal Mcghee MD January 18, 2018 18:36
[2018-01-18 20:00] VITALS: BP 99/73
--- NOTE | 2018-01-18 20:11 | Consultation ---
Consult Note Consult Note NEUROLOGY CONSULTATION: Full note dictated #[id number] 47 y/o, CM of ?H who has a PH of HD, a psychiatric illness labelled schizophrenia and major depression, and COPD. He was hospitalized for an altered MS which consisted of episodic lethargy and agitation, a fever and inability to eat. He was brought into the [facility] ER and admitted for a UTI, Sepsis, rhabdomyolysis, malnutrition and failure to thrive. ON EXAM: Oriented to self only. Unable to cooperate for further MS tests. Severe dysarthria. Constant choreoathetotic movements. IMPRESSION: Underlying HD. Superimposed encephalopathy due to acute infection, dehydration. REC: Continue present Rx. Tetrabenazine in future if hepatic function improves. Pedro Jarvis M.D., M.S.P.H. PEDRO JARVIS January 18, 2018 20:11
--- NOTE | 2018-01-18 20:20 | Nephrology Progress Note ---
Assessment/Plan Assessment 1. Acute rhabdomyolysis based on the elevated CK-MB and urine studies. 2. Possible diabetes with elevated blood sugar and ketone and glucose in the urine. 3. Proteinuria with 3+ and need to rule out causes of nephrotic range proteinuria. 4. Fever. 5. Altered mental status. Plan plan to continue ivf replace electrolyte as need it oral feeding check pre-albumin Subjective Constitutional: Reports: no symptoms HEENT: Reports: no symptoms Genitourinary: Reports: no symptoms Neurologic/Psychiatric: Reports: no symptoms Subjective more awake today his nurse is on his bedside Objective Objective Last 24 Hour Vital Signs Date Time Temp Pulse Resp B/P (MAP) Pulse Ox O2 Delivery O2 Flow Rate FiO2 01/18/18 20:00 97.7 77 18 99/73 93 97.7 01/18/18 16:00 97.8 70 19 110/70 98 97.8 01/18/18 12:00 97.5 74 18 100/65 96 97.5 01/18/18 08:05 92 20 Room Air 01/18/18 08:00 97.0 78 16 100/64 97 97.0 01/18/18 03:49 98.2 71 17 101/62 97 98.2 01/18/18 00:02 98.4 76 18 109/59 97 98.4 Intake and Output 01/17/18 01/18/18 19:00 07:00 Intake Total 1135.0 ml 1650 ml Output Total 100 ml 400 ml Balance 1035.0 ml 1250 ml Intake Oral 0 ml IV Total 1135.0 ml 1650 ml Output Urine Total 100 ml 400 ml # Voids 1 Laboratory Tests 01/18/18 06:10: White Blood Count 9.7, Red Blood Count 4.14L, Hemoglobin 12.7L, Hematocrit 36.1L , Mean Corpuscular Volume 87, Mean Corpuscular Hemoglobin 30.7, Mean Corpuscular Hemoglobin Concent 35.1, Red Cell Distribution Width 10.8L, Platelet Count 92L, Mean Platelet Volume 9.2, Neutrophils (%) (Auto) , Lymphocytes (%) (Auto) , Monocytes (%) (Auto) , Eosinophils (%) (Auto) , Basophils (%) (Auto) , Differential Total Cells Counted 100, Neutrophils % ( Manual) 84H, Lymphocytes % (Manual) 3L, Monocytes % (Manual) 3, Eosinophils % ( Manual) 0, Basophils % (Manual) 0, Band Neutrophils 10H, Platelet Estimate DecreasedL, Platelet Morphology Normal, Red Blood Cell Morphology Normal, Sodium Level 142, Potassium Level 3.9, Chloride Level 108H, Carbon Dioxide Level 26, Anion Gap 8, Blood Urea Nitrogen 21H, Creatinine 0.6, Estimat Glomerular Filtration Rate > 60, Glucose Level 86, Calcium Level 8.8, Phosphorus Level 1.5L, Magnesium Level 2.0, Total Bilirubin 0.9, Aspartate Amino Transf (AST/SGOT) 271H, Alanine Aminotransferase (ALT/SGPT) 158H, Alkaline Phosphatase 54, Total Protein 6.6, Albumin 2.9L, Globulin 3.7, Albumin/ Globulin Ratio 0.8L, HIV (1&2) Antibody Rapid Negative 01/18/18 14:15: Vancomycin Level Trough < 2.0L Height (Feet): 5 Height (Inches): 7.00 Weight (Pounds): 132 Objective HEAD AND NECK: He has multiple lesions on his forehead on the right side, which seems to be scratches, but also may represent possible herpes infection. Mucous membrane are dry. The patient has bitemporal wasting. Sclerae are icteric. Head is normocephalic and atraumatic. LUNGS: Clear to auscultation. CARDIAC: Regular rate and rhythm. S1 and S2. No murmur. No rub. ABDOMEN: Soft, nontender, and nondistended. EXTREMITIES: Has scratch on his right knee. Otherwise, no edema, no clubbing, and no cyanosis. GENITOURINARY: Mckeon catheter is draining a dark color urine, otherwise negative. Sary Acuña MD January 18, 2018 20:20
[2018-01-18] MEDS ORDERED: 1/2 NS 1000ml IV ONE (20:50)
--- NOTE | 2018-01-18 23:45 | Consultation ---
DATE OF CONSULTATION: 01/18/2018 NEUROLOGY CONSULTATION CONSULTING PHYSICIAN: Joe Jarvis M.D. REQUESTING PHYSICIAN: Shaheed Vazquez D.O. HISTORY: Mr. Alex Barrett is a 47-year-old, gentleman, of unknown handedness, who does have a past history of Quitman's disease, a psychiatric illness labelled schizophrenia and major depression in different parts of his chart and chronic obstructive pulmonary disease. He apparently lives in a assisted where he was noted to have an alteration in his mental state, which consisted of episodic lethargy and agitation. He also had a fever and inability to eat and drink. As a result of these problems, he was brought into the [facility] emergency room and admitted for a urinary tract infection, sepsis, rhabdomyolysis, malnutrition and failure to thrive. At this point in time, the patient is awake, but exhibiting significant choreoathetotic movements and is unable to mentate in normal fashion. Thus further history could not be obtained. 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 FAMILY HISTORY: He tells me that his mother had Betzy's disease. PERSONAL HISTORY: Home: He lives in a assisted. Work: He is unemployed. Habits: None at this point in time. MEDICATIONS: Present medications include vancomycin, clonazepam, heparin for DVT prophylaxis, temazepam, Symmetrel 100 mg twice a day, Lamictal 100 mg twice a day, Seroquel 50 mg twice a day, insulin on a sliding scale, Haldol 5 mg q.6 h. p.r.n., Tylenol p.r.n., vancomycin, DuoNeb p.r.n., nitroglycerin p.r.n., and Zofran p.r.n. PHYSICAL EXAMINATION: GENERAL: He is a well-developed, lean gentleman exhibiting severe choreoathetotic movements, lying in bed. VITAL SIGNS: Pulse 70 per minute, blood pressure 110/70 mmHg, respirations 19 per minute, and temperature 97.8 degrees Fahrenheit. HEAD: Normocephalic with multiple cranial abrasions and in addition, scalp hematomas. EENT: Examination benign. NECK: No neck rigidity was observed. NEUROLOGIC EXAMINATION: MENTAL STATUS EXAMINATION: He was awake, but the level of alertness could not be ascertained. He was oriented to self only. He had significant problems with communicating, making further mental status testing impossible. SPEECH: He had a significant dysarthria. LANGUAGE: He was able to comprehend commands of a simple nature quite well. He however had significant problems expressing himself. CRANIAL NERVE EXAMINATION: II: He was able to count fingers and he did blink to threat in all [place]. III, IV & : The external ocular movements were full and the pupils 3 mm in diameter, equal, round, regular, and reactive to light. V: He had normal facial sensations and the temporales, masseters, and pterygoids functioned normally. VII: He had normal facial expressions and no facial asymmetry. VIII: He was able to hear and had no nystagmus. IX: The palate moved symmetrically on phonation. X: He had no hoarseness of voice. XI: The sternocleidomastoids and trapezii functioned relatively well. XII: The tongue was in the midline. MOTOR SYSTEM: The tone was increased in all four extremities with a mild degree of spasticity. Examination of muscle mass revealed generalized muscle wasting. Examination of power was exceedingly difficult to test, however, he had excellent hand special events director and moved all four extremities with relatively good strength. SENSORY EXAMINATION: He responded appropriately to deep pain. He was unable to cooperate for the sensory modalities. REFLEXES: 1+ and bilaterally symmetrical at the biceps, triceps, brachioradialis, and knees. 0 at both ankles. The plantar responses were flexor bilaterally. COORDINATION, STANCE & GAIT: Could not be tested. ABNORMAL MOVEMENTS: He exhibited constant choreoathetotic movements involving his entire body. DIAGNOSTIC IMPRESSION: 1. Mr. Alex Barrett is a 47-year-old, gentleman, of unknown handedness, who has a past history of Betzy's disease, a psychiatric illness, and chronic obstructive pulmonary disease. He was hospitalized for an alteration in his mental state with episodic lethargy and agitation, a fever and inability to eat and drink. On being evaluated in the emergency room, he was found to have a urinary tract infection, sepsis, rhabdomyolysis, malnutrition and failure to thrive. 2. On neurological examination at this time, he is oriented to self only. He is unable to cooperate for further mental status testing. He is severely dysarthric, has constant choreoathetotic movements and is quite miserable. 3. Laboratory data on admission revealed a white blood cell count elevated to 12,600 with a left-sided shift. His chemistry panel revealed a BUN elevated to 23, glucose elevated to 183, a total bilirubin elevated to 1.5. AST elevated at 345, ALT elevated to 141. The CK was elevated to 11,712 and his urinalysis revealed 2+ leukocyte esterase, 60-80 red blood cells and 5-10 white blood cells per high-power field. 4. 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 He also exhibits a significant elevation in his CK compatible with rhabdomyolysis. RECOMMENDATIONS: 1. Agree with management thus far. 2. Would keep the patient well hydrated. 3. Treatment of acute infectious process in an aggressive manner. 4. In the future if the patient's hepatic function improves, he may respond well to tetrabenazine for his choreoathetotic movements. 5. The patient will be observed closely and depending on how he fares over the next day or so, further recommendations will be given. Thank you for entrusting me with the care of Mr. Barrett. I shall follow him with you. Joe Jarvis M.D., M.S.P.H. DR: MITCH JOB#: [id number] [facility] HOSPITALJewell
[2018-01-19] VITALS: BP 103/69
--- NOTE | 2018-01-19 03:00 | Consultation ---
DATE OF CONSULTATION: 01/18/2018 NOTE: POOR AUDIO HEMATOLOGY/ONCOLOGY CONSULTATION CONSULTING PHYSICIAN: Kirt Aragon M.D. REQUESTING PHYSICIAN: Shaheed Vazquez D.O. REASON FOR CONSULTATION: Evaluation of thrombocytopenia and development of anemia. IDENTIFICATION DATA: Dear Dr. Shaheed Vazquez, The patient is a pleasant 47-year-old male with a past medical history, which is significant for Betzy chorea, schizophrenia, failure to thrive, malnutrition, COPD, hypertension, waxing and waning mental status, and agitation, has been feeling weak and not eating well. The patient was on dialysis in the past. History of COPD. Again noted, the patient is confused upon presentation, has been seen by Cardiology Service as well as ID. Hematology Service was consulted given ongoing thrombocytopenia. The patient was found to have gram-positive cocci in pairs and chains and requires further evaluation and treatment. PAST MEDICAL HISTORY: Weston chorea, schizophrenia, diabetes mellitus, COPD, anxiety, and anemia. MEDICATIONS: Cefepime, . ALLERGIES: No known drug allergies. SOCIAL HISTORY: Lives in a [facility]. FAMILY HISTORY: Noncontributory. REVIEW OF SYSTEMS: Unobtainable. PHYSICAL EXAMINATION: VITAL SIGNS: Reviewed. GENERAL: No acute distress. PULMONARY: Decreased breath sounds. . CARDIOVASCULAR: Regular rate. No S3 or S4. ABDOMEN: Soft, nontender, and nondistended. EXTREMITIES: No cyanosis, swelling, or edema. NEUROLOGIC: Able to move lower extremities. LABORATORY DATA: WBC 9.7, hemoglobin 12.7, hematocrit 36, platelet count 92,000, neutrophils 84%, and band neutrophils 10%. BUN 21 and creatinine 0.6. Phosphorus 1.5. AST of 271 and ALT of 156. ASSESSMENT AND RECOMMENDATIONS: 1. Thrombocytopenia, new onset, potentially secondary to underlying infection, cocci noted. 2. Hepatitis panel and human immunodeficiency virus, potentially DIC was . 3. Anemia due to underlying chronic disease. Continue to closely monitor. 4. Shortness of breath, potentially secondary to chronic obstructive pulmonary disease exacerbation. 5. 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 6. Schizophrenia. Evaluation by Psychiatry team. 7. Protein-calorie malnutrition, which is severe. 8. Failure to thrive. Closely monitor, potentially secondary to mental disorder in addition to chronic medical conditions. I appreciate the consultation. Kirt Aragon M.D. DR: LORNA JOB#: [id number] CC:
[2018-01-19 04:00] VITALS: BP 107/72
[2018-01-19] MEDS: NovoLOG Insulin Flexpen SUBQ SCH ×4 (06:09→21:00)
[2018-01-19 07:46] LABS: HEMATOCRIT 34.2 % (42.0-52.0); HEMOGLOBIN 11.8 G/DL (14.2-18.0); MEAN CORPUSCULAR VOLUME 89 FL (80-99); PLATELET COUNT 70 K/UL (150-450); RED BLOOD COUNT 3.84 M/UL (4.70-6.10); RED CELL DISTRIBUTION WIDTH 11.3 % (11.6-14.8); WHITE BLOOD COUNT 5.8 K/UL (4.8-10.8)
[2018-01-19 08:00] VITALS: BP 110/77
[2018-01-19 08:09] LABS: ALANINE AMINOTRANSFERASE 126 U/L (12-78); ALBUMIN 2.5 G/DL (3.4-5.0); ALBUMIN/GLOBULIN RATIO 0.7 (1.0-2.7); ALKALINE PHOSPHATASE 48 U/L (46-116); ANION GAP 8 mmol/L (5-15); ASPARTATE AMINO TRANSFERASE 135 U/L (15-37); BILIRUBIN,TOTAL 0.8 MG/DL (0.2-1.0); BLOOD UREA NITROGEN 10 mg/dL (7-18); CALCIUM 8.2 MG/DL (8.5-10.1); CARBON DIOXIDE 26 MMOL/L (21-32); CHLORIDE 108 MMOL/L (98-107); CREATININE 0.5 MG/DL (0.55-1.30); PHOSPHORUS 1.5 MG/DL (2.5-4.9); SODIUM 142 MMOL/L (136-145)
--- NOTE | 2018-01-19 08:55 | Nephrology Progress Note ---
Assessment/Plan Assessment 1. Acute rhabdomyolysis based on the elevated CK-MB and urine studies. 2. Possible diabetes with elevated blood sugar and ketone and glucose in the urine. 3. Proteinuria with 3+ and need to rule out causes of nephrotic range proteinuria. 4. Fever. 5. Altered mental status. Plan plan to continue ivf replace electrolyte as need it oral feeding check pre-albumin Subjective ROS Limited/Unobtainable: Yes Constitutional: Reports: no symptoms HEENT: Reports: no symptoms Subjective more awake today tolerated feeding Objective Objective Last 24 Hour Vital Signs Date Time Temp Pulse Resp B/P (MAP) Pulse Ox O2 Delivery O2 Flow Rate FiO2 01/19/18 04:00 97.2 58 18 107/72 92 97.2 01/19/18 00:00 98.0 76 18 103/69 94 98.0 01/18/18 20:00 Room Air 01/18/18 20:00 97.7 77 18 99/73 93 97.7 01/18/18 19:03 88 18 Room Air 01/18/18 16:00 97.8 70 19 110/70 98 97.8 01/18/18 12:00 97.5 74 18 100/65 96 97.5 Intake and Output 01/18/18 01/19/18 19:00 07:00 Intake Total 1200.000 ml 1300.000 ml Output Total 900 ml 750 ml Balance 300.000 ml 550.000 ml IV Total 1200.000 ml 1300.000 ml Output Urine Total 900 ml 750 ml # Bowel Movements 1 Laboratory Tests 01/18/18 14:15: Vancomycin Level Trough < 2.0L 01/19/18 06:15: White Blood Count 5.8, Red Blood Count 3.84L, Hemoglobin 11.8L, Hematocrit 34.2L , Mean Corpuscular Volume 89, Mean Corpuscular Hemoglobin 30.7, Mean Corpuscular Hemoglobin Concent 34.4, Red Cell Distribution Width 11.3L, Platelet Count 70L, Mean Platelet Volume 10.1, Neutrophils (%) (Auto) , Lymphocytes (%) (Auto) , Monocytes (%) (Auto) , Eosinophils (%) (Auto) , Basophils (%) (Auto) , Neutrophils % (Manual) [Pending], Lymphocytes % (Manual) [Pending], Platelet Estimate [Pending], Platelet Morphology [Pending], Sodium Level 142, Potassium Level 4.0, Chloride Level 108H, Carbon Dioxide Level 26, Anion Gap 8, Blood Urea Nitrogen 10, Creatinine 0.5L, Estimat Glomerular Filtration Rate > 60, Glucose Level 97, Calcium Level 8.2L, Phosphorus Level 1.5L, Magnesium Level 1.9, Total Bilirubin 0.8, Aspartate Amino Transf (AST/SGOT ) 135H, Alanine Aminotransferase (ALT/SGPT) 126H, Alkaline Phosphatase 48, Total Protein 5.9L, Albumin 2.5L, Globulin 3.4, Albumin/Globulin Ratio 0.7L Height (Feet): 5 Height (Inches): 7.00 Weight (Pounds): 127 Objective HEAD AND NECK: He has multiple lesions on his forehead on the right side, which seems to be scratches, but also may represent possible herpes infection. Mucous membrane are dry. The patient has bitemporal wasting. Sclerae are icteric. Head is normocephalic and atraumatic. LUNGS: Clear to auscultation. CARDIAC: Regular rate and rhythm. S1 and S2. No murmur. No rub. ABDOMEN: Soft, nontender, and nondistended. EXTREMITIES: Has scratch on his right knee. Otherwise, no edema, no clubbing, and no cyanosis. GENITOURINARY: Mckeon catheter is draining a dark color urine, otherwise negative. Sary Acuña MD January 19, 2018 08:55
[2018-01-19] MEDS: Heparin 5000 units/ml inj SUBQ SCH ×2 (09:00→21:00)
[2018-01-19] MEDS: Amantadine 100mg cap ORAL SCH ×2 (09:07→17:13)
--- NOTE | 2018-01-19 09:40 | General Progress Note ---
Assessment/Plan Assessment/Plan 1. Thrombocytopenia, new onset, potentially secondary to underlying infection, cocci noted. ==> could be also due to antibiotics, vanc, thus closely monitor if worse, consider change abx --> Hepatitis panel and human immunodeficiency virus are negative 3. Anemia due to underlying chronic disease. Continue to closely monitor. 4. Shortness of breath, potentially secondary to chronic obstructive pulmonary disease exacerbation. 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 6. Schizophrenia. Evaluation by Psychiatry team. 7. Protein-calorie malnutrition, which is severe. 8. Failure to thrive. Closely monitor, potentially secondary to mental disorder in addition to chronic medical conditions. Subjective Constitutional: Denies: no symptoms, chills, diaphoresis, fever, malaise, weakness, other HEENT: Denies: no symptoms, eye pain, blurred vision, tearing, double vision, ear pain, ear discharge, nose pain, nose congestion, throat pain, throat swelling, mouth pain, mouth swelling, other Cardiovascular: Denies: no symptoms, chest pain, edema, irregular heart rate, lightheadedness, palpitations, syncope, other Respiratory: Denies: no symptoms, cough, orthopnea, shortness of breath, SOB with excertion, SOB at rest, sputum, stridor, wheezing, other Gastrointestinal/Abdominal: Denies: no symptoms, abdomen distended, abdominal pain, black stools, tarry stools, blood in stool, constipated, diarrhea, difficulty swallowing, nausea, poor appetite, poor fluid intake, rectal bleeding , vomiting, other Neurologic/Psychiatric: Denies: no symptoms, anxiety, depressed, emotional problems, headache, numbness, paresthesia, pre-existing deficit, seizure, tingling, tremors, weakness, other Endocrine: Denies: no symptoms, excessive sweating, flushing, intolerance to cold, intolerance to heat, increased hunger, increased thirst, increased urine, unexplained weight gain, unexplained weight loss, other Hematologic/Lymphatic: Denies: no symptoms, anemia, easy bleeding, easy bruising, other Allergies: Coded Allergies: No Known Allergies (Unverified , 01/16/18) Subjective no events, no f/c, no nights sweats Objective Last 24 Hour Vital Signs Date Time Temp Pulse Resp B/P (MAP) Pulse Ox O2 Delivery O2 Flow Rate FiO2 01/19/18 04:00 97.2 58 18 107/72 92 97.2 01/19/18 00:00 98.0 76 18 103/69 94 98.0 01/18/18 20:00 Room Air 01/18/18 20:00 97.7 77 18 99/73 93 97.7 01/18/18 19:03 88 18 Room Air 01/18/18 16:00 97.8 70 19 110/70 98 97.8 01/18/18 12:00 97.5 74 18 100/65 96 97.5 Intake and Output 01/18/18 01/19/18 19:00 07:00 Intake Total 1200.000 ml 1300.000 ml Output Total 900 ml 750 ml Balance 300.000 ml 550.000 ml IV Total 1200.000 ml 1300.000 ml Output Urine Total 900 ml 750 ml # Bowel Movements 1 Laboratory Tests 01/18/18 14:15: Vancomycin Level Trough < 2.0L 01/19/18 06:15: White Blood Count 5.8, Red Blood Count 3.84L, Hemoglobin 11.8L, Hematocrit 34.2L , Mean Corpuscular Volume 89, Mean Corpuscular Hemoglobin 30.7, Mean Corpuscular Hemoglobin Concent 34.4, Red Cell Distribution Width 11.3L, Platelet Count 70L, Mean Platelet Volume 10.1, Neutrophils (%) (Auto) , Lymphocytes (%) (Auto) , Monocytes (%) (Auto) , Eosinophils (%) (Auto) , Basophils (%) (Auto) , Neutrophils % (Manual) [Pending], Lymphocytes % (Manual) [Pending], Platelet Estimate [Pending], Platelet Morphology [Pending], Sodium Level 142, Potassium Level 4.0, Chloride Level 108H, Carbon Dioxide Level 26, Anion Gap 8, Blood Urea Nitrogen 10, Creatinine 0.5L, Estimat Glomerular Filtration Rate > 60, Glucose Level 97, Calcium Level 8.2L, Phosphorus Level 1.5L, Magnesium Level 1.9, Total Bilirubin 0.8, Aspartate Amino Transf (AST/SGOT ) 135H, Alanine Aminotransferase (ALT/SGPT) 126H, Alkaline Phosphatase 48, Total Protein 5.9L, Albumin 2.5L, Globulin 3.4, Albumin/Globulin Ratio 0.7L Height (Feet): 5 Height (Inches): 7.00 Weight (Pounds): 127 General Appearance: alert EENT: TMs normal Neck: supple Cardiovascular: regular rhythm Respiratory/Chest: normal breath sounds Pelvis: normal rectal exam Extremities: non-tender Edema: 1+ Leg (L), 1+ Leg (R) Neurologic: alert Skin: warm/dry Kirt Aragon MD January 19, 2018 09:40
[2018-01-19] MEDS: Vancomycin 1250mg/D5W 250ml IVPB SCH (09:50)
--- NOTE | 2018-01-19 11:45 | GI Progress Note ---
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 Rodriguez. Assessment/Plan abdominal U/S reviewed, see full report. >> Gallbladder sludge. No definite stones. Negative for dilated ducts hepatitis panel negative patient passed ST evaluation, now on diet fu calorie count to see if nutritional needs are met >> PEG if necessary push PO ppi zofran prn prn transfusions avoid statins fu labs, trend LFTs The patient was seen and examined at bedside and all new and available data was reviewed in the patients chart. I agree with the above findings, impression and plan. (Patient seen earlier today. Signature stamp does not reflect patient encounter time.). - Jabier Rodriguez MD Subjective Subjective limited Objective Last 24 Hour Vital Signs Date Time Temp Pulse Resp B/P (MAP) Pulse Ox O2 Delivery O2 Flow Rate FiO2 01/19/18 04:00 97.2 58 18 107/72 92 97.2 01/19/18 00:00 98.0 76 18 103/69 94 98.0 01/18/18 20:00 Room Air 01/18/18 20:00 97.7 77 18 99/73 93 97.7 01/18/18 19:03 88 18 Room Air 01/18/18 16:00 97.8 70 19 110/70 98 97.8 01/18/18 12:00 97.5 74 18 100/65 96 97.5 Intake and Output 01/18/18 01/19/18 19:00 07:00 Intake Total 1200.000 ml 1300.000 ml Output Total 900 ml 750 ml Balance 300.000 ml 550.000 ml IV Total 1200.000 ml 1300.000 ml Output Urine Total 900 ml 750 ml # Bowel Movements 1 Laboratory Tests Test 5/16/18 14:15 01/19/18 06:15 Vancomycin Level Trough < 2.0 ug/mL (5.0-12.0) L White Blood Count 5.8 K/UL (4.8-10.8) Red Blood Count 3.84 M/UL (4.70-6.10) L Hemoglobin 11.8 G/DL (14.2-18.0) L Hematocrit 34.2 % (42.0-52.0) L Mean Corpuscular Volume 89 FL (80-99) Mean Corpuscular Hemoglobin 30.7 PG (27.0-31.0) Mean Corpuscular Hemoglobin Concent 34.4 G/DL (32.0-36.0) Red Cell Distribution Width 11.3 % (11.6-14.8) L Platelet Count 70 K/UL (150-450) L Mean Platelet Volume 10.1 FL (6.5-10.1) Neutrophils (%) (Auto) % (45.0-75.0) Lymphocytes (%) (Auto) % (20.0-45.0) Monocytes (%) (Auto) % (1.0-10.0) Eosinophils (%) (Auto) % (0.0-3.0) Basophils (%) (Auto) % (0.0-2.0) Differential Total Cells Counted 100 Neutrophils % (Manual) 84 % (45-75) H Lymphocytes % (Manual) 10 % (20-45) L Monocytes % (Manual) 6 % (1-10) Eosinophils % (Manual) 0 % (0-3) Basophils % (Manual) 0 % (0-2) Band Neutrophils 0 % (0-8) Platelet Estimate Decreased L Platelet Morphology Normal Anisocytosis 1+ Sodium Level 142 MMOL/L (136-145) Potassium Level 4.0 MMOL/L (3.5-5.1) Chloride Level 108 MMOL/L (98-107) H Carbon Dioxide Level 26 MMOL/L (21-32) Anion Gap 8 mmol/L (5-15) Blood Urea Nitrogen 10 mg/dL (7-18) Creatinine 0.5 MG/DL (0.55-1.30) L Estimat Glomerular Filtration Rate > 60 mL/min (>60) Glucose Level 97 MG/DL (74-106) Calcium Level 8.2 MG/DL (8.5-10.1) L Phosphorus Level 1.5 MG/DL (2.5-4.9) L Magnesium Level 1.9 MG/DL (1.8-2.4) Total Bilirubin 0.8 MG/DL (0.2-1.0) Aspartate Amino Transf (AST/SGOT) 135 U/L (15-37) H Alanine Aminotransferase (ALT/SGPT) 126 U/L (12-78) H Alkaline Phosphatase 48 U/L (46-116) Total Protein 5.9 G/DL (6.4-8.2) L Albumin 2.5 G/DL (3.4-5.0) L Globulin 3.4 g/dL Albumin/Globulin Ratio 0.7 (1.0-2.7) L Height (Feet): 5 Height (Inches): 7.00 Weight (Pounds): 127 General Appearance: no apparent distress, thin Cardiovascular: normal rate Respiratory/Chest: normal breath sounds, no respiratory distress Abdominal Exam: normal bowel sounds, non tender, soft Extremities: non-tender Nicol Jacobson NP January 19, 2018 11:45
[2018-01-19 12:00] VITALS: BP 114/72
--- NOTE | 2018-01-19 12:40 | Pulmonology Progress Note ---
Assessment/Plan Problems: (1) Sepsis (2) COPD (chronic obstructive pulmonary disease) (3) [place] chorea (4) Schizophrenia (5) Protein-calorie malnutrition, severe (6) Failure to thrive Assessment/Plan looks comfortable all labs and meds reviewed continue abx check cultures titrate fio2 to sat or 92% f/u with social workers effort to locate family Subjective ROS Limited/Unobtainable: No Constitutional: Reports: no symptoms HEENT: Repors: no symptoms Respiratory: Reports: no symptoms Allergies: Coded Allergies: No Known Allergies (Unverified , 01/16/18) Objective Last 24 Hour Vital Signs Date Time Temp Pulse Resp B/P (MAP) Pulse Ox O2 Delivery O2 Flow Rate FiO2 01/19/18 12:00 98.0 68 18 114/72 95 Room Air 98.0 01/19/18 08:00 97.8 63 18 110/77 94 Room Air 97.8 01/19/18 04:00 97.2 58 18 107/72 92 97.2 01/19/18 00:00 98.0 76 18 103/69 94 98.0 01/18/18 20:00 Room Air 01/18/18 20:00 97.7 77 18 99/73 93 97.7 01/18/18 19:03 88 18 Room Air 01/18/18 16:00 97.8 70 19 110/70 98 97.8 Intake and Output 01/18/18 01/19/18 19:00 07:00 Intake Total 1200.000 ml 1300.000 ml Output Total 900 ml 750 ml Balance 300.000 ml 550.000 ml IV Total 1200.000 ml 1300.000 ml Output Urine Total 900 ml 750 ml # Bowel Movements 1 General Appearance: WD/WN HEENT: normocephalic, atraumatic Respiratory/Chest: chest wall non-tender, lungs clear Cardiovascular: normal peripheral pulses, normal rate Abdomen: normal bowel sounds, soft, non tender Genitourinary: normal external genitalia Skin: no rash, no ulcers Microbiology Date/Time Source Procedure Growth Status 01/17/18 12:30 Blood Blood Culture - Preliminary NO GROWTH AFTER 24 HOURS Resulted 01/17/18 12:10 Blood Blood Culture - Preliminary NO GROWTH AFTER 24 HOURS Resulted 01/16/18 15:20 Blood Blood Culture - Final Streptococcus Pyogenes Grp A Complete 01/16/18 15:15 Blood Blood Culture - Final Streptococcus Pyogenes Grp A Complete 01/16/18 16:45 Nasal Nares MRSA Culture - Final Staphylococcus Aureus - Mrsa Complete 01/17/18 05:00 Back Gram Stain - Final Resulted 01/17/18 05:00 Wound Culture - Preliminary Staphylococcus Aureus - Mrsa Resulted 01/16/18 16:30 Rectum VRE Culture - Final NO VANCOMYCIN RESISTANT ENTEROCOCCUS ... Complete Laboratory Tests 01/18/18 14:15: Vancomycin Level Trough < 2.0L 01/19/18 06:15: White Blood Count 5.8, Red Blood Count 3.84L, Hemoglobin 11.8L, Hematocrit 34.2L , Mean Corpuscular Volume 89, Mean Corpuscular Hemoglobin 30.7, Mean Corpuscular Hemoglobin Concent 34.4, Red Cell Distribution Width 11.3L, Platelet Count 70L, Mean Platelet Volume 10.1, Neutrophils (%) (Auto) , Lymphocytes (%) (Auto) , Monocytes (%) (Auto) , Eosinophils (%) (Auto) , Basophils (%) (Auto) , Differential Total Cells Counted 100, Neutrophils % ( Manual) 84H, Lymphocytes % (Manual) 10L, Monocytes % (Manual) 6, Eosinophils % ( Manual) 0, Basophils % (Manual) 0, Band Neutrophils 0, Platelet Estimate DecreasedL, Platelet Morphology Normal, Anisocytosis 1+, Sodium Level 142, Potassium Level 4.0, Chloride Level 108H, Carbon Dioxide Level 26, Anion Gap 8, Blood Urea Nitrogen 10, Creatinine 0.5L, Estimat Glomerular Filtration Rate > 60 , Glucose Level 97, Calcium Level 8.2L, Phosphorus Level 1.5L, Magnesium Level 1.9, Total Bilirubin 0.8, Aspartate Amino Transf (AST/SGOT) 135H, Alanine Aminotransferase (ALT/SGPT) 126H, Alkaline Phosphatase 48, Total Protein 5.9L, Albumin 2.5L, Globulin 3.4, Albumin/Globulin Ratio 0.7L Current Medications Medications (Trade) Dose Ordered Sig/Javi Route PRN Reason Start Time Stop Time Status Last Admin Dose Admin Acetaminophen (Tylenol) 650 mg Q4H PRN RECTAL Mild Pain/Temp > 100.5 01/17/18 14:00 02/16/18 13:59 Albuterol/ Ipratropium (Albuterol/ Ipratropium) 3 ml Q4H PRN HHN Shortness of Breath 01/17/18 13:30 01/22/18 13:29 Amantadine HCl (Symmetrel) 100 mg TWICE A DAY ORAL 01/17/18 18:00 02/16/18 08:59 01/19/18 09:07 Clonazepam (KlonoPIN) 1 mg DAILY ORAL 01/18/18 09:00 01/24/18 08:59 01/19/18 09:07 Dextrose (Dextrose 50%) 25 ml STAT PRN IV Hypoglycemia 01/17/18 14:30 02/16/18 14:29 Dextrose (Dextrose 50%) 50 ml STAT PRN IV Hypoglycemia 01/17/18 14:30 02/16/18 14:29 Haloperidol Lactate (Haldol) 5 mg Q6H PRN IM Agitation 01/17/18 14:30 02/16/18 14:29 Heparin Sodium (Porcine) (Heparin 5000 units/ml) 5,000 units EVERY 12 HOURS SUBQ 01/17/18 21:00 02/16/18 08:59 01/17/18 21:04 Insulin Aspart (NovoLOG) BEFORE MEALS AND HS SUBQ 01/17/18 16:30 02/16/18 11:29 01/19/18 12:21 Lamotrigine (LaMICtal) 100 mg TWICE A DAY ORAL 01/17/18 18:00 02/16/18 08:59 01/19/18 09:07 Nitroglycerin (Ntg) 0.4 mg Q5M PRN SL Prn Chest Pain 01/17/18 13:30 02/16/18 01:29 Ondansetron HCl (Zofran) 4 mg Q6H PRN IVP Nausea & Vomiting 01/17/18 13:30 02/16/18 01:29 Polyethylene Glycol (Miralax) 17 gm DAILYPRN PRN ORAL Constipation 01/17/18 13:30 02/16/18 13:29 Quetiapine Fumarate (SEROquel) 50 mg TWICE A DAY ORAL 01/17/18 18:00 02/16/18 08:59 01/19/18 09:07 Sodium Chloride 1,000 ml @ 150 mls/hr Q6H40M IV 01/17/18 13:30 02/16/18 01:20 01/19/18 12:23 Temazepam (Restoril) 15 mg HSPRN PRN ORAL Insomnia 01/17/18 21:00 01/24/18 20:59 Vancomycin HCl (Vanco rx to dose) 1 ea DAILY PRN MISC . 01/17/18 13:45 02/16/18 13:44 Vancomycin HCl/ Dextrose 250 ml @ 166.667 mls/hr Q8HR@0000,0800,1600 IVPB 01/18/18 16:00 01/23/18 15:59 01/19/18 09:50 Annie Bryant MD January 19, 2018 12:40
--- NOTE | 2018-01-19 13:35 | Infectious Diseases Prog Note ---
Assessment/Plan Assessment/Plan ASSESSMENT: The patient is a 47-year-old male with: Fever, SP Leukocytosis, SP Bacteremia StrpGrA (rule out endocarditis ) 2DEcho : no Veg Transaminitis, improving Hepatitis panel : Neg US : Gallbladder sludge. No definite stones. Negative for dilated ducts, Borderline splenomegaly Chest x-ray, no acute process. HIV neg Betzy disease. Schizophrenia. Diabetes. COPD. Failure to thrive. Anxiety. Anemia. PLAN: on IV vancomycin d# 3 , change to PCN/G and Clinda d# 1 / ( upon improvment will change to Rocephin to complete the course ) Monitor CBC. Monitor BMP. Rec JERRY ( as there is no source for bacteremia ) Monitor chest x-ray. Subjective Allergies: Coded Allergies: No Known Allergies (Unverified , 01/16/18) Subjective StrpGrp A bactremia Objective Vital Signs Last 24 Hour Vital Signs Date Time Temp Pulse Resp B/P (MAP) Pulse Ox O2 Delivery O2 Flow Rate FiO2 01/19/18 12:00 98.0 68 18 114/72 95 Room Air 98.0 01/19/18 08:00 97.8 63 18 110/77 94 Room Air 97.8 01/19/18 04:00 97.2 58 18 107/72 92 97.2 01/19/18 00:00 98.0 76 18 103/69 94 98.0 01/18/18 20:00 Room Air 01/18/18 20:00 97.7 77 18 99/73 93 97.7 01/18/18 19:03 88 18 Room Air 01/18/18 16:00 97.8 70 19 110/70 98 97.8 Height (Feet): 5 Height (Inches): 7.00 Weight (Pounds): 127 HEENT: anicteric Respiratory/Chest: normal breath sounds Cardiovascular: regularly irregular Abdomen: non distended Microbiology Date/Time Source Procedure Growth Status 01/17/18 12:30 Blood Blood Culture - Preliminary NO GROWTH AFTER 24 HOURS Resulted 01/17/18 12:10 Blood Blood Culture - Preliminary NO GROWTH AFTER 24 HOURS Resulted 01/16/18 15:20 Blood Blood Culture - Final Streptococcus Pyogenes Grp A Complete 01/16/18 15:15 Blood Blood Culture - Final Streptococcus Pyogenes Grp A Complete 01/16/18 16:45 Nasal Nares MRSA Culture - Final Staphylococcus Aureus - Mrsa Complete 01/17/18 05:00 Back Gram Stain - Final Resulted 01/17/18 05:00 Wound Culture - Preliminary Staphylococcus Aureus - Mrsa Resulted 01/16/18 16:30 Rectum VRE Culture - Final NO VANCOMYCIN RESISTANT ENTEROCOCCUS ... Complete Laboratory Tests Test 01/18/18 14:15 01/19/18 06:15 Vancomycin Level Trough < 2.0 ug/mL (5.0-12.0) L White Blood Count 5.8 K/UL (4.8-10.8) Red Blood Count 3.84 M/UL (4.70-6.10) L Hemoglobin 11.8 G/DL (14.2-18.0) L Hematocrit 34.2 % (42.0-52.0) L Mean Corpuscular Volume 89 FL (80-99) Mean Corpuscular Hemoglobin 30.7 PG (27.0-31.0) Mean Corpuscular Hemoglobin Concent 34.4 G/DL (32.0-36.0) Red Cell Distribution Width 11.3 % (11.6-14.8) L Platelet Count 70 K/UL (150-450) L Mean Platelet Volume 10.1 FL (6.5-10.1) Neutrophils (%) (Auto) % (45.0-75.0) Lymphocytes (%) (Auto) % (20.0-45.0) Monocytes (%) (Auto) % (1.0-10.0) Eosinophils (%) (Auto) % (0.0-3.0) Basophils (%) (Auto) % (0.0-2.0) Differential Total Cells Counted 100 Neutrophils % (Manual) 84 % (45-75) H Lymphocytes % (Manual) 10 % (20-45) L Monocytes % (Manual) 6 % (1-10) Eosinophils % (Manual) 0 % (0-3) Basophils % (Manual) 0 % (0-2) Band Neutrophils 0 % (0-8) Platelet Estimate Decreased L Platelet Morphology Normal Anisocytosis 1+ Sodium Level 142 MMOL/L (136-145) Potassium Level 4.0 MMOL/L (3.5-5.1) Chloride Level 108 MMOL/L (98-107) H Carbon Dioxide Level 26 MMOL/L (21-32) Anion Gap 8 mmol/L (5-15) Blood Urea Nitrogen 10 mg/dL (7-18) Creatinine 0.5 MG/DL (0.55-1.30) L Estimat Glomerular Filtration Rate > 60 mL/min (>60) Glucose Level 97 MG/DL (74-106) Calcium Level 8.2 MG/DL (8.5-10.1) L Phosphorus Level 1.5 MG/DL (2.5-4.9) L Magnesium Level 1.9 MG/DL (1.8-2.4) Total Bilirubin 0.8 MG/DL (0.2-1.0) Aspartate Amino Transf (AST/SGOT) 135 U/L (15-37) H Alanine Aminotransferase (ALT/SGPT) 126 U/L (12-78) H Alkaline Phosphatase 48 U/L (46-116) Total Protein 5.9 G/DL (6.4-8.2) L Albumin 2.5 G/DL (3.4-5.0) L Globulin 3.4 g/dL Albumin/Globulin Ratio 0.7 (1.0-2.7) L Current Medications Medications (Trade) Dose Ordered Sig/Javi Route PRN Reason Start Time Stop Time Status Last Admin Dose Admin Acetaminophen (Tylenol) 650 mg Q4H PRN RECTAL Mild Pain/Temp > 100.5 01/17/18 14:00 02/16/18 13:59 Albuterol/ Ipratropium (Albuterol/ Ipratropium) 3 ml Q4H PRN HHN Shortness of Breath 01/17/18 13:30 01/22/18 13:29 Amantadine HCl (Symmetrel) 100 mg TWICE A DAY ORAL 01/17/18 18:00 02/16/18 08:59 01/19/18 09:07 Clonazepam (KlonoPIN) 1 mg DAILY ORAL 01/18/18 09:00 01/24/18 08:59 01/19/18 09:07 Dextrose (Dextrose 50%) 25 ml STAT PRN IV Hypoglycemia 01/17/18 14:30 02/16/18 14:29 Dextrose (Dextrose 50%) 50 ml STAT PRN IV Hypoglycemia 01/17/18 14:30 02/16/18 14:29 Haloperidol Lactate (Haldol) 5 mg Q6H PRN IM Agitation 01/17/18 14:30 02/16/18 14:29 Heparin Sodium (Porcine) (Heparin 5000 units/ml) 5,000 units EVERY 12 HOURS SUBQ 01/17/18 21:00 02/16/18 08:59 01/17/18 21:04 Insulin Aspart (NovoLOG) BEFORE MEALS AND HS SUBQ 01/17/18 16:30 02/16/18 11:29 01/19/18 12:21 Lamotrigine (LaMICtal) 100 mg TWICE A DAY ORAL 01/17/18 18:00 02/16/18 08:59 01/19/18 09:07 Nitroglycerin (Ntg) 0.4 mg Q5M PRN SL Prn Chest Pain 01/17/18 13:30 02/16/18 01:29 Ondansetron HCl (Zofran) 4 mg Q6H PRN IVP Nausea & Vomiting 01/17/18 13:30 02/16/18 01:29 Polyethylene Glycol (Miralax) 17 gm DAILYPRN PRN ORAL Constipation 01/17/18 13:30 02/16/18 13:29 Quetiapine Fumarate (SEROquel) 50 mg TWICE A DAY ORAL 01/17/18 18:00 02/16/18 08:59 01/19/18 09:07 Sodium Chloride 1,000 ml @ 150 mls/hr Q6H40M IV 01/17/18 13:30 02/16/18 01:20 01/19/18 12:23 Temazepam (Restoril) 15 mg HSPRN PRN ORAL Insomnia 01/17/18 21:00 01/24/18 20:59 Vancomycin HCl (Vanco rx to dose) 1 ea DAILY PRN MISC . 01/17/18 13:45 02/16/18 13:44 Vancomycin HCl/ Dextrose 250 ml @ 166.667 mls/hr Q8HR@0000,0800,1600 IVPB 01/18/18 16:00 01/23/18 15:59 01/19/18 09:50 Jamal Mcghee MD January 19, 2018 13:35
--- NOTE | 2018-01-19 15:28 | General Progress Note ---
Assessment/Plan Problem List: (1) Diabetes ICD Codes: E11.9 - Type 2 diabetes mellitus without complications SNOMED: 63606190 (2) Rhabdomyolysis ICD Codes: M62.82 - Rhabdomyolysis SNOMED: 406147814 (3) COPD (chronic obstructive pulmonary disease) ICD Codes: J44.9 - Chronic obstructive pulmonary disease, unspecified SNOMED: 58633168 (4) Betzy chorea ICD Codes: G10 - Mccracken's disease SNOMED: 84273985 (5) Sepsis ICD Codes: A41.9 - Sepsis, unspecified organism SNOMED: 47747637 (6) Failure to thrive SNOMED: 67974783 (7) Schizophrenia ICD Codes: F20.9 - Schizophrenia, unspecified SNOMED: 14469884 (8) Protein-calorie malnutrition, severe ICD Codes: E43 - Unspecified severe protein-calorie malnutrition SNOMED: 571826258 Status: unchanged Assessment/Plan otpt diet abx heme eval cbc bmp am psyc transfer Subjective Constitutional: Reports: weakness Allergies: Coded Allergies: No Known Allergies (Unverified , 01/16/18) All Systems: reviewed and negative except above Subjective confused in bed Objective Last 24 Hour Vital Signs Date Time Temp Pulse Resp B/P (MAP) Pulse Ox O2 Delivery O2 Flow Rate FiO2 01/19/18 12:00 98.0 68 18 114/72 95 Room Air 98.0 01/19/18 08:00 97.8 63 18 110/77 94 Room Air 97.8 01/19/18 04:00 97.2 58 18 107/72 92 97.2 01/19/18 00:00 98.0 76 18 103/69 94 98.0 01/18/18 20:00 Room Air 01/18/18 20:00 97.7 77 18 99/73 93 97.7 01/18/18 19:03 88 18 Room Air 01/18/18 16:00 97.8 70 19 110/70 98 97.8 Intake and Output 01/18/18 01/19/18 19:00 07:00 Intake Total 1200.000 ml 1300.000 ml Output Total 900 ml 750 ml Balance 300.000 ml 550.000 ml IV Total 1200.000 ml 1300.000 ml Output Urine Total 900 ml 750 ml # Bowel Movements 1 Laboratory Tests 01/19/18 06:15: White Blood Count 5.8, Red Blood Count 3.84L, Hemoglobin 11.8L, Hematocrit 34.2L , Mean Corpuscular Volume 89, Mean Corpuscular Hemoglobin 30.7, Mean Corpuscular Hemoglobin Concent 34.4, Red Cell Distribution Width 11.3L, Platelet Count 70L, Mean Platelet Volume 10.1, Neutrophils (%) (Auto) , Lymphocytes (%) (Auto) , Monocytes (%) (Auto) , Eosinophils (%) (Auto) , Basophils (%) (Auto) , Differential Total Cells Counted 100, Neutrophils % ( Manual) 84H, Lymphocytes % (Manual) 10L, Monocytes % (Manual) 6, Eosinophils % ( Manual) 0, Basophils % (Manual) 0, Band Neutrophils 0, Platelet Estimate DecreasedL, Platelet Morphology Normal, Anisocytosis 1+, Sodium Level 142, Potassium Level 4.0, Chloride Level 108H, Carbon Dioxide Level 26, Anion Gap 8, Blood Urea Nitrogen 10, Creatinine 0.5L, Estimat Glomerular Filtration Rate > 60 , Glucose Level 97, Calcium Level 8.2L, Phosphorus Level 1.5L, Magnesium Level 1.9, Total Bilirubin 0.8, Aspartate Amino Transf (AST/SGOT) 135H, Alanine Aminotransferase (ALT/SGPT) 126H, Alkaline Phosphatase 48, Total Protein 5.9L, Albumin 2.5L, Globulin 3.4, Albumin/Globulin Ratio 0.7L Height (Feet): 5 Height (Inches): 7.00 Weight (Pounds): 127 General Appearance: lethargic, confused EENT: normal ENT inspection Neck: normal alignment Cardiovascular: normal peripheral pulses, normal rate, regular rhythm Respiratory/Chest: chest wall non-tender, lungs clear, normal breath sounds Abdomen: normal bowel sounds, non tender, soft Extremities: normal inspection Edema: no edema noted Arm (L), no edema noted Arm (R), no edema noted Leg (L), no edema noted Leg (R), no edema noted Pedal (L), no edema noted Pedal (R), no edema noted Generalized Neurologic: motor weakness Skin: normal pigmentation, warm/dry Shaheed Vazquez Blue JUNG January 19, 2018 15:28
--- NOTE | 2018-01-19 15:59 | General Progress Note ---
Assessment/Plan Status: stable Subjective Date patient seen: January 19, 2018 Neurologic/Psychiatric: Reports: anxiety, depressed, emotional problems Allergies: Coded Allergies: No Known Allergies (Unverified , 01/16/18) Objective Last 24 Hour Vital Signs Date Time Temp Pulse Resp B/P (MAP) Pulse Ox O2 Delivery O2 Flow Rate FiO2 01/19/18 12:00 98.0 68 18 114/72 95 Room Air 98.0 01/19/18 08:00 97.8 63 18 110/77 94 Room Air 97.8 01/19/18 04:00 97.2 58 18 107/72 92 97.2 01/19/18 00:00 98.0 76 18 103/69 94 98.0 01/18/18 20:00 Room Air 01/18/18 20:00 97.7 77 18 99/73 93 97.7 01/18/18 19:03 88 18 Room Air 01/18/18 16:00 97.8 70 19 110/70 98 97.8 Intake and Output 01/18/18 01/19/18 19:00 07:00 Intake Total 1200.000 ml 1300.000 ml Output Total 900 ml 750 ml Balance 300.000 ml 550.000 ml IV Total 1200.000 ml 1300.000 ml Output Urine Total 900 ml 750 ml # Bowel Movements 1 Laboratory Tests 01/19/18 06:15: White Blood Count 5.8, Red Blood Count 3.84L, Hemoglobin 11.8L, Hematocrit 34.2L , Mean Corpuscular Volume 89, Mean Corpuscular Hemoglobin 30.7, Mean Corpuscular Hemoglobin Concent 34.4, Red Cell Distribution Width 11.3L, Platelet Count 70L, Mean Platelet Volume 10.1, Neutrophils (%) (Auto) , Lymphocytes (%) (Auto) , Monocytes (%) (Auto) , Eosinophils (%) (Auto) , Basophils (%) (Auto) , Differential Total Cells Counted 100, Neutrophils % ( Manual) 84H, Lymphocytes % (Manual) 10L, Monocytes % (Manual) 6, Eosinophils % ( Manual) 0, Basophils % (Manual) 0, Band Neutrophils 0, Platelet Estimate DecreasedL, Platelet Morphology Normal, Anisocytosis 1+, Sodium Level 142, Potassium Level 4.0, Chloride Level 108H, Carbon Dioxide Level 26, Anion Gap 8, Blood Urea Nitrogen 10, Creatinine 0.5L, Estimat Glomerular Filtration Rate > 60 , Glucose Level 97, Calcium Level 8.2L, Phosphorus Level 1.5L, Magnesium Level 1.9, Total Bilirubin 0.8, Aspartate Amino Transf (AST/SGOT) 135H, Alanine Aminotransferase (ALT/SGPT) 126H, Alkaline Phosphatase 48, Total Protein 5.9L, Albumin 2.5L, Globulin 3.4, Albumin/Globulin Ratio 0.7L Height (Feet): 5 Height (Inches): 7.00 Weight (Pounds): 127 General Appearance: no apparent distress, alert, confused, agitated Rosalinda Chew M.D. January 19, 2018 15:59
[2018-01-19 16:00] VITALS: BP 115/72
[2018-01-19] MEDS: SODIUM CHLORIDE IVPB SCH ×6 (16:40→23:26)
[2018-01-19] MEDS: [UNRECOGNIZED DRUG - OTHER] IVPB SCH ×6 (16:40→23:26)
[2018-01-19 20:00] VITALS: BP 92/61
--- NOTE | 2018-01-19 20:04 | Neurology Progress Note ---
Interim History Interim History Interim History Mr. Barrett is very sleepy today. As per his nurse he was given Seroquel recently. He can be aroused but rapidly goes back to sleep. When aroused he starts having choreoathetotic movements. He is unable to tell me where he is. He says he is comfortable. Review of Systems Neuro Review of Systems Unable to obtain. Objective Physical Exam Last Vital Signs Date Time Temp Pulse Resp B/P (MAP) Pulse Ox O2 Delivery O2 Flow Rate FiO2 01/19/18 16:00 98.0 68 18 115/72 97 Room Air 98.0 Laboratory Tests Test 01/19/18 06:15 White Blood Count 5.8 K/UL (4.8-10.8) Red Blood Count 3.84 M/UL (4.70-6.10) L Hemoglobin 11.8 G/DL (14.2-18.0) L Hematocrit 34.2 % (42.0-52.0) L Mean Corpuscular Volume 89 FL (80-99) Mean Corpuscular Hemoglobin 30.7 PG (27.0-31.0) Mean Corpuscular Hemoglobin Concent 34.4 G/DL (32.0-36.0) Red Cell Distribution Width 11.3 % (11.6-14.8) L Platelet Count 70 K/UL (150-450) L Mean Platelet Volume 10.1 FL (6.5-10.1) Neutrophils (%) (Auto) % (45.0-75.0) Lymphocytes (%) (Auto) % (20.0-45.0) Monocytes (%) (Auto) % (1.0-10.0) Eosinophils (%) (Auto) % (0.0-3.0) Basophils (%) (Auto) % (0.0-2.0) Differential Total Cells Counted 100 Neutrophils % (Manual) 84 % (45-75) H Lymphocytes % (Manual) 10 % (20-45) L Monocytes % (Manual) 6 % (1-10) Eosinophils % (Manual) 0 % (0-3) Basophils % (Manual) 0 % (0-2) Band Neutrophils 0 % (0-8) Platelet Estimate Decreased L Platelet Morphology Normal Anisocytosis 1+ Sodium Level 142 MMOL/L (136-145) Potassium Level 4.0 MMOL/L (3.5-5.1) Chloride Level 108 MMOL/L (98-107) H Carbon Dioxide Level 26 MMOL/L (21-32) Anion Gap 8 mmol/L (5-15) Blood Urea Nitrogen 10 mg/dL (7-18) Creatinine 0.5 MG/DL (0.55-1.30) L Estimat Glomerular Filtration Rate > 60 mL/min (>60) Glucose Level 97 MG/DL (74-106) Calcium Level 8.2 MG/DL (8.5-10.1) L Phosphorus Level 1.5 MG/DL (2.5-4.9) L Magnesium Level 1.9 MG/DL (1.8-2.4) Total Bilirubin 0.8 MG/DL (0.2-1.0) Aspartate Amino Transf (AST/SGOT) 135 U/L (15-37) H Alanine Aminotransferase (ALT/SGPT) 126 U/L (12-78) H Alkaline Phosphatase 48 U/L (46-116) Total Protein 5.9 G/DL (6.4-8.2) L Albumin 2.5 G/DL (3.4-5.0) L Globulin 3.4 g/dL Albumin/Globulin Ratio 0.7 (1.0-2.7) L Neurologic Exam Objective PHYSICAL EXAMINATION: GENERAL: He is a well-developed, lean gentleman, lying motionlessly when he sleeps but exhibiting severe choreoathetotic movements when aroused. HEAD: Normocephalic with multiple cranial abrasions and in addition, scalp hematomas. EENT: Examination benign. NECK: No neck rigidity was observed. NEUROLOGIC EXAMINATION: MENTAL STATUS EXAMINATION: He was drowsy but could be aroused briefly. He was oriented to self only. He had significant problems with communicating, making further mental status testing impossible. SPEECH: He had a significant dysarthria. LANGUAGE: He was able to comprehend commands of a simple nature quite well. He however had significant problems expressing himself. CRANIAL NERVE EXAMINATION: II: He was able to count fingers and he did blink to threat in all [place]. III, IV & : The external ocular movements were full and the pupils 3 mm in diameter, equal, round, regular, and reactive to light. V: He had normal facial sensations and the temporales, masseters, and pterygoids functioned normally. VII: He had normal facial expressions and no facial asymmetry. VIII: He was able to hear and had no nystagmus. IX: The palate moved symmetrically on phonation. X: He had no hoarseness of voice. XI: The sternocleidomastoids and trapezii functioned relatively well. XII: The tongue was in the midline. MOTOR SYSTEM: The tone was increased in all four extremities with a mild degree of spasticity. Examination of muscle mass revealed generalized muscle wasting. Examination of power was exceedingly difficult to test, however, he had excellent hand security dispatcher and moved all four extremities with relatively good strength. SENSORY EXAMINATION: He responded appropriately to deep pain. He was unable to cooperate for the sensory modalities. REFLEXES: 1+ and bilaterally symmetrical at the biceps, triceps, brachioradialis , and knees. 0 at both ankles. The plantar responses were flexor bilaterally. COORDINATION, STANCE & GAIT: Could not be tested. ABNORMAL MOVEMENTS: He exhibited constant choreoathetotic movements involving his entire body when awake. Impression/Recommendations Diagnostic Impression 1. Mr. Alex Barrett is a 47-year-old, gentleman, of unknown handedness , who has a past history of [place]'s disease, a psychiatric illness, and chronic obstructive pulmonary disease. He was hospitalized for an alteration in his mental state with episodic lethargy and agitation, a fever and inability to eat and drink. On being evaluated in the emergency room, he was found to have a urinary tract infection, sepsis, rhabdomyolysis, malnutrition and failure to thrive. 2. He is very sleepy today. As per his nurse he was given Seroquel recently. He can be aroused but rapidly goes back to sleep. When aroused he starts having choreoathetotic movements. He is unable to tell me where he is. He says he is comfortable. 3. On neurological examination at this time, he is oriented to self only. He is unable to cooperate for further mental status testing. He is severely dysarthric and has constant choreoathetotic movements when aroused 4. Laboratory data on admission revealed a white blood cell count elevated to 12 ,600 with a left-sided shift. His chemistry panel revealed a BUN elevated to 23 , glucose elevated to 183, a total bilirubin elevated to 1.5. AST elevated at 345, ALT elevated to 141. The CK was elevated to 11,712 and his urinalysis revealed 2+ leukocyte esterase, 60-80 red blood cells and 5-10 white blood cells per high-power field. 5. 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 He also exhibits a significant elevation in his CK compatible with rhabdomyolysis. Recommendations 1. Continue present management. 2. Keep the patient well hydrated. 3. Treatment of acute infectious process in an aggressive manner. 4. In the future if the patient's hepatic function improves, he may respond well to tetrabenazine for his choreoathetotic movements. 5. Observe closely. Joe Jarvis M.D., M.S.P.H. JOE JARVIS January 19, 2018 20:04
--- NOTE | 2018-01-19 22:54 | Cardiology Progress Note ---
Assessment/Plan Status: ambulating well Assessment/Plan 1. Sinus tachycardia, likely secondary to severe hypovolemia and sepsis, responding well to ABx and hydration. 2. History of COPD. Chest x-ray shows normal cardiac silhouette with no acute cardiopulmonary disease. 3. History of paranoid schizophrenia. 4. History of [place] chorea. 5. Prerenal azotemia with contraction alkalosis likely due to intravascular volume depletion. 6. Acute transaminitis, improving. Subjective Subjective Not on the telemetry unit. Not verbally communicating. Objective Last 24 Hour Vital Signs Date Time Temp Pulse Resp B/P (MAP) Pulse Ox O2 Delivery O2 Flow Rate FiO2 01/19/18 20:20 78 18 Room Air 21 01/19/18 20:00 98.1 76 19 92/61 96 98.1 01/19/18 16:00 98.0 68 18 115/72 97 Room Air 98.0 01/19/18 12:00 98.0 68 18 114/72 95 Room Air 98.0 01/19/18 08:00 97.8 63 18 110/77 94 Room Air 97.8 01/19/18 04:00 97.2 58 18 107/72 92 97.2 01/19/18 00:00 98.0 76 18 103/69 94 98.0 Intake and Output 01/18/18 01/19/18 19:00 07:00 Intake Total 1200.000 ml 1300.000 ml Output Total 900 ml 750 ml Balance 300.000 ml 550.000 ml IV Total 1200.000 ml 1300.000 ml Output Urine Total 900 ml 750 ml # Bowel Movements 1 Laboratory Tests Test 01/19/18 06:15 White Blood Count 5.8 K/UL (4.8-10.8) Red Blood Count 3.84 M/UL (4.70-6.10) L Hemoglobin 11.8 G/DL (14.2-18.0) L Hematocrit 34.2 % (42.0-52.0) L Mean Corpuscular Volume 89 FL (80-99) Mean Corpuscular Hemoglobin 30.7 PG (27.0-31.0) Mean Corpuscular Hemoglobin Concent 34.4 G/DL (32.0-36.0) Red Cell Distribution Width 11.3 % (11.6-14.8) L Platelet Count 70 K/UL (150-450) L Mean Platelet Volume 10.1 FL (6.5-10.1) Neutrophils (%) (Auto) % (45.0-75.0) Lymphocytes (%) (Auto) % (20.0-45.0) Monocytes (%) (Auto) % (1.0-10.0) Eosinophils (%) (Auto) % (0.0-3.0) Basophils (%) (Auto) % (0.0-2.0) Differential Total Cells Counted 100 Neutrophils % (Manual) 84 % (45-75) H Lymphocytes % (Manual) 10 % (20-45) L Monocytes % (Manual) 6 % (1-10) Eosinophils % (Manual) 0 % (0-3) Basophils % (Manual) 0 % (0-2) Band Neutrophils 0 % (0-8) Platelet Estimate Decreased L Platelet Morphology Normal Anisocytosis 1+ Sodium Level 142 MMOL/L (136-145) Potassium Level 4.0 MMOL/L (3.5-5.1) Chloride Level 108 MMOL/L (98-107) H Carbon Dioxide Level 26 MMOL/L (21-32) Anion Gap 8 mmol/L (5-15) Blood Urea Nitrogen 10 mg/dL (7-18) Creatinine 0.5 MG/DL (0.55-1.30) L Estimat Glomerular Filtration Rate > 60 mL/min (>60) Glucose Level 97 MG/DL (74-106) Calcium Level 8.2 MG/DL (8.5-10.1) L Phosphorus Level 1.5 MG/DL (2.5-4.9) L Magnesium Level 1.9 MG/DL (1.8-2.4) Total Bilirubin 0.8 MG/DL (0.2-1.0) Aspartate Amino Transf (AST/SGOT) 135 U/L (15-37) H Alanine Aminotransferase (ALT/SGPT) 126 U/L (12-78) H Alkaline Phosphatase 48 U/L (46-116) Total Protein 5.9 G/DL (6.4-8.2) L Albumin 2.5 G/DL (3.4-5.0) L Globulin 3.4 g/dL Albumin/Globulin Ratio 0.7 (1.0-2.7) L Microbiology Date/Time Source Procedure Growth Status 01/17/18 12:30 Blood Blood Culture - Preliminary NO GROWTH AFTER 24 HOURS Resulted 01/17/18 12:10 Blood Blood Culture - Preliminary NO GROWTH AFTER 24 HOURS Resulted 01/17/18 05:00 Back Gram Stain - Final Resulted 01/17/18 05:00 Wound Culture - Preliminary Staphylococcus Aureus - Mrsa Resulted Objective HEENT: Atraumatic and normocephalic. Anicteric. Bitemporal wasting. There is dry mucosal membrane. Pupils are equal, round, and reactive to light and accommodation. Extraocular muscles intact. NECK: JVP less than 5 cm. No carotid bruit. Carotid upstrokes 2+ bilaterally. CARDIOVASCULAR: Normal S1 and S2. Regular rate and rhythm. Tachycardic. No murmurs, gallops, or rubs. PMI is at fourth intercostal space in the midclavicular line. LUNGS: Clear to auscultation bilaterally. ABDOMEN: Soft, nontender, and nondistended. No hepatosplenomegaly. Positive bowel sounds. EXTREMITIES: No evidence of edema, clubbing, or cyanosis. José Luis Costa MD January 19, 2018 22:54
[2018-01-20] VITALS: BP 101/70
[2018-01-20] MEDS: [UNRECOGNIZED DRUG - OTHER] IVPB SCH ×12 (02:41→23:06)
[2018-01-20] MEDS: SODIUM CHLORIDE IVPB SCH ×12 (02:41→23:06)
[2018-01-20 04:00] VITALS: BP 100/70
[2018-01-20] MEDS: NovoLOG Insulin Flexpen SUBQ SCH ×4 (06:07→21:00)
[2018-01-20 08:00] VITALS: BP 127/71
[2018-01-20] MEDS: Amantadine 100mg cap ORAL SCH ×2 (08:39→17:29)
[2018-01-20] MEDS: Heparin 5000 units/ml inj SUBQ SCH ×2 (09:00→21:00)
[2018-01-20 09:08] LABS: HEMATOCRIT 38.1 % (42.0-52.0); HEMOGLOBIN 12.8 G/DL (14.2-18.0); MEAN CORPUSCULAR VOLUME 90 FL (80-99); PLATELET COUNT 62 K/UL (150-450); RED BLOOD COUNT 4.21 M/UL (4.70-6.10); RED CELL DISTRIBUTION WIDTH 11.5 % (11.6-14.8); WHITE BLOOD COUNT 5.5 K/UL (4.8-10.8)
--- NOTE | 2018-01-20 09:19 | Infectious Diseases Prog Note ---
Assessment/Plan Assessment/Plan ASSESSMENT: The patient is a 47-year-old male with: Fever, SP Leukocytosis, SP Bacteremia StrpGrA ? source (rule out endocarditis ) 2DEcho : no Veg Transaminitis, improving Hepatitis panel : Neg US : Gallbladder sludge. No definite stones. Negative for dilated ducts, Borderline splenomegaly Chest x-ray, no acute process. HIV neg [place] disease. Schizophrenia. Diabetes. COPD. Failure to thrive. Anxiety. Anemia. PLAN: on PCN/G and Clinda d# 2 / 14 ( upon improvment will change to Rocephin to complete the course ) 01/19 IV vancomycin d# 3 Monitor CBC. Monitor BMP. Rec JERRY ( as there is no source for bacteremia ) Monitor chest x-ray. Subjective Allergies: Coded Allergies: No Known Allergies (Unverified , 01/16/18) Subjective Afebrile Objective Vital Signs Last 24 Hour Vital Signs Date Time Temp Pulse Resp B/P (MAP) Pulse Ox O2 Delivery O2 Flow Rate FiO2 01/20/18 08:30 82 18 Room Air 21 01/20/18 04:00 97.4 64 19 100/70 97 97.4 01/20/18 00:00 98.0 65 21 101/70 99 98.0 01/19/18 20:20 78 18 Room Air 21 01/19/18 20:00 Room Air 01/19/18 20:00 98.1 76 19 92/61 96 98.1 01/19/18 16:00 98.0 68 18 115/72 97 Room Air 98.0 01/19/18 12:00 98.0 68 18 114/72 95 Room Air 98.0 Height (Feet): 5 Height (Inches): 7.00 Weight (Pounds): 137 HEENT: mucous membranes moist Respiratory/Chest: no respiratory distress Cardiovascular: regular rhythm Abdomen: non distended Microbiology Date/Time Source Procedure Growth Status 01/17/18 12:30 Blood Blood Culture - Preliminary NO GROWTH AFTER 48 HOURS Resulted 01/17/18 12:10 Blood Blood Culture - Preliminary NO GROWTH AFTER 48 HOURS Resulted Laboratory Tests Test 01/20/18 06:35 White Blood Count Pending Red Blood Count Pending Hemoglobin Pending Hematocrit Pending Mean Corpuscular Volume Pending Mean Corpuscular Hemoglobin Pending Mean Corpuscular Hemoglobin Concent Pending Red Cell Distribution Width Pending Platelet Count Pending Mean Platelet Volume Pending Neutrophils (%) (Auto) Pending Lymphocytes (%) (Auto) Pending Monocytes (%) (Auto) Pending Eosinophils (%) (Auto) Pending Basophils (%) (Auto) Pending Sodium Level Pending Potassium Level Pending Chloride Level Pending Carbon Dioxide Level Pending Blood Urea Nitrogen Pending Creatinine Pending Estimat Glomerular Filtration Rate Pending Glucose Level Pending Calcium Level Pending Total Bilirubin Pending Aspartate Amino Transf (AST/SGOT) Pending Alanine Aminotransferase (ALT/SGPT) Pending Alkaline Phosphatase Pending Total Protein Pending Albumin Pending Globulin Pending Current Medications Medications (Trade) Dose Ordered Sig/Javi Route PRN Reason Start Time Stop Time Status Last Admin Dose Admin Acetaminophen (Tylenol) 650 mg Q4H PRN RECTAL Mild Pain/Temp > 100.5 01/17/18 14:00 02/16/18 13:59 Albuterol/ Ipratropium (Albuterol/ Ipratropium) 3 ml Q4H PRN HHN Shortness of Breath 01/17/18 13:30 01/22/18 13:29 Amantadine HCl (Symmetrel) 100 mg TWICE A DAY ORAL 01/17/18 18:00 02/16/18 08:59 01/20/18 08:39 Clindamycin HCl/ Dextrose 50 ml @ 100 mls/hr Q8H IV 01/19/18 15:00 01/26/18 14:59 01/20/18 06:10 Clonazepam (KlonoPIN) 1 mg DAILY ORAL 01/18/18 09:00 01/24/18 08:59 01/20/18 08:39 Dextrose (Dextrose 50%) 25 ml STAT PRN IV Hypoglycemia 01/17/18 14:30 02/16/18 14:29 Dextrose (Dextrose 50%) 50 ml STAT PRN IV Hypoglycemia 01/17/18 14:30 02/16/18 14:29 Haloperidol Lactate (Haldol) 5 mg Q6H PRN IM Agitation 01/17/18 14:30 02/16/18 14:29 Heparin Sodium (Porcine) (Heparin 5000 units/ml) 5,000 units EVERY 12 HOURS SUBQ 01/17/18 21:00 02/16/18 08:59 01/17/18 21:04 Insulin Aspart (NovoLOG) BEFORE MEALS AND HS SUBQ 01/17/18 16:30 02/16/18 11:29 01/19/18 16:38 Lamotrigine (LaMICtal) 100 mg TWICE A DAY ORAL 01/17/18 18:00 02/16/18 08:59 01/20/18 08:39 Nitroglycerin (Ntg) 0.4 mg Q5M PRN SL Prn Chest Pain 01/17/18 13:30 02/16/18 01:29 Ondansetron HCl (Zofran) 4 mg Q6H PRN IVP Nausea & Vomiting 01/17/18 13:30 02/16/18 01:29 Penicillin G Potassium 4 mu/ Sodium Chloride 55 ml @ 110 mls/hr Q4H IVPB 01/19/18 15:30 01/26/18 15:29 01/20/18 09:03 Polyethylene Glycol (Miralax) 17 gm DAILYPRN PRN ORAL Constipation 01/17/18 13:30 02/16/18 13:29 Quetiapine Fumarate (SEROquel) 50 mg TWICE A DAY ORAL 01/17/18 18:00 02/16/18 08:59 01/20/18 08:39 Sodium Chloride 1,000 ml @ 150 mls/hr Q6H40M IV 01/17/18 13:30 02/16/18 01:20 01/20/18 09:04 Temazepam (Restoril) 15 mg HSPRN PRN ORAL Insomnia 01/17/18 21:00 01/24/18 20:59 Jamal Mcghee MD January 20, 2018 09:19
[2018-01-20 09:38] LABS: ALANINE AMINOTRANSFERASE 115 U/L (12-78); ALBUMIN 2.7 G/DL (3.4-5.0); ALBUMIN/GLOBULIN RATIO 0.8 (1.0-2.7); ALKALINE PHOSPHATASE 54 U/L (46-116); ANION GAP 4 mmol/L (5-15); ASPARTATE AMINO TRANSFERASE 80 U/L (15-37); BILIRUBIN,TOTAL 0.7 MG/DL (0.2-1.0); BLOOD UREA NITROGEN 9 mg/dL (7-18); CALCIUM 8.5 MG/DL (8.5-10.1); CARBON DIOXIDE 30 MMOL/L (21-32); CHLORIDE 109 MMOL/L (98-107); CREATININE 0.5 MG/DL (0.55-1.30); POTASSIUM 4.1 MMOL/L (3.5-5.1); SODIUM 143 MMOL/L (136-145)
--- NOTE | 2018-01-20 11:36 | GI Progress Note ---
Assessment/Plan Problems: (1) Protein-calorie malnutrition, severe ICD Codes: E43 - Unspecified severe protein-calorie malnutrition SNOMED: 105141951 (2) Failure to thrive SNOMED: 87118777 (3) Schizophrenia ICD Codes: F20.9 - Schizophrenia, unspecified SNOMED: 63929533 (4) Betzy chorea ICD Codes: G10 - [place]'s disease SNOMED: 69463696 (5) Transaminitis ICD Codes: R74.0 - Nonspecific elevation of levels of transaminase and lactic acid dehydrogenase [LDH] SNOMED: 309892213, 786955674 Status: stable, unchanged Status Narrative Discussed with Dr. Rodriguez. Assessment/Plan abdominal U/S reviewed, see full report. >> Gallbladder sludge. No definite stones. Negative for dilated ducts hepatitis panel negative calorie count >> eating well patient passed ST evaluation, now on diet >> pending video swallow push PO ppi zofran prn prn transfusions fu labs, trend LFTs The patient was seen and examined at bedside and all new and available data was reviewed in the patients chart. I agree with the above findings, impression and plan. (Patient seen earlier today. Signature stamp does not reflect patient encounter time.). - Jabier Rodriguez MD Subjective Subjective limited Objective Last 24 Hour Vital Signs Date Time Temp Pulse Resp B/P (MAP) Pulse Ox O2 Delivery O2 Flow Rate FiO2 01/20/18 08:30 82 18 Room Air 21 01/20/18 08:00 97.9 89 22 127/71 96 Room Air 97.9 01/20/18 04:00 97.4 64 19 100/70 97 97.4 01/20/18 00:00 98.0 65 21 101/70 99 98.0 01/19/18 20:20 78 18 Room Air 21 01/19/18 20:00 Room Air 01/19/18 20:00 98.1 76 19 92/61 96 98.1 01/19/18 16:00 98.0 68 18 115/72 97 Room Air 98.0 01/19/18 12:00 98.0 68 18 114/72 95 Room Air 98.0 Intake and Output 01/19/18 01/20/18 19:00 07:00 Intake Total 800 ml 960 ml Output Total 2200 ml Balance 800 ml -1240 ml Intake Oral 600 ml IV Total 200 ml 960 ml Output Urine Total 2200 ml Laboratory Tests Test 01/20/18 06:35 White Blood Count 5.5 K/UL (4.8-10.8) Red Blood Count 4.21 M/UL (4.70-6.10) L Hemoglobin 12.8 G/DL (14.2-18.0) L Hematocrit 38.1 % (42.0-52.0) L Mean Corpuscular Volume 90 FL (80-99) Mean Corpuscular Hemoglobin 30.4 PG (27.0-31.0) Mean Corpuscular Hemoglobin Concent 33.6 G/DL (32.0-36.0) Red Cell Distribution Width 11.5 % (11.6-14.8) L Platelet Count 62 K/UL (150-450) L Mean Platelet Volume 10.7 FL (6.5-10.1) H Neutrophils (%) (Auto) % (45.0-75.0) Lymphocytes (%) (Auto) % (20.0-45.0) Monocytes (%) (Auto) % (1.0-10.0) Eosinophils (%) (Auto) % (0.0-3.0) Basophils (%) (Auto) % (0.0-2.0) Differential Total Cells Counted 100 Neutrophils % (Manual) 63 % (45-75) Lymphocytes % (Manual) 20 % (20-45) Monocytes % (Manual) 14 % (1-10) H Eosinophils % (Manual) 2 % (0-3) Basophils % (Manual) 0 % (0-2) Band Neutrophils 1 % (0-8) Platelet Estimate Decreased L Platelet Morphology Normal Red Blood Cell Morphology Normal Sodium Level 143 MMOL/L (136-145) Potassium Level 4.1 MMOL/L (3.5-5.1) Chloride Level 109 MMOL/L (98-107) H Carbon Dioxide Level 30 MMOL/L (21-32) Anion Gap 4 mmol/L (5-15) L Blood Urea Nitrogen 9 mg/dL (7-18) Creatinine 0.5 MG/DL (0.55-1.30) L Estimat Glomerular Filtration Rate > 60 mL/min (>60) Glucose Level 89 MG/DL (74-106) Calcium Level 8.5 MG/DL (8.5-10.1) Total Bilirubin 0.7 MG/DL (0.2-1.0) Aspartate Amino Transf (AST/SGOT) 80 U/L (15-37) H Alanine Aminotransferase (ALT/SGPT) 115 U/L (12-78) H Alkaline Phosphatase 54 U/L (46-116) Total Protein 6.2 G/DL (6.4-8.2) L Albumin 2.7 G/DL (3.4-5.0) L Globulin 3.5 g/dL Albumin/Globulin Ratio 0.8 (1.0-2.7) L Height (Feet): 5 Height (Inches): 7.00 Weight (Pounds): 133 General Appearance: WD/WN, no apparent distress, alert Cardiovascular: normal rate Respiratory/Chest: normal breath sounds, no respiratory distress Abdominal Exam: normal bowel sounds, non tender, soft Extremities: normal range of motion, non-tender Nicol Jacobson NP January 20, 2018 11:35
[2018-01-20 12:00] VITALS: BP 110/65
--- NOTE | 2018-01-20 12:59 | Cardiology Report ---
APPROVED REPORT EXAM: Two-dimensional and M-mode echocardiogram with Doppler and color Doppler. INDICATION Endocarditis R/O vegetation Technically difficult and limited study due to poor acoustical windows. Dextrocardia. Study quality precludes accurate assessment of regional wall motion. M-mode measurements of left ventricle not obtainable due to cardiac position (angle) Grossly normal left ventricular chamber size, systolic function and wall motion to extent visualized. Left ventricular ejection fraction estimated to be grossly normal. There appears to be mild left ventricular hypertrophy. No evidence of pericardial effusion. All other cardiac chamber sizes appears to be within normal limits. Mild focal aortic valve sclerosis with adequate cusp excursion. Mildly thickened mitral valve leaflets with normal excursion. Mild mitral annulus and aortic root calcification. Pulmonic valve not visualized. Normal tricuspid valve structure. IVC is dilated at 2.0 and slightly collapse, suggestive of increased RA pressure. No discrete vegetations seen, however SBE may not be excluded by transthoracic 2-D echo. Consider JERRY if clinically indicated. A color flow and spectral Doppler study was performed and revealed: Possible mild tricuspid regurgitation. RVSP cannot be determined.
--- NOTE | 2018-01-20 14:31 | Neurology Progress Note ---
Interim History Interim History Interim History Mr. Barrett is awake and alert today. He says he feels relatively well. He is having constant choreoathetotic movements. He is unable to tell me where he is. He says he is comfortable. He denies any new neurologic problems. Review of Systems Neuro Review of Systems Unable to obtain. Objective Physical Exam Last Vital Signs Date Time Temp Pulse Resp B/P (MAP) Pulse Ox O2 Delivery O2 Flow Rate FiO2 01/20/18 12:00 98.0 76 21 110/65 95 Room Air 98.0 01/20/18 08:30 21 Laboratory Tests Test 01/20/18 06:35 White Blood Count 5.5 K/UL (4.8-10.8) Red Blood Count 4.21 M/UL (4.70-6.10) L Hemoglobin 12.8 G/DL (14.2-18.0) L Hematocrit 38.1 % (42.0-52.0) L Mean Corpuscular Volume 90 FL (80-99) Mean Corpuscular Hemoglobin 30.4 PG (27.0-31.0) Mean Corpuscular Hemoglobin Concent 33.6 G/DL (32.0-36.0) Red Cell Distribution Width 11.5 % (11.6-14.8) L Platelet Count 62 K/UL (150-450) L Mean Platelet Volume 10.7 FL (6.5-10.1) H Neutrophils (%) (Auto) % (45.0-75.0) Lymphocytes (%) (Auto) % (20.0-45.0) Monocytes (%) (Auto) % (1.0-10.0) Eosinophils (%) (Auto) % (0.0-3.0) Basophils (%) (Auto) % (0.0-2.0) Differential Total Cells Counted 100 Neutrophils % (Manual) 63 % (45-75) Lymphocytes % (Manual) 20 % (20-45) Monocytes % (Manual) 14 % (1-10) H Eosinophils % (Manual) 2 % (0-3) Basophils % (Manual) 0 % (0-2) Band Neutrophils 1 % (0-8) Platelet Estimate Decreased L Platelet Morphology Normal Red Blood Cell Morphology Normal Sodium Level 143 MMOL/L (136-145) Potassium Level 4.1 MMOL/L (3.5-5.1) Chloride Level 109 MMOL/L (98-107) H Carbon Dioxide Level 30 MMOL/L (21-32) Anion Gap 4 mmol/L (5-15) L Blood Urea Nitrogen 9 mg/dL (7-18) Creatinine 0.5 MG/DL (0.55-1.30) L Estimat Glomerular Filtration Rate > 60 mL/min (>60) Glucose Level 89 MG/DL (74-106) Calcium Level 8.5 MG/DL (8.5-10.1) Total Bilirubin 0.7 MG/DL (0.2-1.0) Aspartate Amino Transf (AST/SGOT) 80 U/L (15-37) H Alanine Aminotransferase (ALT/SGPT) 115 U/L (12-78) H Alkaline Phosphatase 54 U/L (46-116) Total Protein 6.2 G/DL (6.4-8.2) L Albumin 2.7 G/DL (3.4-5.0) L Globulin 3.5 g/dL Albumin/Globulin Ratio 0.8 (1.0-2.7) L Neurologic Exam Objective PHYSICAL EXAMINATION: GENERAL: He is a well-developed, lean gentleman, lying in bed with constant choreoathetotic movements. HEAD: Normocephalic with multiple cranial abrasions and in addition, scalp hematomas. EENT: Examination benign. NECK: No neck rigidity was observed. NEUROLOGIC EXAMINATION: MENTAL STATUS EXAMINATION: He was awake and alert. He was oriented to self only. He had significant problems with communicating, making further mental status testing impossible. SPEECH: He had a significant dysarthria. LANGUAGE: He was able to comprehend commands of a simple nature quite well. He however had significant problems expressing himself. CRANIAL NERVE EXAMINATION: II: He was able to count fingers and he did blink to threat in all [place]. III, IV & : The external ocular movements were full and the pupils 3 mm in diameter, equal, round, regular, and reactive to light. V: He had normal facial sensations and the temporales, masseters, and pterygoids functioned normally. VII: He had normal facial expressions and no facial asymmetry. VIII: He was able to hear and had no nystagmus. IX: The palate moved symmetrically on phonation. X: He had no hoarseness of voice. XI: The sternocleidomastoids and trapezii functioned relatively well. XII: The tongue was in the midline. MOTOR SYSTEM: The tone was increased in all four extremities with a mild degree of spasticity. Examination of muscle mass revealed generalized muscle wasting. 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 SENSORY EXAMINATION: He responded appropriately to deep pain. He was unable to cooperate for the sensory modalities. REFLEXES: 1+ and bilaterally symmetrical at the biceps, triceps, brachioradialis , and knees. 0 at both ankles. The plantar responses were flexor bilaterally. COORDINATION, STANCE & GAIT: Could not be tested. ABNORMAL MOVEMENTS: He exhibited constant choreoathetotic movements involving his entire body. Impression/Recommendations Diagnostic Impression 1. Mr. Alex Barrett is a 47-year-old, gentleman, of unknown handedness , who has a past history of Betzy's disease, a psychiatric illness, and chronic obstructive pulmonary disease. He was hospitalized for an alteration in his mental state with episodic lethargy and agitation, a fever and inability to eat and drink. On being evaluated in the emergency room, he was found to have a urinary tract infection, sepsis, rhabdomyolysis, malnutrition and failure to thrive. 2. He is awake and alert today. He says he feels relatively well. He is having constant choreoathetotic movements. He is unable to tell me where he is. He says he is comfortable. He denies any new neurologic problems. 3. On neurological examination at this time, he is oriented to self only. He is unable to cooperate for further mental status testing. He is severely dysarthric and has constant choreoathetotic movements. 4. Laboratory data on admission revealed a white blood cell count elevated to 12 ,600 with a left-sided shift. His chemistry panel revealed a BUN elevated to 23 , glucose elevated to 183, a total bilirubin elevated to 1.5. AST elevated at 345, ALT elevated to 141. The CK was elevated to 11,712 and his urinalysis revealed 2+ leukocyte esterase, 60-80 red blood cells and 5-10 white blood cells per high-power field. 5. 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 He also exhibits a significant elevation in his CK compatible with rhabdomyolysis. Recommendations 1. Continue present management. 2. Keep the patient well hydrated. 3. Treatment of acute infectious process in an aggressive manner. 4. In the future if the patient's hepatic function improves, he may respond well to tetrabenazine for his choreoathetotic movements. 5. Observe closely. Joe Jarvis M.D., M.S.P.H. JOE JARVIS January 20, 2018 14:31
--- NOTE | 2018-01-20 15:06 | Pulmonology Progress Note ---
Assessment/Plan Problems: (1) Sepsis (2) COPD (chronic obstructive pulmonary disease) (3) Betzy chorea (4) Schizophrenia (5) Protein-calorie malnutrition, severe (6) Failure to thrive Assessment/Plan looks comfortable all labs and meds reviewed continue abx check cultures titrate fio2 to sat or 92% f/u with social workers effort to locate family all reviewed continue current management Subjective ROS Limited/Unobtainable: Yes Constitutional: Reports: no symptoms HEENT: Repors: no symptoms Respiratory: Reports: no symptoms Allergies: Coded Allergies: No Known Allergies (Unverified , 01/16/18) Objective Last 24 Hour Vital Signs Date Time Temp Pulse Resp B/P (MAP) Pulse Ox O2 Delivery O2 Flow Rate FiO2 01/20/18 12:00 98.0 76 21 110/65 95 Room Air 98.0 01/20/18 08:30 82 18 Room Air 21 01/20/18 08:00 97.9 89 22 127/71 96 Room Air 97.9 01/20/18 04:00 97.4 64 19 100/70 97 97.4 01/20/18 00:00 98.0 65 21 101/70 99 98.0 01/19/18 20:20 78 18 Room Air 21 01/19/18 20:00 Room Air 01/19/18 20:00 98.1 76 19 92/61 96 98.1 01/19/18 16:00 98.0 68 18 115/72 97 Room Air 98.0 Intake and Output 01/19/18 01/20/18 19:00 07:00 Intake Total 800 ml 960 ml Output Total 2200 ml Balance 800 ml -1240 ml Intake Oral 600 ml IV Total 200 ml 960 ml Output Urine Total 2200 ml General Appearance: cachetic HEENT: normocephalic, atraumatic Respiratory/Chest: chest wall non-tender, lungs clear Cardiovascular: normal peripheral pulses, regular rhythm Abdomen: normal bowel sounds, no organomegaly Genitourinary: normal external genitalia Extremities: no clubbing Skin: no rash 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 Laboratory Tests 01/20/18 06:35: White Blood Count 5.5, Red Blood Count 4.21L, Hemoglobin 12.8L, Hematocrit 38.1L , Mean Corpuscular Volume 90, Mean Corpuscular Hemoglobin 30.4, Mean Corpuscular Hemoglobin Concent 33.6, Red Cell Distribution Width 11.5L, Platelet Count 62L, Mean Platelet Volume 10.7H, Neutrophils (%) (Auto) , Lymphocytes (%) (Auto) , Monocytes (%) (Auto) , Eosinophils (%) (Auto) , Basophils (%) (Auto) , Differential Total Cells Counted 100, Neutrophils % ( Manual) 63, Lymphocytes % (Manual) 20, Monocytes % (Manual) 14H, Eosinophils % ( Manual) 2, Basophils % (Manual) 0, Band Neutrophils 1, Platelet Estimate DecreasedL, Platelet Morphology Normal, Red Blood Cell Morphology Normal, Sodium Level 143, Potassium Level 4.1, Chloride Level 109H, Carbon Dioxide Level 30, Anion Gap 4L, Blood Urea Nitrogen 9, Creatinine 0.5L, Estimat Glomerular Filtration Rate > 60, Glucose Level 89, Calcium Level 8.5, Total Bilirubin 0.7, Aspartate Amino Transf (AST/SGOT) 80H, Alanine Aminotransferase ( ALT/SGPT) 115H, Alkaline Phosphatase 54, Total Protein 6.2L, Albumin 2.7L, Globulin 3.5, Albumin/Globulin Ratio 0.8L Current Medications Medications (Trade) Dose Ordered Sig/Javi Route PRN Reason Start Time Stop Time Status Last Admin Dose Admin Acetaminophen (Tylenol) 650 mg Q4H PRN RECTAL Mild Pain/Temp > 100.5 01/17/18 14:00 02/16/18 13:59 Albuterol/ Ipratropium (Albuterol/ Ipratropium) 3 ml Q4H PRN HHN Shortness of Breath 01/17/18 13:30 01/22/18 13:29 Amantadine HCl (Symmetrel) 100 mg TWICE A DAY ORAL 01/17/18 18:00 02/16/18 08:59 01/20/18 08:39 Clindamycin HCl/ Dextrose 50 ml @ 100 mls/hr Q8H IV 01/19/18 15:00 01/26/18 14:59 01/20/18 06:10 Clonazepam (KlonoPIN) 1 mg DAILY ORAL 01/18/18 09:00 01/24/18 08:59 01/20/18 08:39 Dextrose (Dextrose 50%) 25 ml STAT PRN IV Hypoglycemia 01/17/18 14:30 02/16/18 14:29 Dextrose (Dextrose 50%) 50 ml STAT PRN IV Hypoglycemia 01/17/18 14:30 02/16/18 14:29 Haloperidol Lactate (Haldol) 5 mg Q6H PRN IM Agitation 01/17/18 14:30 02/16/18 14:29 Heparin Sodium (Porcine) (Heparin 5000 units/ml) 5,000 units EVERY 12 HOURS SUBQ 01/17/18 21:00 02/16/18 08:59 01/17/18 21:04 Insulin Aspart (NovoLOG) BEFORE MEALS AND HS SUBQ 01/17/18 16:30 02/16/18 11:29 01/20/18 12:06 Lamotrigine (LaMICtal) 100 mg TWICE A DAY ORAL 01/17/18 18:00 02/16/18 08:59 01/20/18 08:39 Nitroglycerin (Ntg) 0.4 mg Q5M PRN SL Prn Chest Pain 01/17/18 13:30 02/16/18 01:29 Ondansetron HCl (Zofran) 4 mg Q6H PRN IVP Nausea & Vomiting 01/17/18 13:30 02/16/18 01:29 Penicillin G Potassium 4 mu/ Sodium Chloride 55 ml @ 110 mls/hr Q4H IVPB 01/19/18 15:30 01/26/18 15:29 01/20/18 12:07 Polyethylene Glycol (Miralax) 17 gm DAILYPRN PRN ORAL Constipation 01/17/18 13:30 02/16/18 13:29 Quetiapine Fumarate (SEROquel) 50 mg TWICE A DAY ORAL 01/17/18 18:00 02/16/18 08:59 01/20/18 08:39 Sodium Chloride 1,000 ml @ 150 mls/hr Q6H40M IV 01/17/18 13:30 02/16/18 01:20 01/20/18 14:49 Temazepam (Restoril) 15 mg HSPRN PRN ORAL Insomnia 01/17/18 21:00 01/24/18 20:59 Annie Bryant MD January 20, 2018 15:06
--- NOTE | 2018-01-20 15:11 | General Progress Note ---
Assessment/Plan Status: stable, progressing Assessment/Plan Chiara dx mdd psychosis -haldol im -seroquel po he refused -dc sitter Subjective Date patient seen: January 20, 2018 Neurologic/Psychiatric: Reports: anxiety, depressed, emotional problems Allergies: Coded Allergies: No Known Allergies (Unverified , 01/16/18) Subjective the pt has psychomotor agitation. confused. Objective Last 24 Hour Vital Signs Date Time Temp Pulse Resp B/P (MAP) Pulse Ox O2 Delivery O2 Flow Rate FiO2 01/20/18 12:00 98.0 76 21 110/65 95 Room Air 98.0 01/20/18 08:30 82 18 Room Air 21 01/20/18 08:00 97.9 89 22 127/71 96 Room Air 97.9 01/20/18 04:00 97.4 64 19 100/70 97 97.4 01/20/18 00:00 98.0 65 21 101/70 99 98.0 01/19/18 20:20 78 18 Room Air 21 01/19/18 20:00 Room Air 01/19/18 20:00 98.1 76 19 92/61 96 98.1 01/19/18 16:00 98.0 68 18 115/72 97 Room Air 98.0 Intake and Output 01/19/18 01/20/18 19:00 07:00 Intake Total 800 ml 960 ml Output Total 2200 ml Balance 800 ml -1240 ml Intake Oral 600 ml IV Total 200 ml 960 ml Output Urine Total 2200 ml Laboratory Tests 01/20/18 06:35: White Blood Count 5.5, Red Blood Count 4.21L, Hemoglobin 12.8L, Hematocrit 38.1L , Mean Corpuscular Volume 90, Mean Corpuscular Hemoglobin 30.4, Mean Corpuscular Hemoglobin Concent 33.6, Red Cell Distribution Width 11.5L, Platelet Count 62L, Mean Platelet Volume 10.7H, Neutrophils (%) (Auto) , Lymphocytes (%) (Auto) , Monocytes (%) (Auto) , Eosinophils (%) (Auto) , Basophils (%) (Auto) , Differential Total Cells Counted 100, Neutrophils % ( Manual) 63, Lymphocytes % (Manual) 20, Monocytes % (Manual) 14H, Eosinophils % ( Manual) 2, Basophils % (Manual) 0, Band Neutrophils 1, Platelet Estimate DecreasedL, Platelet Morphology Normal, Red Blood Cell Morphology Normal, Sodium Level 143, Potassium Level 4.1, Chloride Level 109H, Carbon Dioxide Level 30, Anion Gap 4L, Blood Urea Nitrogen 9, Creatinine 0.5L, Estimat Glomerular Filtration Rate > 60, Glucose Level 89, Calcium Level 8.5, Total Bilirubin 0.7, Aspartate Amino Transf (AST/SGOT) 80H, Alanine Aminotransferase ( ALT/SGPT) 115H, Alkaline Phosphatase 54, Total Protein 6.2L, Albumin 2.7L, Globulin 3.5, Albumin/Globulin Ratio 0.8L Height (Feet): 5 Height (Inches): 7.00 Weight (Pounds): 133 General Appearance: WD/WN, no apparent distress, alert, confused, agitated Rosalinda Chew M.D. January 20, 2018 15:11
--- NOTE | 2018-01-20 15:25 | General Progress Note ---
Assessment/Plan Problem List: (1) Diabetes ICD Codes: E11.9 - Type 2 diabetes mellitus without complications SNOMED: 96269382 (2) Rhabdomyolysis ICD Codes: M62.82 - Rhabdomyolysis SNOMED: 986074680 (3) COPD (chronic obstructive pulmonary disease) ICD Codes: J44.9 - Chronic obstructive pulmonary disease, unspecified SNOMED: 74782847 (4) Betzy chorea ICD Codes: G10 - Collier's disease SNOMED: 62495316 (5) Sepsis ICD Codes: A41.9 - Sepsis, unspecified organism SNOMED: 03571215 (6) Failure to thrive SNOMED: 81466109 (7) Schizophrenia ICD Codes: F20.9 - Schizophrenia, unspecified SNOMED: 33447812 (8) Protein-calorie malnutrition, severe ICD Codes: E43 - Unspecified severe protein-calorie malnutrition SNOMED: 828651968 Status: unchanged Assessment/Plan otpt diet abx heme eval cbc bmp am dc plan if clear Subjective Constitutional: Reports: weakness Allergies: Coded Allergies: No Known Allergies (Unverified , 01/16/18) All Systems: reviewed and negative except above Subjective confused in bed Objective Last 24 Hour Vital Signs Date Time Temp Pulse Resp B/P (MAP) Pulse Ox O2 Delivery O2 Flow Rate FiO2 01/20/18 12:00 98.0 76 21 110/65 95 Room Air 98.0 01/20/18 08:30 82 18 Room Air 21 01/20/18 08:00 97.9 89 22 127/71 96 Room Air 97.9 01/20/18 04:00 97.4 64 19 100/70 97 97.4 01/20/18 00:00 98.0 65 21 101/70 99 98.0 01/19/18 20:20 78 18 Room Air 21 01/19/18 20:00 Room Air 01/19/18 20:00 98.1 76 19 92/61 96 98.1 01/19/18 16:00 98.0 68 18 115/72 97 Room Air 98.0 Intake and Output 01/19/18 01/20/18 19:00 07:00 Intake Total 800 ml 960 ml Output Total 2200 ml Balance 800 ml -1240 ml Intake Oral 600 ml IV Total 200 ml 960 ml Output Urine Total 2200 ml Laboratory Tests 01/20/18 06:35: White Blood Count 5.5, Red Blood Count 4.21L, Hemoglobin 12.8L, Hematocrit 38.1L , Mean Corpuscular Volume 90, Mean Corpuscular Hemoglobin 30.4, Mean Corpuscular Hemoglobin Concent 33.6, Red Cell Distribution Width 11.5L, Platelet Count 62L, Mean Platelet Volume 10.7H, Neutrophils (%) (Auto) , Lymphocytes (%) (Auto) , Monocytes (%) (Auto) , Eosinophils (%) (Auto) , Basophils (%) (Auto) , Differential Total Cells Counted 100, Neutrophils % ( Manual) 63, Lymphocytes % (Manual) 20, Monocytes % (Manual) 14H, Eosinophils % ( Manual) 2, Basophils % (Manual) 0, Band Neutrophils 1, Platelet Estimate DecreasedL, Platelet Morphology Normal, Red Blood Cell Morphology Normal, Sodium Level 143, Potassium Level 4.1, Chloride Level 109H, Carbon Dioxide Level 30, Anion Gap 4L, Blood Urea Nitrogen 9, Creatinine 0.5L, Estimat Glomerular Filtration Rate > 60, Glucose Level 89, Calcium Level 8.5, Total Bilirubin 0.7, Aspartate Amino Transf (AST/SGOT) 80H, Alanine Aminotransferase ( ALT/SGPT) 115H, Alkaline Phosphatase 54, Total Protein 6.2L, Albumin 2.7L, Globulin 3.5, Albumin/Globulin Ratio 0.8L Height (Feet): 5 Height (Inches): 7.00 Weight (Pounds): 133 General Appearance: lethargic, confused EENT: normal ENT inspection Neck: normal alignment Cardiovascular: normal peripheral pulses, normal rate, regular rhythm Respiratory/Chest: chest wall non-tender, decreased breath sounds Abdomen: normal bowel sounds, non tender, soft Extremities: normal inspection Edema: no edema noted Arm (L), no edema noted Arm (R), no edema noted Leg (L), no edema noted Leg (R), no edema noted Pedal (L), no edema noted Pedal (R), no edema noted Generalized Neurologic: motor weakness Skin: normal pigmentation, warm/dry Shaheed Vazquez Blue DO January 20, 2018 15:25
--- NOTE | 2018-01-20 15:38 | Nephrology Progress Note ---
Assessment/Plan Assessment 1. Acute rhabdomyolysis based on the elevated CK-MB and urine studies. 2. Possible diabetes with elevated blood sugar and ketone and glucose in the urine. 3. Proteinuria with 3+ and need to rule out causes of nephrotic range proteinuria. 4. Fever. 5. Altered mental status. Plan plan to continue ivf replace electrolyte as need it oral feeding check pre-albumin Subjective Constitutional: Reports: no symptoms HEENT: Reports: no symptoms Genitourinary: Reports: no symptoms Neurologic/Psychiatric: Reports: no symptoms Subjective no acute events Objective Objective Last 24 Hour Vital Signs Date Time Temp Pulse Resp B/P (MAP) Pulse Ox O2 Delivery O2 Flow Rate FiO2 01/20/18 12:00 98.0 76 21 110/65 95 Room Air 98.0 01/20/18 08:30 82 18 Room Air 21 01/20/18 08:00 97.9 89 22 127/71 96 Room Air 97.9 01/20/18 04:00 97.4 64 19 100/70 97 97.4 01/20/18 00:00 98.0 65 21 101/70 99 98.0 01/19/18 20:20 78 18 Room Air 21 01/19/18 20:00 Room Air 01/19/18 20:00 98.1 76 19 92/61 96 98.1 01/19/18 16:00 98.0 68 18 115/72 97 Room Air 98.0 Intake and Output 01/19/18 01/20/18 19:00 07:00 Intake Total 800 ml 960 ml Output Total 2200 ml Balance 800 ml -1240 ml Intake Oral 600 ml IV Total 200 ml 960 ml Output Urine Total 2200 ml Laboratory Tests 01/20/18 06:35: White Blood Count 5.5, Red Blood Count 4.21L, Hemoglobin 12.8L, Hematocrit 38.1L , Mean Corpuscular Volume 90, Mean Corpuscular Hemoglobin 30.4, Mean Corpuscular Hemoglobin Concent 33.6, Red Cell Distribution Width 11.5L, Platelet Count 62L, Mean Platelet Volume 10.7H, Neutrophils (%) (Auto) , Lymphocytes (%) (Auto) , Monocytes (%) (Auto) , Eosinophils (%) (Auto) , Basophils (%) (Auto) , Differential Total Cells Counted 100, Neutrophils % ( Manual) 63, Lymphocytes % (Manual) 20, Monocytes % (Manual) 14H, Eosinophils % ( Manual) 2, Basophils % (Manual) 0, Band Neutrophils 1, Platelet Estimate DecreasedL, Platelet Morphology Normal, Red Blood Cell Morphology Normal, Sodium Level 143, Potassium Level 4.1, Chloride Level 109H, Carbon Dioxide Level 30, Anion Gap 4L, Blood Urea Nitrogen 9, Creatinine 0.5L, Estimat Glomerular Filtration Rate > 60, Glucose Level 89, Calcium Level 8.5, Total Bilirubin 0.7, Aspartate Amino Transf (AST/SGOT) 80H, Alanine Aminotransferase ( ALT/SGPT) 115H, Alkaline Phosphatase 54, Total Protein 6.2L, Albumin 2.7L, Globulin 3.5, Albumin/Globulin Ratio 0.8L Height (Feet): 5 Height (Inches): 7.00 Weight (Pounds): 133 Objective HEAD AND NECK: He has multiple lesions on his forehead on the right side, which seems to be scratches, but also may represent possible herpes infection. Mucous membrane are dry. The patient has bitemporal wasting. Sclerae are icteric. Head is normocephalic and atraumatic. LUNGS: Clear to auscultation. CARDIAC: Regular rate and rhythm. S1 and S2. No murmur. No rub. ABDOMEN: Soft, nontender, and nondistended. EXTREMITIES: Has scratch on his right knee. Otherwise, no edema, no clubbing, and no cyanosis. GENITOURINARY: Mckeon catheter is draining a dark color urine, otherwise negative. Sary Acuña MD January 20, 2018 15:38
[2018-01-20 16:00] VITALS: BP 107/64
--- NOTE | 2018-01-20 17:04 | Cardiology Progress Note ---
Assessment/Plan Assessment/Plan 1. Sinus tachycardia, resolved ikely secondary to severe hypovolemia and sepsis , responding well to ABx and hydration. 2. History of COPD. Chest x-ray shows normal cardiac silhouette with no acute cardiopulmonary disease. 2D echo reveals normal LV systolic function with LVEF at 50%. Subjective Subjective Not on the telemetry unit. Not verbally communicating. Objective Last 24 Hour Vital Signs Date Time Temp Pulse Resp B/P (MAP) Pulse Ox O2 Delivery O2 Flow Rate FiO2 01/20/18 16:00 98.4 77 19 107/64 97 Room Air 98.4 01/20/18 12:00 98.0 76 21 110/65 95 Room Air 98.0 01/20/18 08:30 82 18 Room Air 21 01/20/18 08:00 97.9 89 22 127/71 96 Room Air 97.9 01/20/18 04:00 97.4 64 19 100/70 97 97.4 01/20/18 00:00 98.0 65 21 101/70 99 98.0 01/19/18 20:20 78 18 Room Air 21 01/19/18 20:00 Room Air 01/19/18 20:00 98.1 76 19 92/61 96 98.1 Intake and Output 01/19/18 01/20/18 19:00 07:00 Intake Total 800 ml 960 ml Output Total 2200 ml Balance 800 ml -1240 ml Intake Oral 600 ml IV Total 200 ml 960 ml Output Urine Total 2200 ml 2D Echo: LVEF 50%, limited study. Laboratory Tests Test 01/20/18 06:35 White Blood Count 5.5 K/UL (4.8-10.8) Red Blood Count 4.21 M/UL (4.70-6.10) L Hemoglobin 12.8 G/DL (14.2-18.0) L Hematocrit 38.1 % (42.0-52.0) L Mean Corpuscular Volume 90 FL (80-99) Mean Corpuscular Hemoglobin 30.4 PG (27.0-31.0) Mean Corpuscular Hemoglobin Concent 33.6 G/DL (32.0-36.0) Red Cell Distribution Width 11.5 % (11.6-14.8) L Platelet Count 62 K/UL (150-450) L Mean Platelet Volume 10.7 FL (6.5-10.1) H Neutrophils (%) (Auto) % (45.0-75.0) Lymphocytes (%) (Auto) % (20.0-45.0) Monocytes (%) (Auto) % (1.0-10.0) Eosinophils (%) (Auto) % (0.0-3.0) Basophils (%) (Auto) % (0.0-2.0) Differential Total Cells Counted 100 Neutrophils % (Manual) 63 % (45-75) Lymphocytes % (Manual) 20 % (20-45) Monocytes % (Manual) 14 % (1-10) H Eosinophils % (Manual) 2 % (0-3) Basophils % (Manual) 0 % (0-2) Band Neutrophils 1 % (0-8) Platelet Estimate Decreased L Platelet Morphology Normal Red Blood Cell Morphology Normal Sodium Level 143 MMOL/L (136-145) Potassium Level 4.1 MMOL/L (3.5-5.1) Chloride Level 109 MMOL/L (98-107) H Carbon Dioxide Level 30 MMOL/L (21-32) Anion Gap 4 mmol/L (5-15) L Blood Urea Nitrogen 9 mg/dL (7-18) Creatinine 0.5 MG/DL (0.55-1.30) L Estimat Glomerular Filtration Rate > 60 mL/min (>60) Glucose Level 89 MG/DL (74-106) Calcium Level 8.5 MG/DL (8.5-10.1) Total Bilirubin 0.7 MG/DL (0.2-1.0) Aspartate Amino Transf (AST/SGOT) 80 U/L (15-37) H Alanine Aminotransferase (ALT/SGPT) 115 U/L (12-78) H Alkaline Phosphatase 54 U/L (46-116) Total Protein 6.2 G/DL (6.4-8.2) L Albumin 2.7 G/DL (3.4-5.0) L Globulin 3.5 g/dL Albumin/Globulin Ratio 0.8 (1.0-2.7) L Objective HEENT: Atraumatic and normocephalic. Anicteric. Bitemporal wasting. There is dry mucosal membrane. Pupils are equal, round, and reactive to light and accommodation. Extraocular muscles intact. NECK: JVP less than 5 cm. No carotid bruit. Carotid upstrokes 2+ bilaterally. CARDIOVASCULAR: Normal S1 and S2. Regular rate and rhythm. Tachycardic. No murmurs, gallops, or rubs. PMI is at fourth intercostal space in the midclavicular line. LUNGS: Clear to auscultation bilaterally. ABDOMEN: Soft, nontender, and nondistended. No hepatosplenomegaly. Positive bowel sounds. EXTREMITIES: No evidence of edema, clubbing, or cyanosis. José Luis Costa MD January 20, 2018 17:04
[2018-01-20 20:00] VITALS: BP 114/67
[2018-01-21] MEDS: SODIUM CHLORIDE IVPB SCH ×12 (03:51→23:47)
[2018-01-21] MEDS: [UNRECOGNIZED DRUG - OTHER] IVPB SCH ×12 (03:51→23:47)
[2018-01-21 04:00] VITALS: BP 119/72
[2018-01-21] MEDS: NovoLOG Insulin Flexpen SUBQ SCH ×4 (06:15→21:29)
--- NOTE | 2018-01-21 07:25 | Pulmonology Progress Note ---
Assessment/Plan Assessment/Plan ASSESSMENT Sepsis with Bacteremia with Strep Pyogenes group A COPD Betzy chorea transaminitis Severe protein calorie malnutrition Schizophrenia Diabetes mellitus Anemia Prerenal azotemia with contracted alkalosis, likely secondary to intravascular volume depletion Dehydration Sinus tachycardia likely likely secondary to sepsis and severe hypovolemia Acute rhabdomyolysis Acute encephalopathy due to infectious process and dehydration Psychosis Major depressive disorder Thrombocytopenia, new onset Anemia of chronic disease PLAN OF CARE Med Surg floor Antibiotics, ID follows Blood culture initially positive for Strep pyogenes group A, repeated blood culture negative echocardiogram revealed normal left ventricular chamber size, Left ventricular ejection fraction estimated to be grossly normal no evidence of pericardial effusion ,no evidence discrete vegetation seen leukocytosis and fever resolved abdominal ultrasound revealed gallbladder sludge, no dilated bile ducts, no stones . Chest X-Ray -No Acute Intracranial Cardiopulmonary Pathology IV Fluids , decrease rate Sheet Cutting Operator Follows Renal Parameters , Electrolytes Closely Monitored, Electrolytes Replaced As Needed Renal Parameters Stable, Avoid Nephrotoxic check CK in am dc Mckeon Supplemental Oxygen As Needed to Keep Pulse Oximetry above 92%, Pulmonary Toilet as Needed Resident Care Coordinator Follows Sinus Tachycardia Was Likely Due To Sepsis and Severe Dehydration ,Resolved Neurologist Follows , patient had Superimposed Encephalopathy Due To Infectious Process and Dehydration Recommended to Keep Well-Hydrated LFT Closely Monitored, Trending down Neurologist Recommended Consider Tetrabenazine for Chorea movements when LFT Stable GI Follows Passed swallow evaluation ,Calorie Count ,Push oral Fluids PPI Antiemetics When Necessary H&H Remain at the Baseline New-Onset Thrombocytopenia Noted Molecular Modeler Follows Hepatitis Panel Negative, HIV Status Negative per Molecular Modeler thrombocytopenia Possibly Related to Infectious Process, Closely Monitor counts, Avoid Medications that could potentially cause low PLT DVT Prophylaxis Bowel Regimen PT/ OT Blood Sugar Management with Sliding Scale Insulin case discussed and evaluated by supervising physician Subjective Allergies: Coded Allergies: No Known Allergies (Unverified , 01/16/18) Subjective afebrile, leukocytosis resolved, No seizure activities No signs of respiratory distress Objective Last 24 Hour Vital Signs Date Time Temp Pulse Resp B/P (MAP) Pulse Ox O2 Delivery O2 Flow Rate FiO2 01/21/18 04:00 97.5 60 18 119/72 98 Room Air 97.5 01/20/18 20:00 98.5 82 18 114/67 100 Room Air 98.5 01/20/18 16:00 98.4 77 19 107/64 97 Room Air 98.4 01/20/18 12:00 98.0 76 21 110/65 95 Room Air 98.0 01/20/18 08:30 82 18 Room Air 21 01/20/18 08:00 97.9 89 22 127/71 96 Room Air 97.9 Intake and Output 01/20/18 01/21/18 19:00 07:00 Intake Total 600 ml 1350 ml Output Total 1400 ml 1300 ml Balance -800 ml 50 ml Intake Oral 600 ml IV Total 1350 ml Output Urine Total 1400 ml 1300 ml # Bowel Movements 2 General Appearance: no acute distress HEENT: normocephalic, atraumatic Respiratory/Chest: lungs clear, no respiratory distress Cardiovascular: normal peripheral pulses, normal rate, no JVD Abdomen: normal bowel sounds, soft, non tender Extremities: no edema Neurologic/Psychiatric: abnormal gait Musculoskeletal: atrophy - BLE Current Medications Medications (Trade) Dose Ordered Sig/Javi Route PRN Reason Start Time Stop Time Status Last Admin Dose Admin Acetaminophen (Tylenol) 650 mg Q4H PRN RECTAL Mild Pain/Temp > 100.5 01/17/18 14:00 02/16/18 13:59 Albuterol/ Ipratropium (Albuterol/ Ipratropium) 3 ml Q4H PRN HHN Shortness of Breath 01/17/18 13:30 01/22/18 13:29 Amantadine HCl (Symmetrel) 100 mg TWICE A DAY ORAL 01/17/18 18:00 02/16/18 08:59 01/20/18 17:29 Clindamycin HCl/ Dextrose 50 ml @ 100 mls/hr Q8H IV 01/19/18 15:00 01/26/18 14:59 01/21/18 06:16 Clonazepam (KlonoPIN) 1 mg DAILY ORAL 01/18/18 09:00 01/24/18 08:59 01/20/18 08:39 Dextrose (Dextrose 50%) 25 ml STAT PRN IV Hypoglycemia 01/17/18 14:30 02/16/18 14:29 Dextrose (Dextrose 50%) 50 ml STAT PRN IV Hypoglycemia 01/17/18 14:30 02/16/18 14:29 Haloperidol Lactate (Haldol) 5 mg Q6H PRN IM Agitation 01/17/18 14:30 02/16/18 14:29 Heparin Sodium (Porcine) (Heparin 5000 units/ml) 5,000 units EVERY 12 HOURS SUBQ 5/15/18 21:00 02/16/18 08:59 01/17/18 21:04 Insulin Aspart (NovoLOG) BEFORE MEALS AND HS SUBQ 01/17/18 16:30 02/16/18 11:29 01/21/18 06:15 Lamotrigine (LaMICtal) 100 mg TWICE A DAY ORAL 01/17/18 18:00 02/16/18 08:59 01/20/18 17:29 Nitroglycerin (Ntg) 0.4 mg Q5M PRN SL Prn Chest Pain 01/17/18 13:30 02/16/18 01:29 Ondansetron HCl (Zofran) 4 mg Q6H PRN IVP Nausea & Vomiting 01/17/18 13:30 02/16/18 01:29 Penicillin G Potassium 4 mu/ Sodium Chloride 55 ml @ 110 mls/hr Q4H IVPB 01/19/18 15:30 01/26/18 15:29 01/21/18 03:51 Polyethylene Glycol (Miralax) 17 gm DAILYPRN PRN ORAL Constipation 01/17/18 13:30 02/16/18 13:29 Quetiapine Fumarate (SEROquel) 50 mg TWICE A DAY ORAL 01/17/18 18:00 02/16/18 08:59 01/20/18 17:29 Sodium Chloride 1,000 ml @ 150 mls/hr Q6H40M IV 01/17/18 13:30 02/16/18 01:20 01/21/18 04:12 Temazepam (Restoril) 15 mg HSPRN PRN ORAL Insomnia 01/17/18 21:00 01/24/18 20:59 01/21/18 01:45 Lorraine Moreno NP January 21, 2018 07:25
[2018-01-21] MEDS: Heparin 5000 units/ml inj SUBQ SCH ×2 (07:53→21:00)
[2018-01-21] MEDS: Amantadine 100mg cap ORAL SCH ×2 (07:53→17:17)
[2018-01-21 08:00] VITALS: BP 92/73
[2018-01-21 08:39] LABS: HEMATOCRIT 36.1 % (42.0-52.0); HEMOGLOBIN 12.4 G/DL (14.2-18.0); MEAN CORPUSCULAR VOLUME 90 FL (80-99); PLATELET COUNT 89 K/UL (150-450); RED BLOOD COUNT 4.01 M/UL (4.70-6.10); WHITE BLOOD COUNT 6.5 K/UL (4.8-10.8)
[2018-01-21 08:56] LABS: ANION GAP 4 mmol/L (5-15); BLOOD UREA NITROGEN 7 mg/dL (7-18); CALCIUM 8.7 MG/DL (8.5-10.1); CARBON DIOXIDE 32 MMOL/L (21-32); CHLORIDE 108 MMOL/L (98-107); CREATININE 0.5 MG/DL (0.55-1.30); POTASSIUM 4.1 MMOL/L (3.5-5.1); SODIUM 143 MMOL/L (136-145)
--- NOTE | 2018-01-21 08:56 | General Progress Note ---
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 >> Gallbladder sludge. No definite stones. Negative for dilated ducts hepatitis panel negative calorie count >> eating well patient passed ST evaluation, now on diet ppi zofran prn prn transfusions fu labs, trend LFTs>>> improving Subjective ROS Limited/Unobtainable: Yes Allergies: Coded Allergies: No Known Allergies (Unverified , 01/16/18) Subjective no event Objective Last 24 Hour Vital Signs Date Time Temp Pulse Resp B/P (MAP) Pulse Ox O2 Delivery O2 Flow Rate FiO2 01/21/18 08:00 97.7 55 20 92/73 95 Room Air 97.7 01/21/18 07:45 75 18 Room Air 21 01/21/18 04:00 97.5 60 18 119/72 98 Room Air 97.5 01/20/18 20:00 98.5 82 18 114/67 100 Room Air 98.5 01/20/18 16:00 98.4 77 19 107/64 97 Room Air 98.4 01/20/18 12:00 98.0 76 21 110/65 95 Room Air 98.0 Intake and Output 01/20/18 01/21/18 19:00 07:00 Intake Total 600 ml 1800 ml Output Total 1400 ml 1300 ml Balance -800 ml 500 ml Intake Oral 600 ml IV Total 1800 ml Output Urine Total 1400 ml 1300 ml # Bowel Movements 2 Laboratory Tests 01/21/18 08:00: White Blood Count 6.5, Red Blood Count 4.01L, Hemoglobin 12.4L, Hematocrit 36.1L , Mean Corpuscular Volume 90, Mean Corpuscular Hemoglobin 30.8, Mean Corpuscular Hemoglobin Concent 34.2, Red Cell Distribution Width 11.0L, Platelet Count 89L, Mean Platelet Volume 9.6, Neutrophils (%) (Auto) , Lymphocytes (%) (Auto) , Monocytes (%) (Auto) , Eosinophils (%) (Auto) , Basophils (%) (Auto) , Neutrophils % (Manual) [Pending], Lymphocytes % (Manual) [Pending], Platelet Estimate [Pending], Platelet Morphology [Pending], Sodium Level [Pending], Potassium Level [Pending], Chloride Level [Pending], Carbon Dioxide Level [Pending], Blood Urea Nitrogen [Pending], Creatinine [Pending], Estimat Glomerular Filtration Rate [Pending], Glucose Level [Pending], Calcium Level [Pending] Height (Feet): 5 Height (Inches): 7.00 Weight (Pounds): 132 General Appearance: no apparent distress EENT: normal ENT inspection Neck: supple Cardiovascular: normal rate Respiratory/Chest: decreased breath sounds Abdomen: normal bowel sounds, non tender, soft Extremities: non-tender Jabier Rodriguez MD January 21, 2018 08:56
--- NOTE | 2018-01-21 10:55 | General Progress Note ---
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 SNOMED: 35826138 (5) Sepsis ICD Codes: A41.9 - Sepsis, unspecified organism SNOMED: 92092149 (6) Failure to thrive SNOMED: 55068668 (7) Schizophrenia ICD Codes: F20.9 - Schizophrenia, unspecified SNOMED: 22133840 (8) Protein-calorie malnutrition, severe ICD Codes: E43 - Unspecified severe protein-calorie malnutrition SNOMED: 030463164 Status: unchanged Assessment/Plan otpt diet abx heme eval cbc bmp am dc plan if clear Subjective Constitutional: Reports: weakness Allergies: Coded Allergies: No Known Allergies (Unverified , 01/16/18) All Systems: reviewed and negative except above Subjective confused in bed Objective Last 24 Hour Vital Signs Date Time Temp Pulse Resp B/P (MAP) Pulse Ox O2 Delivery O2 Flow Rate FiO2 01/21/18 08:00 97.7 55 20 92/73 95 Room Air 97.7 01/21/18 07:45 75 18 Room Air 21 01/21/18 04:00 97.5 60 18 119/72 98 Room Air 97.5 01/20/18 20:00 98.5 82 18 114/67 100 Room Air 98.5 01/20/18 16:00 98.4 77 19 107/64 97 Room Air 98.4 01/20/18 12:00 98.0 76 21 110/65 95 Room Air 98.0 Intake and Output 01/20/18 01/21/18 19:00 07:00 Intake Total 600 ml 1800 ml Output Total 1400 ml 1300 ml Balance -800 ml 500 ml Intake Oral 600 ml IV Total 1800 ml Output Urine Total 1400 ml 1300 ml # Bowel Movements 2 Laboratory Tests 01/21/18 08:00: White Blood Count 6.5, Red Blood Count 4.01L, Hemoglobin 12.4L, Hematocrit 36.1L , Mean Corpuscular Volume 90, Mean Corpuscular Hemoglobin 30.8, Mean Corpuscular Hemoglobin Concent 34.2, Red Cell Distribution Width 11.0L, Platelet Count 89L, Mean Platelet Volume 9.6, Neutrophils (%) (Auto) , Lymphocytes (%) (Auto) , Monocytes (%) (Auto) , Eosinophils (%) (Auto) , Basophils (%) (Auto) , Neutrophils % (Manual) [Pending], Lymphocytes % (Manual) [Pending], Platelet Estimate [Pending], Platelet Morphology [Pending], Sodium Level 143, Potassium Level 4.1, Chloride Level 108H, Carbon Dioxide Level 32, Anion Gap 4L, Blood Urea Nitrogen 7, Creatinine 0.5L, Estimat Glomerular Filtration Rate > 60, Glucose Level 110H, Calcium Level 8.7 Height (Feet): 5 Height (Inches): 7.00 Weight (Pounds): 132 General Appearance: lethargic, confused EENT: normal ENT inspection Neck: normal alignment Cardiovascular: normal peripheral pulses, normal rate, regular rhythm Respiratory/Chest: chest wall non-tender, lungs clear, normal breath sounds Abdomen: normal bowel sounds, non tender, soft Extremities: normal inspection Edema: no edema noted Arm (L), no edema noted Arm (R), no edema noted Leg (L), no edema noted Leg (R), no edema noted Pedal (L), no edema noted Pedal (R), no edema noted Generalized Neurologic: motor weakness Skin: normal pigmentation, warm/dry Shaheed VazquezAndra DO January 21, 2018 10:55
--- NOTE | 2018-01-21 11:12 | Infectious Diseases Prog Note ---
Assessment/Plan Assessment/Plan ASSESSMENT: The patient is a 47-year-old male with: Fever, SP Leukocytosis, SP Bacteremia StrpGrA ? source (rule out endocarditis ) 2DEcho : no Veg Transaminitis, improving Hepatitis panel : Neg US : Gallbladder sludge. No definite stones. Negative for dilated ducts, Borderline splenomegaly Chest x-ray, no acute process. HIV neg Afton disease. Schizophrenia. Diabetes. COPD. Failure to thrive. Anxiety. Anemia. PLAN: on PCN/G and Clinda d# 3 / ( upon improvement will change to Rocephin / or oral Amoxi to complete the course ) 01/19 IV vancomycin d# 3 Monitor CBC. Monitor BMP. Rec JERRY ( as there is no source for bacteremia ) Monitor chest x-ray. Subjective Constitutional: Denies: no symptoms, fever, chills, fatigue, anorexia, drenching sweats, other Allergies: Coded Allergies: No Known Allergies (Unverified , 01/16/18) Subjective Afebrile Objective Vital Signs Last 24 Hour Vital Signs Date Time Temp Pulse Resp B/P (MAP) Pulse Ox O2 Delivery O2 Flow Rate FiO2 01/21/18 08:00 97.7 55 20 92/73 95 Room Air 97.7 01/21/18 07:45 75 18 Room Air 21 01/21/18 04:00 97.5 60 18 119/72 98 Room Air 97.5 01/20/18 20:00 98.5 82 18 114/67 100 Room Air 98.5 01/20/18 16:00 98.4 77 19 107/64 97 Room Air 98.4 01/20/18 12:00 98.0 76 21 110/65 95 Room Air 98.0 Height (Feet): 5 Height (Inches): 7.00 Weight (Pounds): 132 HEENT: atraumatic Respiratory/Chest: no accessory muscle use Cardiovascular: normal rate Abdomen: non distended Laboratory Tests Test 01/21/18 08:00 White Blood Count 6.5 K/UL (4.8-10.8) Red Blood Count 4.01 M/UL (4.70-6.10) L Hemoglobin 12.4 G/DL (14.2-18.0) L Hematocrit 36.1 % (42.0-52.0) L Mean Corpuscular Volume 90 FL (80-99) Mean Corpuscular Hemoglobin 30.8 PG (27.0-31.0) Mean Corpuscular Hemoglobin Concent 34.2 G/DL (32.0-36.0) Red Cell Distribution Width 11.0 % (11.6-14.8) L Platelet Count 89 K/UL (150-450) L Mean Platelet Volume 9.6 FL (6.5-10.1) Neutrophils (%) (Auto) % (45.0-75.0) Lymphocytes (%) (Auto) % (20.0-45.0) Monocytes (%) (Auto) % (1.0-10.0) Eosinophils (%) (Auto) % (0.0-3.0) Basophils (%) (Auto) % (0.0-2.0) Differential Total Cells Counted 100 Neutrophils % (Manual) 65 % (45-75) Lymphocytes % (Manual) 25 % (20-45) Monocytes % (Manual) 9 % (1-10) Eosinophils % (Manual) 1 % (0-3) Basophils % (Manual) 0 % (0-2) Band Neutrophils 0 % (0-8) Platelet Estimate Decreased L Platelet Morphology Normal Red Blood Cell Morphology Normal Sodium Level 143 MMOL/L (136-145) Potassium Level 4.1 MMOL/L (3.5-5.1) Chloride Level 108 MMOL/L (98-107) H Carbon Dioxide Level 32 MMOL/L (21-32) Anion Gap 4 mmol/L (5-15) L Blood Urea Nitrogen 7 mg/dL (7-18) Creatinine 0.5 MG/DL (0.55-1.30) L Estimat Glomerular Filtration Rate > 60 mL/min (>60) Glucose Level 110 MG/DL (74-106) H Calcium Level 8.7 MG/DL (8.5-10.1) Current Medications Medications (Trade) Dose Ordered Sig/Javi Route PRN Reason Start Time Stop Time Status Last Admin Dose Admin Acetaminophen (Tylenol) 650 mg Q4H PRN RECTAL Mild Pain/Temp > 100.5 01/17/18 14:00 02/16/18 13:59 Albuterol/ Ipratropium (Albuterol/ Ipratropium) 3 ml Q4H PRN HHN Shortness of Breath 01/17/18 13:30 01/22/18 13:29 Amantadine HCl (Symmetrel) 100 mg TWICE A DAY ORAL 01/17/18 18:00 02/16/18 08:59 01/21/18 07:53 Clindamycin HCl/ Dextrose 50 ml @ 100 mls/hr Q8H IV 01/19/18 15:00 01/26/18 14:59 01/21/18 06:16 Clonazepam (KlonoPIN) 1 mg DAILY ORAL 01/18/18 09:00 01/24/18 08:59 01/21/18 07:53 Dextrose (Dextrose 50%) 25 ml STAT PRN IV Hypoglycemia 01/17/18 14:30 02/16/18 14:29 Dextrose (Dextrose 50%) 50 ml STAT PRN IV Hypoglycemia 01/17/18 14:30 02/16/18 14:29 Haloperidol Lactate (Haldol) 5 mg Q6H PRN IM Agitation 01/17/18 14:30 02/16/18 14:29 Heparin Sodium (Porcine) (Heparin 5000 units/ml) 5,000 units EVERY 12 HOURS SUBQ 01/17/18 21:00 02/16/18 08:59 01/17/18 21:04 Insulin Aspart (NovoLOG) BEFORE MEALS AND HS SUBQ 01/17/18 16:30 02/16/18 11:29 01/21/18 06:15 Lamotrigine (LaMICtal) 100 mg TWICE A DAY ORAL 01/17/18 18:00 02/16/18 08:59 01/21/18 07:53 Nitroglycerin (Ntg) 0.4 mg Q5M PRN SL Prn Chest Pain 01/17/18 13:30 02/16/18 01:29 Ondansetron HCl (Zofran) 4 mg Q6H PRN IVP Nausea & Vomiting 01/17/18 13:30 02/16/18 01:29 Penicillin G Potassium 4 mu/ Sodium Chloride 55 ml @ 110 mls/hr Q4H IVPB 01/19/18 15:30 01/26/18 15:29 01/21/18 07:52 Polyethylene Glycol (Miralax) 17 gm DAILYPRN PRN ORAL Constipation 01/17/18 13:30 02/16/18 13:29 Quetiapine Fumarate (SEROquel) 50 mg TWICE A DAY ORAL 01/17/18 18:00 02/16/18 08:59 01/21/18 07:53 Sodium Chloride 1,000 ml @ 150 mls/hr Q6H40M IV 01/17/18 13:30 02/16/18 01:20 01/21/18 04:12 Temazepam (Restoril) 15 mg HSPRN PRN ORAL Insomnia 01/17/18 21:00 01/24/18 20:59 01/21/18 01:45 Jamal Mcghee MD January 21, 2018 11:12
[2018-01-21 12:00] VITALS: BP 108/75
--- NOTE | 2018-01-21 12:31 | General Progress Note ---
Assessment/Plan Status: stable Assessment/Plan 1. Thrombocytopenia, new onset, potentially secondary to underlying infection, cocci noted. ==> could be also due to antibiotics, vanc, thus closely monitor if worse, consider change abx --> Hepatitis panel and human immunodeficiency virus are negative 3. Anemia due to underlying chronic disease. Continue to closely monitor. 4. Shortness of breath, potentially secondary to chronic obstructive pulmonary disease exacerbation. 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 6. Schizophrenia. Evaluation by Psychiatry team. 7. Protein-calorie malnutrition, which is severe. 8. Failure to thrive. Closely monitor, potentially secondary to mental disorder in addition to chronic medical conditions. Subjective Date patient seen: January 20, 2018 Allergies: Coded Allergies: No Known Allergies (Unverified , 01/16/18) All Systems: reviewed and negative except above Subjective Pt is awake and in bed, responds to vernal stimuli. No s/s of acute medical distress Objective Last 24 Hour Vital Signs Date Time Temp Pulse Resp B/P (MAP) Pulse Ox O2 Delivery O2 Flow Rate FiO2 01/21/18 08:00 97.7 55 20 92/73 95 Room Air 97.7 01/21/18 07:45 75 18 Room Air 21 01/21/18 04:00 97.5 60 18 119/72 98 Room Air 97.5 01/20/18 20:00 98.5 82 18 114/67 100 Room Air 98.5 01/20/18 16:00 98.4 77 19 107/64 97 Room Air 98.4 Intake and Output 01/20/18 01/21/18 19:00 07:00 Intake Total 600 ml 1800 ml Output Total 1400 ml 1300 ml Balance -800 ml 500 ml Intake Oral 600 ml IV Total 1800 ml Output Urine Total 1400 ml 1300 ml # Bowel Movements 2 Laboratory Tests 01/21/18 08:00: White Blood Count 6.5, Red Blood Count 4.01L, Hemoglobin 12.4L, Hematocrit 36.1L , Mean Corpuscular Volume 90, Mean Corpuscular Hemoglobin 30.8, Mean Corpuscular Hemoglobin Concent 34.2, Red Cell Distribution Width 11.0L, Platelet Count 89L, Mean Platelet Volume 9.6, Neutrophils (%) (Auto) , Lymphocytes (%) (Auto) , Monocytes (%) (Auto) , Eosinophils (%) (Auto) , Basophils (%) (Auto) , Differential Total Cells Counted 100, Neutrophils % ( Manual) 65, Lymphocytes % (Manual) 25, Monocytes % (Manual) 9, Eosinophils % ( Manual) 1, Basophils % (Manual) 0, Band Neutrophils 0, Platelet Estimate DecreasedL, Platelet Morphology Normal, Red Blood Cell Morphology Normal, Sodium Level 143, Potassium Level 4.1, Chloride Level 108H, Carbon Dioxide Level 32, Anion Gap 4L, Blood Urea Nitrogen 7, Creatinine 0.5L, Estimat Glomerular Filtration Rate > 60, Glucose Level 110H, Calcium Level 8.7 Height (Feet): 5 Height (Inches): 7.00 Weight (Pounds): 132 General Appearance: no apparent distress EENT: normal ENT inspection Neck: supple Cardiovascular: normal rate Respiratory/Chest: chest wall non-tender Kirt Aragon MD January 21, 2018 12:31
[2018-01-21] MEDS ORDERED: Albuterol/Ipratropium 3ml neb HHN PRN (14:00)
--- NOTE | 2018-01-21 14:07 | Neurology Progress Note ---
Interim History Interim History Interim History Mr. Barrett is awake and alert today. He says he feels relatively well. He is having constant choreoathetotic movements. He is unable to tell me where he is. He says he is comfortable. He denies any new neurologic problems. Review of Systems Neuro Review of Systems Unable to obtain. Objective Physical Exam Last Vital Signs Date Time Temp Pulse Resp B/P (MAP) Pulse Ox O2 Delivery O2 Flow Rate FiO2 01/21/18 12:00 97.3 70 20 108/75 96 Room Air 97.3 01/21/18 07:45 21 Laboratory Tests Test 01/21/18 08:00 White Blood Count 6.5 K/UL (4.8-10.8) Red Blood Count 4.01 M/UL (4.70-6.10) L Hemoglobin 12.4 G/DL (14.2-18.0) L Hematocrit 36.1 % (42.0-52.0) L Mean Corpuscular Volume 90 FL (80-99) Mean Corpuscular Hemoglobin 30.8 PG (27.0-31.0) Mean Corpuscular Hemoglobin Concent 34.2 G/DL (32.0-36.0) Red Cell Distribution Width 11.0 % (11.6-14.8) L Platelet Count 89 K/UL (150-450) L Mean Platelet Volume 9.6 FL (6.5-10.1) Neutrophils (%) (Auto) % (45.0-75.0) Lymphocytes (%) (Auto) % (20.0-45.0) Monocytes (%) (Auto) % (1.0-10.0) Eosinophils (%) (Auto) % (0.0-3.0) Basophils (%) (Auto) % (0.0-2.0) Differential Total Cells Counted 100 Neutrophils % (Manual) 65 % (45-75) Lymphocytes % (Manual) 25 % (20-45) Monocytes % (Manual) 9 % (1-10) Eosinophils % (Manual) 1 % (0-3) Basophils % (Manual) 0 % (0-2) Band Neutrophils 0 % (0-8) Platelet Estimate Decreased L Platelet Morphology Normal Red Blood Cell Morphology Normal Sodium Level 143 MMOL/L (136-145) Potassium Level 4.1 MMOL/L (3.5-5.1) Chloride Level 108 MMOL/L (98-107) H Carbon Dioxide Level 32 MMOL/L (21-32) Anion Gap 4 mmol/L (5-15) L Blood Urea Nitrogen 7 mg/dL (7-18) Creatinine 0.5 MG/DL (0.55-1.30) L Estimat Glomerular Filtration Rate > 60 mL/min (>60) Glucose Level 110 MG/DL (74-106) H Calcium Level 8.7 MG/DL (8.5-10.1) Neurologic Exam Objective PHYSICAL EXAMINATION: GENERAL: He is a well-developed, lean gentleman, lying in bed with constant choreoathetotic movements. HEAD: Normocephalic with multiple cranial abrasions and in addition, scalp hematomas. EENT: Examination benign. NECK: No neck rigidity was observed. NEUROLOGIC EXAMINATION: MENTAL STATUS EXAMINATION: He was awake and alert. He was oriented to self only. He had significant problems with communicating, making further mental status testing impossible. SPEECH: He had a significant dysarthria. LANGUAGE: He was able to comprehend commands of a simple nature quite well. He however had significant problems expressing himself. CRANIAL NERVE EXAMINATION: II: He was able to count fingers and he did blink to threat in all [place]. III, IV & : The external ocular movements were full and the pupils 3 mm in diameter, equal, round, regular, and reactive to light. V: He had normal facial sensations and the temporales, masseters, and pterygoids functioned normally. VII: He had normal facial expressions and no facial asymmetry. VIII: He was able to hear and had no nystagmus. IX: The palate moved symmetrically on phonation. X: He had no hoarseness of voice. XI: The sternocleidomastoids and trapezii functioned relatively well. XII: The tongue was in the midline. MOTOR SYSTEM: The tone was increased in all four extremities with a mild degree of spasticity. Examination of muscle mass revealed generalized muscle wasting. Examination of power was exceedingly difficult to test, however, he had excellent hand technology applications consultant and moved all four extremities with relatively good strength. SENSORY EXAMINATION: He responded appropriately to deep pain. He was unable to cooperate for the sensory modalities. REFLEXES: 1+ and bilaterally symmetrical at the biceps, triceps, brachioradialis , and knees. 0 at both ankles. The plantar responses were flexor bilaterally. COORDINATION, STANCE & GAIT: Could not be tested. ABNORMAL MOVEMENTS: He exhibited constant choreoathetotic movements involving his entire body. Impression/Recommendations Diagnostic Impression 1. Mr. Alex Barrett is a 47-year-old, gentleman, of unknown handedness , who has a past history of Hendricks's disease, a psychiatric illness, and chronic obstructive pulmonary disease. He was hospitalized for an alteration in his mental state with episodic lethargy and agitation, a fever and inability to eat and drink. On being evaluated in the emergency room, he was found to have a urinary tract infection, sepsis, rhabdomyolysis, malnutrition and failure to thrive. 2. He is awake and alert today. He says he feels relatively well. He is having constant choreoathetotic movements. He is unable to tell me where he is. He says he is comfortable. He denies any new neurologic problems. 3. On neurological examination at this time, he is oriented to self only. He is unable to cooperate for further mental status testing. He is severely dysarthric and has constant choreoathetotic movements. 4. Laboratory data on admission revealed a white blood cell count elevated to 12 ,600 with a left-sided shift. His chemistry panel revealed a BUN elevated to 23 , glucose elevated to 183, a total bilirubin elevated to 1.5. AST elevated at 345, ALT elevated to 141. The CK was elevated to 11,712 and his urinalysis revealed 2+ leukocyte esterase, 60-80 red blood cells and 5-10 white blood cells per high-power field. 5. The patient's history and neurological examination are most compatible with underlying Hendricks's disease with a superimposed encephalopathy due to his acute infectious process and dehydration. He also exhibits a significant elevation in his CK compatible with rhabdomyolysis. Recommendations 1. Continue present management. 2. Keep the patient well hydrated. 3. Treatment of acute infectious process in an aggressive manner. 4. In the future if the patient's hepatic function improves, he may respond well to tetrabenazine for his choreoathetotic movements. 5. Observe closely. Joe Jarvis M.D.Meg CYRUS January 21, 2018 14:07
[2018-01-21] MEDS ORDERED: 1/2 NS 1000ml IV ONE ×2 (15:21→15:24)
[2018-01-21] MEDS ORDERED: Tubing IV Secondary IV ONE (15:24)
[2018-01-21 16:00] VITALS: BP 106/84
--- NOTE | 2018-01-21 16:03 | Nephrology Progress Note ---
Assessment/Plan Assessment 1. Acute rhabdomyolysis based on the elevated CK-MB and urine studies. 2. Possible diabetes with elevated blood sugar and ketone and glucose in the urine. 3. Proteinuria with 3+ and need to rule out causes of nephrotic range proteinuria. 4. Fever. 5. Altered mental status. Plan plan to continue ivf replace electrolyte as need it oral feeding check pre-albumin Subjective Constitutional: Reports: no symptoms HEENT: Reports: no symptoms Neurologic/Psychiatric: Reports: no symptoms Subjective no acute events Objective Objective Last 24 Hour Vital Signs Date Time Temp Pulse Resp B/P (MAP) Pulse Ox O2 Delivery O2 Flow Rate FiO2 01/21/18 12:00 97.3 70 20 108/75 96 Room Air 97.3 01/21/18 08:00 97.7 55 20 92/73 95 Room Air 97.7 01/21/18 07:45 75 18 Room Air 21 01/21/18 04:00 97.5 60 18 119/72 98 Room Air 97.5 01/20/18 20:00 98.5 82 18 114/67 100 Room Air 98.5 Intake and Output 01/20/18 01/21/18 19:00 07:00 Intake Total 600 ml 1800 ml Output Total 1400 ml 1300 ml Balance -800 ml 500 ml Intake Oral 600 ml IV Total 1800 ml Output Urine Total 1400 ml 1300 ml # Bowel Movements 2 Laboratory Tests 01/21/18 08:00: White Blood Count 6.5, Red Blood Count 4.01L, Hemoglobin 12.4L, Hematocrit 36.1L , Mean Corpuscular Volume 90, Mean Corpuscular Hemoglobin 30.8, Mean Corpuscular Hemoglobin Concent 34.2, Red Cell Distribution Width 11.0L, Platelet Count 89L, Mean Platelet Volume 9.6, Neutrophils (%) (Auto) , Lymphocytes (%) (Auto) , Monocytes (%) (Auto) , Eosinophils (%) (Auto) , Basophils (%) (Auto) , Differential Total Cells Counted 100, Neutrophils % ( Manual) 65, Lymphocytes % (Manual) 25, Monocytes % (Manual) 9, Eosinophils % ( Manual) 1, Basophils % (Manual) 0, Band Neutrophils 0, Platelet Estimate DecreasedL, Platelet Morphology Normal, Red Blood Cell Morphology Normal, Sodium Level 143, Potassium Level 4.1, Chloride Level 108H, Carbon Dioxide Level 32, Anion Gap 4L, Blood Urea Nitrogen 7, Creatinine 0.5L, Estimat Glomerular Filtration Rate > 60, Glucose Level 110H, Calcium Level 8.7 Height (Feet): 5 Height (Inches): 7.00 Weight (Pounds): 132 Objective HEAD AND NECK: He has multiple lesions on his forehead on the right side, which seems to be scratches, but also may represent possible herpes infection. Mucous membrane are dry. The patient has bitemporal wasting. Sclerae are icteric. Head is normocephalic and atraumatic. LUNGS: Clear to auscultation. CARDIAC: Regular rate and rhythm. S1 and S2. No murmur. No rub. ABDOMEN: Soft, nontender, and nondistended. EXTREMITIES: Has scratch on his right knee. Otherwise, no edema, no clubbing, and no cyanosis. GENITOURINARY: Mckeon catheter is draining a dark color urine, otherwise negative. Sary Acuña MD January 21, 2018 16:02
--- NOTE | 2018-01-21 16:36 | General Progress Note ---
Assessment/Plan Assessment/Plan #. Thrombocytopenia, new onset, potentially secondary to underlying infection, cocci noted. ID recs have been reviewed --> could be also due to antibiotics, vanc, thus closely monitor if worse, consider change abx --> Hepatitis panel and human immunodeficiency virus are negative --> could also be due to splenomegaly and splenic sequestration, appears though plt count uptrending #. Anemia due to underlying chronic disease. Continue to closely monitor #. Failure to thrive. Closely monitor, potentially secondary to mental disorder in addition to chronic medical conditions. #. Shortness of breath, potentially secondary to chronic obstructive pulmonary disease exacerbation. #. 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 #. Schizophrenia. Evaluation by Psychiatry team. #. Protein-calorie malnutrition, which is severe. Subjective Constitutional: Reports: no symptoms HEENT: Reports: no symptoms Cardiovascular: Reports: no symptoms Respiratory: Reports: no symptoms Gastrointestinal/Abdominal: Reports: no symptoms Genitourinary: Reports: no symptoms Neurologic/Psychiatric: Reports: no symptoms Endocrine: Reports: no symptoms Hematologic/Lymphatic: Reports: anemia Allergies: Coded Allergies: No Known Allergies (Unverified , 01/16/18) Subjective responds to vernal stimuli. No s/s of acute medical distress Objective Last 24 Hour Vital Signs Date Time Temp Pulse Resp B/P (MAP) Pulse Ox O2 Delivery O2 Flow Rate FiO2 01/21/18 12:00 97.3 70 20 108/75 96 Room Air 97.3 01/21/18 08:00 97.7 55 20 92/73 95 Room Air 97.7 01/21/18 07:45 75 18 Room Air 21 01/21/18 04:00 97.5 60 18 119/72 98 Room Air 97.5 01/20/18 20:00 98.5 82 18 114/67 100 Room Air 98.5 Intake and Output 01/20/18 01/21/18 19:00 07:00 Intake Total 600 ml 1800 ml Output Total 1400 ml 1300 ml Balance -800 ml 500 ml Intake Oral 600 ml IV Total 1800 ml Output Urine Total 1400 ml 1300 ml # Bowel Movements 2 Laboratory Tests 01/21/18 08:00: White Blood Count 6.5, Red Blood Count 4.01L, Hemoglobin 12.4L, Hematocrit 36.1L , Mean Corpuscular Volume 90, Mean Corpuscular Hemoglobin 30.8, Mean Corpuscular Hemoglobin Concent 34.2, Red Cell Distribution Width 11.0L, Platelet Count 89L, Mean Platelet Volume 9.6, Neutrophils (%) (Auto) , Lymphocytes (%) (Auto) , Monocytes (%) (Auto) , Eosinophils (%) (Auto) , Basophils (%) (Auto) , Differential Total Cells Counted 100, Neutrophils % ( Manual) 65, Lymphocytes % (Manual) 25, Monocytes % (Manual) 9, Eosinophils % ( Manual) 1, Basophils % (Manual) 0, Band Neutrophils 0, Platelet Estimate DecreasedL, Platelet Morphology Normal, Red Blood Cell Morphology Normal, Sodium Level 143, Potassium Level 4.1, Chloride Level 108H, Carbon Dioxide Level 32, Anion Gap 4L, Blood Urea Nitrogen 7, Creatinine 0.5L, Estimat Glomerular Filtration Rate > 60, Glucose Level 110H, Calcium Level 8.7 Height (Feet): 5 Height (Inches): 7.00 Weight (Pounds): 132 General Appearance: no apparent distress EENT: TMs normal Neck: normal alignment Cardiovascular: regular rhythm Respiratory/Chest: lungs clear Abdomen: no organomegaly Extremities: non-tender Edema: no edema noted Leg (L), no edema noted Leg (R) Edema: mild edema Neurologic: alert Skin: warm/dry Kirt Aragon MD January 21, 2018 16:36
[2018-01-21 20:00] VITALS: BP 109/68
--- NOTE | 2018-01-21 23:02 | General Progress Note ---
Assessment/Plan Assessment/Plan Chiara dx mdd psychosis -haldol im -seroquel po he refused -dc sitter Subjective Date patient seen: January 21, 2018 Neurologic/Psychiatric: Reports: anxiety, depressed, emotional problems Allergies: Coded Allergies: No Known Allergies (Unverified , 01/16/18) Subjective the pt has psychomotor agitation. confused. Objective Last 24 Hour Vital Signs Date Time Temp Pulse Resp B/P (MAP) Pulse Ox O2 Delivery O2 Flow Rate FiO2 01/21/18 20:00 98.0 81 21 109/68 94 98.0 01/21/18 19:58 81 20 Room Air 21 01/21/18 16:00 97.3 79 20 106/84 95 Room Air 97.3 01/21/18 12:00 97.3 70 20 108/75 96 Room Air 97.3 01/21/18 08:00 97.7 55 20 92/73 95 Room Air 97.7 01/21/18 07:45 75 18 Room Air 21 01/21/18 04:00 97.5 60 18 119/72 98 Room Air 97.5 Intake and Output 01/20/18 01/21/18 19:00 07:00 Intake Total 600 ml 1800 ml Output Total 1400 ml 1300 ml Balance -800 ml 500 ml Intake Oral 600 ml IV Total 1800 ml Output Urine Total 1400 ml 1300 ml # Bowel Movements 2 Laboratory Tests 01/21/18 08:00: White Blood Count 6.5, Red Blood Count 4.01L, Hemoglobin 12.4L, Hematocrit 36.1L , Mean Corpuscular Volume 90, Mean Corpuscular Hemoglobin 30.8, Mean Corpuscular Hemoglobin Concent 34.2, Red Cell Distribution Width 11.0L, Platelet Count 89L, Mean Platelet Volume 9.6, Neutrophils (%) (Auto) , Lymphocytes (%) (Auto) , Monocytes (%) (Auto) , Eosinophils (%) (Auto) , Basophils (%) (Auto) , Differential Total Cells Counted 100, Neutrophils % ( Manual) 65, Lymphocytes % (Manual) 25, Monocytes % (Manual) 9, Eosinophils % ( Manual) 1, Basophils % (Manual) 0, Band Neutrophils 0, Platelet Estimate DecreasedL, Platelet Morphology Normal, Red Blood Cell Morphology Normal, Sodium Level 143, Potassium Level 4.1, Chloride Level 108H, Carbon Dioxide Level 32, Anion Gap 4L, Blood Urea Nitrogen 7, Creatinine 0.5L, Estimat Glomerular Filtration Rate > 60, Glucose Level 110H, Calcium Level 8.7 Height (Feet): 5 Height (Inches): 7.00 Weight (Pounds): 129 General Appearance: no apparent distress, alert, confused, agitated Rosalinda Chew M.D. January 21, 2018 23:02
[2018-01-22] VITALS: BP 118/70
[2018-01-22] MEDS: Haloperidol 5mg/ml Inj IM PRN (03:29)
[2018-01-22] MEDS: [UNRECOGNIZED DRUG - OTHER] IVPB SCH ×6 (03:33→12:00)
[2018-01-22] MEDS: SODIUM CHLORIDE IVPB SCH ×6 (03:33→12:00)
[2018-01-22 04:00] VITALS: BP 101/81
[2018-01-22] MEDS: NovoLOG Insulin Flexpen SUBQ SCH ×2 (06:30→11:30)
[2018-01-22] MEDS: Amantadine 100mg cap ORAL SCH (07:53)
[2018-01-22] MEDS: Heparin 5000 units/ml inj SUBQ SCH (07:55)
[2018-01-22 08:00] VITALS: BP 118/61
--- NOTE | 2018-01-22 08:44 | General Progress Note ---
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 SNOMED: 81775439 Assessment/Plan fu caloric count fu labs hold PEG plans for now Subjective ROS Limited/Unobtainable: No Allergies: Coded Allergies: No Known Allergies (Unverified , 01/16/18) Subjective no event Objective Last 24 Hour Vital Signs Date Time Temp Pulse Resp B/P (MAP) Pulse Ox O2 Delivery O2 Flow Rate FiO2 01/22/18 08:00 97.3 74 20 118/61 95 97.3 01/22/18 07:33 105 20 Room Air 21 01/22/18 04:00 97.0 76 21 101/81 99 97.0 01/22/18 00:00 97.2 70 21 118/70 97 97.2 01/21/18 20:00 98.0 81 21 109/68 94 98.0 01/21/18 19:58 81 20 Room Air 21 01/21/18 16:00 97.3 79 20 106/84 95 Room Air 97.3 01/21/18 12:00 97.3 70 20 108/75 96 Room Air 97.3 Intake and Output 01/21/18 01/22/18 19:00 07:00 Intake Total 1680 ml 1230 ml Balance 1680 ml 1230 ml Intake Oral 240 ml IV Total 1440 ml 1230 ml # Voids 4 4 Height (Feet): 5 Height (Inches): 7.00 Weight (Pounds): 129 General Appearance: no apparent distress EENT: normal ENT inspection Neck: supple Cardiovascular: normal rate Respiratory/Chest: decreased breath sounds Abdomen: non tender, soft, hypoactive bowel sounds Extremities: non-tender Jabier Rodriguez MD January 22, 2018 08:44
--- NOTE | 2018-01-22 09:52 | General Progress Note ---
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 SNOMED: 53374745 (5) Sepsis ICD Codes: A41.9 - Sepsis, unspecified organism SNOMED: 24391431 (6) Failure to thrive SNOMED: 32800761 (7) Schizophrenia ICD Codes: F20.9 - Schizophrenia, unspecified SNOMED: 06722724 (8) Protein-calorie malnutrition, severe ICD Codes: E43 - Unspecified severe protein-calorie malnutrition SNOMED: 930405535 Status: unchanged Assessment/Plan otpt diet abx heme eval cbc bmp am dc if clear Subjective Constitutional: Reports: weakness Allergies: Coded Allergies: No Known Allergies (Unverified , 01/16/18) All Systems: reviewed and negative except above Subjective confused in bed Objective Last 24 Hour Vital Signs Date Time Temp Pulse Resp B/P (MAP) Pulse Ox O2 Delivery O2 Flow Rate FiO2 01/22/18 08:00 97.3 74 20 118/61 95 97.3 01/22/18 07:33 105 20 Room Air 21 01/22/18 04:00 97.0 76 21 101/81 99 97.0 01/22/18 00:00 97.2 70 21 118/70 97 97.2 01/21/18 20:00 98.0 81 21 109/68 94 98.0 01/21/18 19:58 81 20 Room Air 21 01/21/18 16:00 97.3 79 20 106/84 95 Room Air 97.3 01/21/18 12:00 97.3 70 20 108/75 96 Room Air 97.3 Intake and Output 01/21/18 01/22/18 19:00 07:00 Intake Total 1680 ml 1230 ml Balance 1680 ml 1230 ml Intake Oral 240 ml IV Total 1440 ml 1230 ml # Voids 4 4 Height (Feet): 5 Height (Inches): 7.00 Weight (Pounds): 129 General Appearance: lethargic, confused EENT: normal ENT inspection Neck: normal alignment Cardiovascular: normal peripheral pulses, normal rate, regular rhythm Respiratory/Chest: chest wall non-tender, lungs clear, normal breath sounds Abdomen: normal bowel sounds, non tender, soft Extremities: normal inspection Edema: no edema noted Arm (L), no edema noted Arm (R), no edema noted Leg (L), no edema noted Leg (R), no edema noted Pedal (L), no edema noted Pedal (R), no edema noted Generalized Neurologic: motor weakness Skin: normal pigmentation, warm/dry Shaheed Vazquez January 22, 2018 09:52
[2018-01-22] MEDS ORDERED: 1/2 NS 1000ml IV ONE (09:57)
[2018-01-22 10:23] LABS: CREATINE KINASE 312 U/L (26-308)
[2018-01-22 10:24] LABS: ALANINE AMINOTRANSFERASE 84 U/L (12-78); ALBUMIN 2.6 G/DL (3.4-5.0); ALBUMIN/GLOBULIN RATIO 0.7 (1.0-2.7); ALKALINE PHOSPHATASE 57 U/L (46-116); ANION GAP 4 mmol/L (5-15); ASPARTATE AMINO TRANSFERASE 43 U/L (15-37); BILIRUBIN,TOTAL 0.5 MG/DL (0.2-1.0); BLOOD UREA NITROGEN 5 mg/dL (7-18); CALCIUM 8.4 MG/DL (8.5-10.1); CARBON DIOXIDE 30 MMOL/L (21-32); CHLORIDE 109 MMOL/L (98-107); CREATININE 0.5 MG/DL (0.55-1.30); POTASSIUM 3.9 MMOL/L (3.5-5.1); SODIUM 143 MMOL/L (136-145)
--- NOTE | 2018-01-22 10:42 | Pulmonology Progress Note ---
Assessment/Plan Assessment/Plan ASSESSMENT Sepsis with Bacteremia with Strep Pyogenes group A COPD Betzy chorea transaminitis Severe protein calorie malnutrition Schizophrenia Diabetes mellitus Anemia Prerenal azotemia with contracted alkalosis, likely secondary to intravascular volume depletion Dehydration Sinus tachycardia likely likely secondary to sepsis and severe hypovolemia Acute rhabdomyolysis Acute encephalopathy due to infectious process and dehydration Psychosis Major depressive disorder Thrombocytopenia, new onset Anemia of chronic disease PLAN OF CARE Med Surg floor Antibiotics, ID follows Blood culture initially positive for Strep pyogenes group A, repeated blood culture negative echocardiogram revealed normal left ventricular chamber size, Left ventricular ejection fraction estimated to be grossly normal no evidence of pericardial effusion ,no evidence discrete vegetation seen leukocytosis and fever resolved abdominal ultrasound revealed gallbladder sludge, no dilated bile ducts, no stones . Chest X-Ray -No Acute Intracranial Cardiopulmonary Pathology Transcribing Machine Operator Follows Renal Parameters , Electrolytes Closely Monitored, Electrolytes Replaced As Needed Renal Parameters Stable, Avoid Nephrotoxic CK 312 -down from initial 38867, decrease IVF rate Mckeon dc Supplemental Oxygen As Needed to Keep Pulse Oximetry above 92%, Pulmonary Toilet as Needed Ham Curer Follows Sinus Tachycardia Was Likely Due To Sepsis and Severe Dehydration ,Resolved Neurologist Follows , patient had Superimposed Encephalopathy Due To Infectious Process and Dehydration Recommended to Keep Well-Hydrated LFT Closely Monitored, Trending down Neurologist Recommended Consider Tetrabenazine for Chorea movements when LFT Stable GI Follows Passed swallow evaluation ,Calorie Count , Push oral Fluids PPI Antiemetics When Necessary H&H Remain at the Baseline New-Onset Thrombocytopenia Noted Fire Prevention Officer Follows Hepatitis Panel Negative, HIV Status Negative per Fire Prevention Officer thrombocytopenia Possibly Related to Infectious Process, Closely Monitor counts, Avoid Medications that could potentially cause low PLT DVT Prophylaxis Bowel Regimen PT/ OT Blood Sugar Management with Sliding Scale Insulin awaiting for placement, stable for dc case discussed and evaluated by supervising physician Subjective Allergies: Coded Allergies: No Known Allergies (Unverified , 01/16/18) Subjective afebrile, leukocytosis resolved, No seizure activities No signs of respiratory distress Objective Last 24 Hour Vital Signs Date Time Temp Pulse Resp B/P (MAP) Pulse Ox O2 Delivery O2 Flow Rate FiO2 01/22/18 08:00 97.3 74 20 118/61 95 97.3 01/22/18 07:33 105 20 Room Air 21 01/22/18 04:00 97.0 76 21 101/81 99 97.0 01/22/18 00:00 97.2 70 21 118/70 97 97.2 01/21/18 20:00 98.0 81 21 109/68 94 98.0 01/21/18 19:58 81 20 Room Air 21 01/21/18 16:00 97.3 79 20 106/84 95 Room Air 97.3 01/21/18 12:00 97.3 70 20 108/75 96 Room Air 97.3 Intake and Output 01/21/18 01/22/18 19:00 07:00 Intake Total 1680 ml 1230 ml Balance 1680 ml 1230 ml Intake Oral 240 ml IV Total 1440 ml 1230 ml # Voids 4 4 Objective General Appearance: no acute distress HEENT: normocephalic, atraumatic Respiratory/Chest: lungs clear, no respiratory distress Cardiovascular: normal peripheral pulses, normal rate, no JVD Abdomen: normal bowel sounds, soft, non tender Extremities: no edema Neurologic/Psychiatric: abnormal gait Musculoskeletal: atrophy - BLE Laboratory Tests 01/22/18 09:55: Sodium Level [Pending], Potassium Level [Pending], Chloride Level [Pending], Carbon Dioxide Level [Pending], Anion Gap 4L, Blood Urea Nitrogen [Pending], Creatinine [Pending], Estimat Glomerular Filtration Rate [Pending], Glucose Level [Pending], Calcium Level [Pending], Total Bilirubin 0.5, Aspartate Amino Transf (AST/SGOT) 43H, Alanine Aminotransferase (ALT/SGPT) 84H, Alkaline Phosphatase 57, Total Creatine Kinase 312H, Total Protein 6.4, Albumin 2.6L, Globulin 3.8, Albumin/Globulin Ratio 0.7L Current Medications Medications (Trade) Dose Ordered Sig/Javi Route PRN Reason Start Time Stop Time Status Last Admin Dose Admin Acetaminophen (Tylenol) 650 mg Q4H PRN RECTAL Mild Pain/Temp > 100.5 01/17/18 14:00 02/16/18 13:59 Albuterol/ Ipratropium (Albuterol/ Ipratropium) 3 ml Q4H PRN HHN Shortness of Breath 01/21/18 14:00 01/26/18 13:59 Amantadine HCl (Symmetrel) 100 mg TWICE A DAY ORAL 01/17/18 18:00 02/16/18 08:59 01/22/18 07:53 Clindamycin HCl/ Dextrose 50 ml @ 100 mls/hr Q8H IV 01/19/18 15:00 01/26/18 14:59 01/22/18 06:33 Clonazepam (KlonoPIN) 1 mg DAILY ORAL 01/18/18 09:00 01/24/18 08:59 01/22/18 07:55 Dextrose (Dextrose 50%) 25 ml STAT PRN IV Hypoglycemia 01/17/18 14:30 02/16/18 14:29 Dextrose (Dextrose 50%) 50 ml STAT PRN IV Hypoglycemia 01/17/18 14:30 02/16/18 14:29 Haloperidol Lactate (Haldol) 5 mg Q6H PRN IM Agitation 01/17/18 14:30 02/16/18 14:29 01/22/18 03:29 Heparin Sodium (Porcine) (Heparin 5000 units/ml) 5,000 units EVERY 12 HOURS SUBQ 01/17/18 21:00 02/16/18 08:59 01/17/18 21:04 Insulin Aspart (NovoLOG) BEFORE MEALS AND HS SUBQ 01/17/18 16:30 02/16/18 11:29 01/21/18 21:29 Lamotrigine (LaMICtal) 100 mg TWICE A DAY ORAL 01/17/18 18:00 02/16/18 08:59 01/22/18 07:53 Nitroglycerin (Ntg) 0.4 mg Q5M PRN SL Prn Chest Pain 01/17/18 13:30 02/16/18 01:29 Ondansetron HCl (Zofran) 4 mg Q6H PRN IVP Nausea & Vomiting 01/17/18 13:30 02/16/18 01:29 Penicillin G Potassium 4 mu/ Sodium Chloride 55 ml @ 110 mls/hr Q4H IVPB 01/19/18 15:30 01/26/18 15:29 01/22/18 07:53 Polyethylene Glycol (Miralax) 17 gm DAILYPRN PRN ORAL Constipation 01/17/18 13:30 02/16/18 13:29 Quetiapine Fumarate (SEROquel) 50 mg TWICE A DAY ORAL 01/17/18 18:00 02/16/18 08:59 01/22/18 07:54 Sodium Chloride 1,000 ml @ 100 mls/hr Q10H IV 01/21/18 13:30 02/16/18 01:20 01/21/18 23:42 Temazepam (Restoril) 15 mg HSPRN PRN ORAL Insomnia 01/17/18 21:00 01/24/18 20:59 01/21/18 01:45 Lorraine Moreno NP January 22, 2018 10:42
[2018-01-22] MEDS ORDERED: AMOXICILLIN500 MG ORAL (11:44)
[2018-01-22] MEDS ORDERED: AMOXICILLI250 MG/5 M ORAL ×2 (11:44→11:46)
[2018-01-22 12:00] VITALS: BP 114/85
--- NOTE | 2018-01-22 13:19 | Neurology Progress Note ---
Interim History Interim History Interim History Mr. Barrett is awake and alert. He says he feels relatively well. He is still having constant choreoathetotic movements. He is unable to tell me where he is. He says he is comfortable. He denies any new neurologic problems. Plans are to send him back to his SNF. Review of Systems Neuro Review of Systems Unable to obtain. Objective Physical Exam Last Vital Signs Date Time Temp Pulse Resp B/P (MAP) Pulse Ox O2 Delivery O2 Flow Rate FiO2 01/22/18 12:00 98.1 71 20 114/85 97 Room Air 98.1 01/22/18 07:33 21 Laboratory Tests Test 01/22/18 09:55 Sodium Level 143 MMOL/L (136-145) Potassium Level 3.9 MMOL/L (3.5-5.1) Chloride Level 109 MMOL/L (98-107) H Carbon Dioxide Level 30 MMOL/L (21-32) Anion Gap 4 mmol/L (5-15) L Blood Urea Nitrogen 5 mg/dL (7-18) L Creatinine 0.5 MG/DL (0.55-1.30) L Estimat Glomerular Filtration Rate > 60 mL/min (>60) Glucose Level 110 MG/DL (74-106) H Calcium Level 8.4 MG/DL (8.5-10.1) L Total Bilirubin 0.5 MG/DL (0.2-1.0) Aspartate Amino Transf (AST/SGOT) 43 U/L (15-37) H Alanine Aminotransferase (ALT/SGPT) 84 U/L (12-78) H Alkaline Phosphatase 57 U/L (46-116) Total Creatine Kinase 312 U/L (26-308) H Total Protein 6.4 G/DL (6.4-8.2) Albumin 2.6 G/DL (3.4-5.0) L Globulin 3.8 g/dL Albumin/Globulin Ratio 0.7 (1.0-2.7) L Neurologic Exam Objective PHYSICAL EXAMINATION: GENERAL: He is a well-developed, lean gentleman, lying in bed, with constant choreoathetotic movements. HEAD: Normocephalic with multiple cranial abrasions and in addition, scalp hematomas. EENT: Examination benign. NECK: No neck rigidity was observed. NEUROLOGIC EXAMINATION: MENTAL STATUS EXAMINATION: He was awake and alert. He was oriented to self only. He had significant problems with communicating, making further mental status testing impossible. SPEECH: He had a significant dysarthria. LANGUAGE: He was able to comprehend commands of a simple nature quite well. He however had significant problems expressing himself. CRANIAL NERVE EXAMINATION: II: He was able to count fingers and he did blink to threat in all mont[place]. III, IV & : The external ocular movements were full and the pupils 3 mm in diameter, equal, round, regular, and reactive to light. V: He had normal facial sensations and the temporales, masseters, and pterygoids functioned normally. VII: He had normal facial expressions and no facial asymmetry. VIII: He was able to hear and had no nystagmus. IX: The palate moved symmetrically on phonation. X: He had no hoarseness of voice. XI: The sternocleidomastoids and trapezii functioned relatively well. XII: The tongue was in the midline. MOTOR SYSTEM: The tone was increased in all four extremities with a mild degree of spasticity. Examination of muscle mass revealed generalized muscle wasting. Examination of power was exceedingly difficult to test, however, he had excellent hand soaking tank worker and moved all four extremities with relatively good strength. SENSORY EXAMINATION: He responded appropriately to deep pain. He was unable to cooperate for the sensory modalities. REFLEXES: 1+ and bilaterally symmetrical at the biceps, triceps, brachioradialis , and knees. 0 at both ankles. The plantar responses were flexor bilaterally. COORDINATION, STANCE & GAIT: Could not be tested. ABNORMAL MOVEMENTS: He exhibited constant choreoathetotic movements involving his entire body. Impression/Recommendations Status: unchanged Diagnostic Impression 1. Mr. Alex Barrett is a 47-year-old, gentleman, of unknown handedness , who has a past history of Pennington's disease, a psychiatric illness, and chronic obstructive pulmonary disease. He was hospitalized for an alteration in his mental state with episodic lethargy and agitation, a fever and inability to eat and drink. On being evaluated in the emergency room, he was found to have a urinary tract infection, sepsis, rhabdomyolysis, malnutrition and failure to thrive. 2. He is awake and alert. He says he feels relatively well. He is still having constant choreoathetotic movements. He is unable to tell me where he is. He says he is comfortable. He denies any new neurologic problems. Plans are to send him back to his SNF. 3. On neurological examination at this time, he is oriented to self only. He is unable to cooperate for further mental status testing. He is severely dysarthric and has constant choreoathetotic movements. 4. Laboratory data on admission revealed a white blood cell count elevated to 12 ,600 with a left-sided shift. His chemistry panel revealed a BUN elevated to 23 , glucose elevated to 183, a total bilirubin elevated to 1.5. AST elevated at 345, ALT elevated to 141. The CK was elevated to 11,712 and his urinalysis revealed 2+ leukocyte esterase, 60-80 red blood cells and 5-10 white blood cells per high-power field. 5. The patient's history and neurological examination are most compatible with underlying Pennington's disease with a superimposed encephalopathy due to his acute infectious process and dehydration. His encephalopathy has cleared up. Recommendations 1. Continue present management. 2. Keep the patient well hydrated at all times. 3. Treatment of acute infectious process in an aggressive manner. 4. Trial of tetrabenazine for his choreoathetotic movements. 5. Agree with discharge back to SNF. Pedro Jarvis M.D., M.S.P.H. PEDRO JARVIS January 22, 2018 13:19
--- NOTE | 2018-01-22 23:50 | Cardiology Progress Note ---
Assessment/Plan Assessment/Plan 1. Sinus tachycardia, resolved likely secondary to severe hypovolemia and sepsis , continue ABx and hydration. 2. History of COPD. Chest x-ray shows normal cardiac silhouette with no acute cardiopulmonary disease. 2D echo reveals normal LV systolic function with LVEF at 50%. Subjective Subjective Not on the telemetry unit. Non-verbal. Objective Last 24 Hour Vital Signs Date Time Temp Pulse Resp B/P (MAP) Pulse Ox O2 Delivery O2 Flow Rate FiO2 01/22/18 12:00 98.1 71 20 114/85 97 Room Air 98.1 01/22/18 08:00 97.3 74 20 118/61 95 97.3 01/22/18 07:33 105 20 Room Air 21 01/22/18 04:00 97.0 76 21 101/81 99 97.0 01/22/18 00:00 97.2 70 21 118/70 97 97.2 Intake and Output 01/21/18 01/22/18 19:00 07:00 Intake Total 1680 ml 1230 ml Balance 1680 ml 1230 ml Intake Oral 240 ml IV Total 1440 ml 1230 ml # Voids 4 4 2D Echo: LVEF 50%, limited study. Laboratory Tests Test 01/22/18 09:55 Sodium Level 143 MMOL/L (136-145) Potassium Level 3.9 MMOL/L (3.5-5.1) Chloride Level 109 MMOL/L (98-107) H Carbon Dioxide Level 30 MMOL/L (21-32) Anion Gap 4 mmol/L (5-15) L Blood Urea Nitrogen 5 mg/dL (7-18) L Creatinine 0.5 MG/DL (0.55-1.30) L Estimat Glomerular Filtration Rate > 60 mL/min (>60) Glucose Level 110 MG/DL (74-106) H Calcium Level 8.4 MG/DL (8.5-10.1) L Total Bilirubin 0.5 MG/DL (0.2-1.0) Aspartate Amino Transf (AST/SGOT) 43 U/L (15-37) H Alanine Aminotransferase (ALT/SGPT) 84 U/L (12-78) H Alkaline Phosphatase 57 U/L (46-116) Total Creatine Kinase 312 U/L (26-308) H Total Protein 6.4 G/DL (6.4-8.2) Albumin 2.6 G/DL (3.4-5.0) L Globulin 3.8 g/dL Albumin/Globulin Ratio 0.7 (1.0-2.7) L Objective HEENT: Atraumatic and normocephalic. Anicteric. Bitemporal wasting. There is dry mucosal membrane. Pupils are equal, round, and reactive to light and accommodation. Extraocular muscles intact. NECK: JVP less than 5 cm. No carotid bruit. Carotid upstrokes 2+ bilaterally. CARDIOVASCULAR: Normal S1 and S2. Regular rate and rhythm. Tachycardic. No murmurs, gallops, or rubs. PMI is at fourth intercostal space in the midclavicular line. LUNGS: Clear to auscultation bilaterally. ABDOMEN: Soft, nontender, and nondistended. No hepatosplenomegaly. Positive bowel sounds. EXTREMITIES: No evidence of edema, clubbing, or cyanosis. José Luis Costa MD January 22, 2018 23:50
--- NOTE | 2018-01-23 12:20 | General Progress Note ---
Assessment/Plan Assessment/Plan Chiara dx mdd psychosis -haldol im -seroquel po he refused -dc sitter Subjective Date patient seen: January 22, 2018 Neurologic/Psychiatric: Reports: anxiety, depressed, emotional problems Allergies: Coded Allergies: No Known Allergies (Unverified , 01/16/18) Subjective the pt has psychomotor agitation. confused. Objective Intake and Output 01/22/18 01/23/18 19:00 07:00 Intake Total 510 ml Balance 510 ml IV Total 510 ml Height (Feet): 5 Height (Inches): 7.00 Weight (Pounds): 125 General Appearance: no apparent distress, alert, confused, agitated Rosalinda hCew M.D. January 23, 2018 12:20
--- NOTE | 2018-01-23 14:01 | General Progress Note ---
Assessment/Plan Assessment/Plan #. Thrombocytopenia, new onset, potentially secondary to underlying infection, cocci noted. ID recs have been reviewed --> could be also due to antibiotics, vanc, thus closely monitor if worse, consider change abx --> Hepatitis panel and human immunodeficiency virus are negative --> could also be due to splenomegaly and splenic sequestration, appears though plt count uptrending #. Anemia due to underlying chronic disease. Continue to closely monitor #. Failure to thrive. Closely monitor, potentially secondary to mental disorder in addition to chronic medical conditions. #. Shortness of breath, potentially secondary to chronic obstructive pulmonary disease exacerbation. #. 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 #. Schizophrenia. Evaluation by Psychiatry team. #. Protein-calorie malnutrition, which is severe. Subjective Date patient seen: January 22, 2018 Allergies: Coded Allergies: No Known Allergies (Unverified , 01/16/18) All Systems: reviewed and negative except above Subjective Patient is seen asleep in room. No s/s of acute medical distress Objective Intake and Output 01/22/18 01/23/18 19:00 07:00 Intake Total 510 ml Balance 510 ml IV Total 510 ml Height (Feet): 5 Height (Inches): 7.00 Weight (Pounds): 125 General Appearance: no apparent distress EENT: normal ENT inspection Neck: supple Cardiovascular: normal rate Respiratory/Chest: lungs clear Kirt Aragon MD January 23, 2018 14:01
--- NOTE | 2018-01-23 14:01 | General Progress Note ---
Assessment/Plan Assessment/Plan #. Thrombocytopenia, new onset, potentially secondary to underlying infection, cocci noted. ID recs have been reviewed --> could be also due to antibiotics, vanc, thus closely monitor if worse, consider change abx --> Hepatitis panel and human immunodeficiency virus are negative --> could also be due to splenomegaly and splenic sequestration, appears though plt count uptrending #. Anemia due to underlying chronic disease. Continue to closely monitor #. Failure to thrive. Closely monitor, potentially secondary to mental disorder in addition to chronic medical conditions. #. Shortness of breath, potentially secondary to chronic obstructive pulmonary disease exacerbation. #. 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 #. Schizophrenia. Evaluation by Psychiatry team. #. Protein-calorie malnutrition, which is severe. Subjective Allergies: Coded Allergies: No Known Allergies (Unverified , 01/16/18) Subjective Patient is seen asleep in room. No s/s of acute medical distress Objective Intake and Output 01/22/18 01/23/18 19:00 07:00 Intake Total 510 ml Balance 510 ml IV Total 510 ml Height (Feet): 5 Height (Inches): 7.00 Weight (Pounds): 125 Kirt Aragon MD January 23, 2018 14:01
--- NOTE | 2018-01-24 16:51 | Discharge Summary ---
Discharge Summary Hospital Course Date of Admission January 16, 2018 at 15:48 Date of Discharge January 22, 2018 at 13:37 Admitting Diagnosis SEPSIS, FAILURE TO THRIVE HPI Alex Barrett is a 47 year old male who was admitted on January 16, 2018 at 15:48 for Failure To Thrive Hospital Course df summary #[id number] Discharge Discharge Disposition Patient was discharged to Lorraine Moreno NP January 24, 2018 16:51
--- NOTE | 2018-01-24 22:30 | Discharge Summary 2 SIG ---
DATE OF ADMISSION: 01/16/2018 DATE OF DISCHARGE: 01/22/2018 REASON FOR ADMISSION: 47-year-old male with past medical history significant for Betzy disease, paranoid schizophrenia, presented to emergency department with fever and generalized weakness. Upon evaluation, temperature 101 degrees. The patient exhibited tachycardia. Blood pressure was elevated 163/84, pulse oximetry was stable on room air. WBC 12.6. Hemoglobin and hematocrit stable. Stable electrolytes and renal parameters. Slightly elevated total bilirubin 1.5. ALT 141 and AST 345. Total CK 11,712. BUN 23 and creatinine 1.0. Urinalysis with +3 protein, +2 glucose, +1 ketones, +5 occult blood, negative for nitrites, and few bacteria. EKG revealed normal sinus rhythm, no acute ischemic changes. Chest x-ray revealed no acute cardiopulmonary pathology. The patient admitted with diagnoses of sepsis, transaminitis, rhabdomyolysis, Betzy chorea, COPD, schizophrenia, and severe protein-calorie malnutrition. CONSULTANTS: 1. Head Up Operator, Dr. Costa. 2. Polisher Brass, Dr. Braynt. 3. Bag Builder, Dr. Acuña. 4. Infectious Disease specialist, Dr. Mcghee. 5. Neurologist, Dr. Jarvis. 6. Brush Finisher/oncologist, Dr. Aragon. 7. Psychiatrist, Dr. Chew. HOSPITAL STAY: The patient admitted to medical/surgical floor. The patient started on empiric antibiotics and IV fluids. Initial blood culture revealed Streptococcus pyogenes group A. Repeated blood cultures on 01/17 were negative. Wound culture revealed MRSA. Leukocytosis resolved. Fever resolved. 2D echo revealed no evidence of vegetation. Transaminitis was improving. Hepatitis panel was negative. Ultrasound of the abdomen revealed gallbladder sludge, no definite stone, negative for dilated duct, borderline splenomegaly. HIV test was negative. Chest x-ray revealed no acute cardiopulmonary disease. The patient was on antibiotic as per ID management. Upon discharge, it was changed to oral amoxicillin to be continued for 14 days for bacteremia. Echocardiogram revealed normal left ventricular chamber size, left ventricular ejection fraction estimated to be grossly normal, no evidence of pericardial effusion, no evidence of discrete vegetation seen. Patient was closely monitored. The patient had initially been on aggressive IV hydration, and chief creative officer closely followed. Renal parameters and electrolytes were closely monitored and electrolytes replaced as needed. Renal parameters were stable. Nephrotoxins were avoided. Mckeon catheter was discontinued. CK down to 312 from initial 11,712. LFT trending down. Neurologist closely followed. The patient had superimposed encephalopathy due to infectious process and dehydration as per neurologist. He recommended to keep the patient well hydrated. Neurologist recommended to consider tetrabenazine for chorea movement when LFT stable. GI specialist closely followed. The patient passed swallow evaluation. The patient was on calorie count. Oral fluids were pushed. Antiemetics were on board as needed. The patient started on PPI. Hemoglobin and hematocrit remained at the baseline. Noted new onset of thrombocytopenia. Brush Finisher followed. Hepatitis panel was negative. HIV status was negative. Per high scaler, thrombocytopenia possibly related to infectious process. He recommended close monitoring and avoid medications that could potentially cause low platelet count. DVT prophylaxis provided. Bowel regimen instituted. Blood sugar was managed with sliding scale of insulin. The patient was working with physical and occupational therapists. Psychiatrist had seen and evaluated the patient, diagnosed the patient with major depressive disorder and psychosis, and optimized psychiatric medication regimen. The patient was stable for discharge to [facility] facility. FINAL DIAGNOSES: 1. Sepsis with bacteremia with Strep pyogenes group A. 2. COPD. 3. Seneca chorea. 4. Transaminitis. 5. Severe protein-calorie malnutrition. 6. Schizophrenia. 7. Diabetes mellitus. 8. Anemia. 9. Prerenal azotemia with contracted alkalosis, likely secondary to intravascular volume depletion. 10. Dehydration. 11. Sinus tachycardia, likely secondary to sepsis and severe hypovolemia. 12. Acute rhabdomyolysis, resolved. 13. Acute encephalopathy due to infectious process and dehydration. 14. Psychosis. 15. Major depressive disorder. 16. Thrombocytopenia, new onset. 17. Anemia of chronic disease. DISCHARGE MEDICATIONS: See medication reconciliation list. DISCHARGE INSTRUCTIONS: The patient was discharged to [facility] facility. Follow up with medical doctor at the facility. Shaheed Vazquez D.O. Lorraine Plummerein), N.PChana DR: ERI JOB#: [id number] CC: SYLVIA
== END 2018-01-22 13:37 | DRG 871 ==
LOC: EDBD 14:44 → EMR 15:26 → 4W 15:48 → EDBEDREQ 15:55 → EDBEDREQSVC 17:58 → EDBEDREQ 18:13 → 2E 18:14 → 4E 01-17 13:25
DX: A40.0 Sepsis due to streptococcus, group A (principal); E43 Unspecified severe protein-calorie malnutrition; G93.40 Encephalopathy, unspecified; M62.82 Rhabdomyolysis; N39.0 Urinary tract infection, site not specified; G10 Huntington's disease; F20.0 Paranoid schizophrenia; Z68.1 Body mass index [BMI] 19.9 or less, adult; J44.9 Chronic obstructive pulmonary disease, unspecified; E11.9 Type 2 diabetes mellitus without complications; R62.7 Adult failure to thrive; F32.9 Major depressive disorder, single episode, unspecified; E86.0 Dehydration; F29 Unspecified psychosis not due to a substance or known physiological condition; D69.6 Thrombocytopenia, unspecified; D63.8 Anemia in other chronic diseases classified elsewhere; R74.0 Nonspecific elevation of levels of transaminase and lactic acid dehydrogenase [LDH]
CPT/HCPCS: 36415; 71045; 74230; 76700; 80048; 80053; 80202; 81001; 81003; 82044; 82248; 82550; 82553; 82570; 82962; 83605; 83735; 84100; 84300; 84484; 85007; 85025; 86703; 86705; 86709; 86803; 87040; 87070; 87081; 87181; 87205; 87340; 93005; 93306; 94664; 97803; 99285; J1815; S0077